=== PATIENT | female | born 1975 | race Caucasian/White ===

== ENCOUNTER → 2019-05-20 11:30 | Outpatient (CLI) | payer BC, MEDICAID, SELFPAY ==
--- NOTE | ~2019-05-20 | XR_ITS ---
XR lumbar spine 2-3V DATE: 05/20/2019 11:58 INDICATION: Left leg pain TECHNIQUE: AP, lateral, coned lateral lumbosacral views COMPARISON: 10/15/2017 lumbar spine FINDINGS: Surgical clips, right upper quadrant. Normal alignment of the lumbar spine. No fracture or bone destruction or spondylolisthesis. Lumbar an d lumbosacral interspaces appear preserved. The sacral iliac joints appear normal. IMPRESSION: No significant abnormality of the lumbar spine Reviewed, dictated and finalized at location A. 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
--- NOTE | ~2019-05-20 | XR_ITS ---
XR tibia fibula LT 2V DATE: 05/20/2019 11:58 INDICATION: Left leg pain TECHNIQUE: 2 views COMPARISON: None FINDINGS: No fracture, dislocation, periosteal reaction or bone destruction. IMPRESSION: Negative Reviewed, dictated and finalized at location A. 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
== END ==
PROVIDERS: PCP Family Medicine; Visit Provider Family Medicine
DX: M79.605 Pain in left leg (principal); E55.9 Vitamin D deficiency, unspecified; D50.9 Iron deficiency anemia, unspecified; D51.9 Vitamin B12 deficiency anemia, unspecified; R20.9 Unspecified disturbances of skin sensation; Z13.1 Encounter for screening for diabetes mellitus
CPT/HCPCS: 72100; 73590

== ENCOUNTER 2019-05-20 13:18 | Outpatient (CLI) | payer BC, MEDICAID, SELFPAY ==
[2019-05-20 14:45] LABS: Basophils Absolute Auto 0.1 K/mm3 (0.0-0.1); Basophils Percent Auto 0.7 % (0.2-1.2); Eosinophils Absolute Auto 0.1 K/mm3 (0-0.3); Eosinophils Percent Auto 1.4 % (0-4.4); Hematocrit 34.7 % (37.0-47.0); Hemoglobin 11.7 g/dL (12.0-15.0); Immature Granulocyte Absolute 0.03 K/mm3 (0.00-0.031); Immature Granulocyte Percent A 0.4 % (0-0.5); Lymphocytes Absolute Auto 1.49 K/mm3 (0.9-3.2); Lymphocytes Percent Auto 20.4 % (18.3-44.2); Mean Corpuscular HGB Conc 33.7 g/dl (32-36); Mean Corpuscular Hemoglobin 29.7 pg (26-34); Mean Corpuscular Volume 88.1 fl (80-100); Mean Platelet Volume 9.7 fl (7.4-10.4); Monocytes Absolute Auto 0.5 K/mm3 (0.1-0.6); Monocytes Percent Auto 6.3 % (2.6-8.5); Neutrophils Absolute Auto 5.2 K/mm3 (1.3-6.7); Neutrophils Percent Auto 70.8 % (45.5-73.1); Platelet Count Result 329 k/mm3 (150-375); Red Blood Count 3.94 M/mm3 (4.2-5.4); Red Cell Distribution Width 12.7 % (11.5-14.5); White Blood Count 7.3 K/mm3 (4.5-10.0)
[2019-05-20 14:54] LABS: Alanine Aminotransferase 26 U/L (4-35); Albumin Level 4.6 g/dL (3.5-5.1); Alkaline Phosphatase 80 U/L (38-126); Aspartate Amino Transferase 34 U/L (14-36); Bilirubin,Total 0.4 mg/dL (0.2-1.3); Blood Urea Nitrogen 9 mg/dL (7-17); Calcium 9.4 mg/dL (8.4-10.2); Carbon Dioxide 25 mmol/L (22-30); Chloride 99 mmol/L (98-107); Estimated Glomerular Filt Rate > 60; Glucose 88 mg/dL (65-105); Potassium 3.7 mmol/L (3.4-5.0); Sodium 139 mmol/L (137-145)
[2019-05-20 15:24] LABS: Iron 59 ug/dL (37-170)
[2019-05-20 15:29] LABS: Percent Iron Saturation 16 % (20-50)
[2019-05-20 15:34] LABS: Vitamin D 25 Hydroxy 20.8 ng/mL
[2019-05-20 16:00] LABS: Folic Acid 11.7 ng/mL (2.76->20)
== END 2019-05-20 13:19 | disposition home or self-care (01) ==
PROVIDERS: PCP Family Medicine; Visit Provider Family Medicine
DX: M79.605 Pain in left leg (principal); D50.9 Iron deficiency anemia, unspecified; E55.9 Vitamin D deficiency, unspecified; D51.9 Vitamin B12 deficiency anemia, unspecified; R20.9 Unspecified disturbances of skin sensation; Z13.1 Encounter for screening for diabetes mellitus
CPT/HCPCS: 36415; 80053; 82306; 82607; 82746; 83540; 83550; 84443; 85025

== ENCOUNTER → 2019-08-14 15:04 | Outpatient (CLI) | payer BC, SELFPAY ==
--- NOTE | ~2019-08-14 | XR_ITS ---
EXAMINATION: XR foot RT min 3V EXAM DATE: 08/14/2019 15:36 INDICATION: Foreign body removal 2 weeks ago. Make sure no foreign body exists. TECHNIQUE: Right foot dorsoplantar, lateral and oblique projections obtained and reviewed. Compariso n is made to prior examination from 12/05/2014. FINDINGS: Right metatarsal bones unremarkable. There are no acute fractures or dislocations identifi ed. There is no subcutaneous gas. The soft tissue is unremarkable. Moderate size calcaneal spurs. 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 There are no radiopaque foreign bodies. Please note that wood and most nonmetallic foreign bodies ma y be difficult to identify on imaging. What type of foreign body was removed? IMPRESSION: No radiopaque foreign bodies identified. Reviewed, dictated and finalized at location A.
== END ==
PROVIDERS: PCP Family Medicine; Visit Provider Podiatrist Foot & Ankle Surgery
DX: S99.921A Unspecified injury of right foot, initial encounter (principal)
CPT/HCPCS: 73630

== ENCOUNTER 2019-09-02 11:14 | Outpatient (CLI) | payer BC, MEDICAID, SELFPAY ==
--- NOTE | ~2019-09-02 | CT_ITS ---
EXAMINATION: CT sinus wo con DATE: 09/02/2019 12:06 INDICATION: Chronic congestion. Chronic sinusitis. TECHNIQUE: Computed tomography (CT) of the paranasal sinuses was performed without contrast. Iterativ e reconstruction technique was employed. Exam dose: 275.33 mGy-cm total exam DLP. COMPARISON: None FINDINGS: There is leftward deviation of nasal septum. The nasal turbinates are prominent, relatively symmetric. There is intralamellar cell of both middle nasal turbinates, more prominent on the left. An up to 13 mm polyp or mucous retention cyst is noted in the lower lateral base of the right maxilla ry sinus. There is mild focal soft tissue swelling of some ethmoid air cells bilaterally. Otherwise the paranas al sinuses are normally developed and aerated. The ostiomeatal units are patent bilaterally. Normal development and aeration of the mastoid air cells. Middle and inner ear apparatus appear sandi l bilaterally. IMPRESSION: Leftward deviation of nasal septum Interlamellar cell of both middle nasal turbinates 13 mm polyp or mucous retention cyst of right maxillary sinus Reviewed, dictated and finalized at Location A. Reviewed, dictated and finalized at location A.
== END 2019-09-02 11:15 | disposition home or self-care (01) ==
LOC: ANHIMG 11:37
PROVIDERS: PCP Family Medicine; Visit Provider Nurse Practitioner Family
DX: J32.9 Chronic sinusitis, unspecified (principal); J34.2 Deviated nasal septum; J34.89 Other specified disorders of nose and nasal sinuses
CPT/HCPCS: 70486

== ENCOUNTER 2019-10-16 17:58 | Emergency (ER) | payer MEDICAID, SELFPAY ==
[2019-10-16 18:00] VITALS: BP 157/95; PULSE 89; RESP 20; TEMP 37.7; O2SAT 100
--- NOTE | 2019-10-16 18:02 | ED.GENADULT ---
HPI - General Adult General Stated complaint: bruised right side Time Seen by Provider: 10/16/19 18:02 Source: patient Mode of arrival: ambulatory Limitations: no limitations History of Present Illness HPI narrative: 44-year-old female patient presents to the [facility] with complaints of a bruise to the right lower flank area that she first noticed today. Denies any recent injury that she is aware of. Patient states that actually does not even hurt she is not having any difficulty walking however she noticed a bruise and so her family told her to come and get checked out. Patient states that she was moving some stuff the other day at her mother's house but does not remember any injury or bumping anything that she can remember. Denies being on any blood thinners. Related Data Home Medications Medication Instructions Recorded Confirmed ferrous sulfate 04/02/19 furosemide 04/02/19 potassium chloride meq PO 04/02/19 fexofenadine 180 mg tablet 180 mg PO DAILY 09/18/19 Allergies Allergy/AdvReac Type Severity Reaction Status Date / Time nitrofurantoin Allergy Mild Rash Verified 10/16/19 18:19 [From Macrobid] Sulfa (Sulfonamide Allergy Unknown RASH Verified 10/16/19 18:19 Antibiotics) PROCHLORPERAZINE EDISYLATE Allergy Mild ANXIOUS Uncoded 10/16/19 18:19 Review of Systems Review of Systems: Narrative: CONSTITUTIONAL: Denies fever, chills, or sweats. EYES: Denies visual changes, redness, or discharge. ENT: Denies rhinorrhea, congestion, sore throat, or otalgia. CARDIOVASCULAR: Denies chest pain, palpitations, or edema. RESPIRATORY: Denies cough or dyspnea. GASTROINTESTINAL: Denies abdominal pain, nausea, vomiting, or diarrhea. GENITOURINARY: Denies dysuria or hematuria. SKIN: Denies rash or itching. Positive bruise to right flank/lower abdomen area MUSCULOSKELETAL: Denies back pain, joint pain, or myalgia. NEUROLOGIC: Denies headache, numbness, or weakness. PSYCHIATRIC: Denies anxiety or depression. [facility] Past Medical History Medical History (Updated 10/16/19 @ 18:23 by TOSIN Wright) Gallbladder attack Hypertension Surgical History Surgical History (Updated 10/16/19 @ 18:20 by TOSIN Wright) History of hernia repair Comments At the time of my signature I agree with nursing past medical history, surgical, social, and family history. There is no relevant family history pertinent to the presenting complaint. Exam Narrative: Exam Narrative: GENERAL: Well-appearing, well-nourished, and in no acute distress. HEAD: Normocephalic, atraumatic. EYES: PERRLA and EOMI. ENT: Nares clear, no rhinorrhea or epistaxis. Mucous membranes moist. NECK: Supple. No lymphadenopathy CHEST: Clear to auscultation. No respiratory distress. HEART: Regular rate and rhythm. No murmur heard. Normal peripheral pulses. ABDOMEN: Soft, nontender, nondistended, normal active bowel sounds. EXTREMITIES: Normal range of motion. No edema. SKIN: Warm, dry, no rash. Patient has leg bruise noted to the right flank/abdomen area. The bruise measures approximately 8 to 10 cm. It does appear healing for the edges have yellowing/greenish color to it. Patient has good range of motion with can walk with a steady gait. Not complaining of any pain. Which NEURO: No focal deficits. Alert and oriented x3. Course Vital Signs Vital signs: Vital signs reviewed. Medical Decision Making Differential Diagnosis Differential Diagnosis: Differential diagnosis: Abscess, cellulitis, hidradenitis, laceration, puncture wound. Discussed with patient that it does appear that she has a bruise to the area however does appear to be healing due to the fact that the edges are turning to a yellowish-greenish color. Discussed with her that most likely she hit something to cause the bruising but the bruising does look old does not look new today. Discussed with patient that since is not even really bothering her there is not much I can do I would
== END 2019-10-16 18:25 | disposition home or self-care (01) ==
PROVIDERS: Emergency Provider Nurse Practitioner Family; PCP Family Medicine
DX: S30.1XXA Contusion of abdominal wall, initial encounter (principal); X58.XXXA Exposure to other specified factors, initial encounter; I10 Essential (primary) hypertension
CPT/HCPCS: 99211; G0463

== ENCOUNTER 2019-11-19 18:31 | Emergency (ER) | payer OTHER, SELFPAY ==
[2019-11-19 18:41] VITALS: BP 145/83; PULSE 69; RESP 16; TEMP 37.1; O2SAT 100
--- NOTE | 2019-11-19 18:47 | ED.WOUNDLAC ---
HPI - Wound/Laceration General Chief Complaint: Wound/Laceration Stated Complaint: laceration Time Seen by Provider: 11/19/19 18:43 Source: patient and RN notes reviewed Mode of arrival: ambulatory Limitations: no limitations History of Present Illness HPI narrative: Patient presents today complaining of a laceration to her left fourth finger that was sustained 1 hour prior to arrival when she was moving an entertainment center and a piece of glass shattered. Denies foreign body sensation. She is up-to-date on her tetanus vaccine. Denies any current pain. She has tried no [id number] interventions prior to arrival. She sought treatment today because the area would not stop bleeding. Related Data Home Medications Medication Instructions Recorded Confirmed ferrous sulfate 325 mg PO DAILY 04/02/19 10/16/19 furosemide 40 mg PO DAILY 04/02/19 10/16/19 potassium chloride 20 meq PO DAILY 04/02/19 10/16/19 fexofenadine 180 mg tablet 180 mg PO DAILY 09/18/19 10/16/19 Allergies Allergy/AdvReac Type Severity Reaction Status Date / Time nitrofurantoin Allergy Mild Rash Verified 10/17/19 09:09 [From Macrobid] Sulfa (Sulfonamide Allergy Unknown RASH Verified 10/17/19 09:09 Antibiotics) PROCHLORPERAZINE EDISYLATE Allergy Mild ANXIOUS Uncoded 10/17/19 09:09 Review of Systems Review of Systems: Narrative: CONSTITUTIONAL: Denies body aches, fever, chills, or sweats. EYES: Denies visual changes, redness, or discharge. ENT: Denies rhinorrhea, congestion, sore throat, or otalgia. CARDIOVASCULAR: Denies chest pain, palpitations, or edema. RESPIRATORY: Denies cough or dyspnea. GASTROINTESTINAL: Denies abdominal pain, nausea, vomiting, or diarrhea. GENITOURINARY: Denies dysuria or hematuria. SKIN: Denies rash, itching. + Laceration to left fourth finger MUSCULOSKELETAL: Denies back pain, joint pain, or myalgia. NEUROLOGIC: Denies headache, numbness, tingling, or weakness. PSYCH: Denies depression or anxiety. [facility] Past Medical History Medical History Gallbladder attack Hypertension Surgical History Surgical History (System 10/17/19 @ 09:09 by Mariia Caldwell) History of hernia repair Social History Social History (System 10/17/19 @ 09:09 by Mariia Caldwell) Alcohol intake: never Comments At time of signature, I have reviewed and agree with nursing past medical, surgical, social and family history unless otherwise noted. Please see nursing chart for further information. There is no relevant family history pertinent to the presenting complaint Exam Narrative: Exam Narrative: GENERAL: Well-appearing, well-nourished, and in no acute distress. HEAD: Normocephalic, atraumatic. EYES: EOMI. No redness or drainage. Conjunctivae normal. ENT: Mucous membranes pink and moist. NECK: Normal AROM. CHEST: No respiratory distress. EXTREMITIES: Normal range of motion. No edema. SKIN: Warm, dry, no rash. Normal skin turgor. 4 mm very superficial flap laceration to the pad of the left fourth finger. No active bleeding. No foreign body noted. Flap was replaced. Neosporin and Band-Aid applied after exam. Distal sensation intact. Capillary refill normal. Full range of motion of the finger. NEURO: No focal deficits. Alert and oriented x3. Gait steady. PSYCH: Normal affect. No signs of depression or anxiety. Course Vital Signs Vital signs: Vital Signs Temperature 98.7 F 11/19/19 18:41 Pulse Rate 69 11/19/19 18:41 Respiratory Rate 16 11/19/19 18:41 Blood Pressure 145/83 H 11/19/19 18:41 Pulse Oximetry 100 11/19/19 18:41 Temperature 98.7 F 11/19/19 18:41 Pulse Rate 69 11/19/19 18:41 Respiratory Rate 16 11/19/19 18:41 Blood Pressure 145/83 H 11/19/19 18:41 Pulse Oximetry 100 11/19/19 18:41 Reviewed. Pt has been instructed to follow up with her PCP regarding her elevated blood pressure today. MDM
== END 2019-11-19 18:55 | disposition home or self-care (01) ==
PROVIDERS: Emergency Provider Nurse Practitioner; PCP Family Medicine
DX: S61.215A Laceration without foreign body of left ring finger without damage to nail, initial encounter (principal); W25.XXXA Contact with sharp glass, initial encounter; I10 Essential (primary) hypertension
CPT/HCPCS: 99212; G0463

== ENCOUNTER → 2019-11-26 11:58 | Outpatient (CLI) | payer OTHER, SELFPAY ==
--- NOTE | ~2019-11-26 | XR_ITS ---
EXAMINATION: XR cervical spine 4-5V DATE: 11/26/2019 13:00 INDICATION: Intermittent posterior neck pain. TECHNIQUE: 4 views of cervical spine were obtained. COMPARISON: None. FINDINGS: There is mild kyphosis of cervical spine. There is 6 degrees levocurvature of cervicothorac ic spine. Vertebral body heights are normal. There is mildly decreased disc height at C5-C6. There is multilevel mild facet joint osteoarthritis. There is mild central canal stenosis at C5-C6. No prever tebral soft tissue swelling. IMPRESSION: 1. Mild cervical spondylosis. Reviewed, dictated and finalized at location A.
== END ==
PROVIDERS: PCP Family Medicine; Visit Provider Family Medicine
DX: M47.892 Other spondylosis, cervical region (principal)
CPT/HCPCS: 72050

== ENCOUNTER 2019-11-27 14:39 | Outpatient (CLI) | payer OTHER, SELFPAY ==
--- NOTE | ~2019-11-27 | CT_ITS ---
EXAMINATION: CT abdomen pelvis w con DATE: 11/27/2019 15:20 INDICATION: Nausea and unspecified abdominal pain TECHNIQUE: Computed tomography (CT) of the abdomen and pelvis was performed with 100 mL Omnipaque-350 intravenous contrast. Automated exposure control and iterative reconstruction technique were employe d. The dose-length product was 1082.52 mGy-cm. COMPARISON: 11/12/2018 FINDINGS: Minimal atelectasis at the lingula. Mild elevation of the left hemidiaphragm. Heart size is normal. N o pericardial or pleural effusion. Cholecystectomy clips at the gallbladder fossa. Liver, spleen, العلي creas, bilateral adrenal glands and kidneys are normal. There is mild colonic diverticulosis with a s igmoid predominance. There is no adjacent inflammatory change to suggest diverticulitis. No bowel ob struction. Appendix is normal. Bladder, anteverted uterus and right adnexa are normal. 3 cm left adne xal cyst. No free intraperitoneal gas or fluid. No pathologically enlarged abdominal or pelvic lympha denopathy. Tiny fat-containing umbilical hernia. Small bone island at the left femoral head. Mild sca ttered degenerative skeletal changes in the pelvis. IMPRESSION: 1. Normal appendix. 2. 3 cm left adnexal cyst/follicle. No other acute intra-abdominal/pelvic process. 3. Mild diverticulosis. Reviewed, dictated and finalized at location A. IMPRESSION: 1. Normal appendix. 2. 3 cm left adnexal cyst/follicle. No other acute intra-abdominal/pelvic proce ss. 3. Mild diverticulosis.
[2019-11-27 15:08] LABS: Estimated Glomerular Filt Rate > 60
== END 2019-11-27 14:40 ==
PROVIDERS: PCP Family Medicine; Visit Provider Family Medicine
DX: R10.9 Unspecified abdominal pain (principal); K57.30 Diverticulosis of large intestine without perforation or abscess without bleeding
CPT/HCPCS: 36415; 74177; Q9967

== ENCOUNTER 2019-12-09 13:23 | Emergency (ER) | payer OTHER, SELFPAY ==
--- NOTE | 2019-12-09 13:33 | ED.LOWEXIN ---
HPI - Extremity Injury (Lower) General Chief Complaint: Extremity Problem,Nontraumatic Stated Complaint: right foot pain Time Seen by Provider: 12/09/19 13:50 Source: patient and RN notes reviewed Mode of arrival: ambulatory Limitations: no limitations History of Present Illness HPI Narrative: 44-year-old female presents with concern for right lateral foot and ankle pain. She denies injury, trauma. Reports pain started spontaneously. Reports some pain at rest, pain with weightbearing or range of motion. She denies swelling, bruising. Denies any intervention MD complaint: foot injury Related Data Home Medications Medication Instructions Recorded Confirmed ferrous sulfate 325 mg PO DAILY 04/02/19 12/09/19 potassium chloride 20 meq PO DAILY 04/02/19 12/09/19 fexofenadine 180 mg tablet 180 mg PO DAILY 09/18/19 12/09/19 cetirizine 10 mg PO DAILY 12/09/19 12/09/19 docusate sodium [DOK] 100 mg PO DAILY 12/09/19 12/09/19 furosemide 20 mg PO DAILY 12/09/19 12/09/19 lisinopril 2.5 mg PO DAILY 12/09/19 12/09/19 losartan 25 mg PO DAILY 12/09/19 12/09/19 ondansetron HCl 4 mg PO DAILY 12/09/19 12/09/19 pantoprazole 40 mg PO DAILY 12/09/19 12/09/19 Allergies Allergy/AdvReac Type Severity Reaction Status Date / Time nitrofurantoin Allergy Mild Rash Verified 10/17/19 09:09 [From Macrobid] Sulfa (Sulfonamide Allergy Unknown RASH Verified 10/17/19 09:09 Antibiotics) PROCHLORPERAZINE EDISYLATE Allergy Mild ANXIOUS Uncoded 10/17/19 09:09 Review of Systems Review of Systems: Narrative: CONSTITUTIONAL: Denies malaise, chills, sweats, or fever. CARDIOVASCULAR: Denies chest pain, palpitations RESPIRATORY: Denies cough or dyspnea. SKIN: Denies bruising MUSCULOSKELETAL: Reports right ankle and lateral foot pain NEUROLOGIC: Denies numbness, weakness All systems reviewed & are unremarkable except as noted in HPI and below PMFSH Surgical History Surgical History (System 10/17/19 @ 09:09 by Mariia Caldwell) History of hernia repair Social History Social History (System 10/17/19 @ 09:09 by Mariia Caldwell) Alcohol intake: never Comments At time of signature, agree with nursing past medical, surgical, social and family history. There is no relevant family history pertinent to the presenting complaint Exam Narrative: Exam Narrative: GENERAL: Well-appearing, well-nourished, and in no acute distress. HEAD: Normocephalic, atraumatic. EYES: PERRLA, conjunctivae clear NECK: Supple. CHEST: Speaks in full sentences. No respiratory distress. HEART: Regular rate and rhythm. Normal and equal peripheral pulses. EXTREMITIES: Right foot, digits have normal strength and sensation, no edema, normal range of motion. 5/5 strength with digit and ankle flexion and extension. Normal sensation with sensitivity to light touch and pain. No open wounds, no skin tenting, no devitalized tissue or atrophy, no trophic changes, no ecchymosis, no obvious deformity, alignment normal, no point tenderness, nearby joints and structures intact. Distal pulses palpable and equal bilaterally, skin warm, dry, pink. Capillary refill less than 3 seconds. SKIN: Warm, dry, no rash. NEURO: Alert and oriented x3. PSYCH: Normal mood and affect Course Course Emergency Course: Patient is aware of diagnosis, understands and agrees to treatment plan. Anticipatory guidance given. Patient agrees to follow-up as directed and is aware of reasons to seek care at the emergency department. Portions of this record may have been created with voice recognition software Vital Signs Vital signs: Vital Signs Temperature 99.3 F 12/09/19 13:41 Pulse Rate 63 12/09/19 13:41 Respiratory Rate 16 12/09/19 13:41 Blood Pressure 133/81 12/09/19 13:41 Pulse Oximetry 98 12/09/19 13:41 Temperature 99.3 F 12/09/19 13:41 Pulse Rate 63 12/09/19 13:41 Respiratory Rate 16 12/09/19 13:41 Blood Pressure 133/81 12/09/19 13:41 Pulse Oximetry 98
[2019-12-09 13:41] VITALS: BP 133/81; PULSE 63; RESP 16; TEMP 37.4; O2SAT 98
== END 2019-12-09 14:00 | disposition home or self-care (01) ==
PROVIDERS: Emergency Provider Nurse Practitioner; PCP Family Medicine
DX: M25.571 Pain in right ankle and joints of right foot (principal); E78.00 Pure hypercholesterolemia, unspecified; I10 Essential (primary) hypertension
CPT/HCPCS: 99212; G0463

== ENCOUNTER 2019-12-19 10:39 | Outpatient (CLI) | payer MEDICAID, SELFPAY ==
--- NOTE | ~2019-12-19 | XR_ITS ---
XR tibia fibula LT 2V DATE: 12/19/2019 11:09 INDICATION: Lower leg injury. Knee pain. TECHNIQUE: AP and lateral views COMPARISON: None FINDINGS: Plantar and posterior calcaneal enthesopathy. No fracture, dislocation, periosteal reaction or bone destruction of the tibia or fibula. Normal alig nment at the knee and ankle joints. IMPRESSION: Plantar and posterior calcaneal enthesopathy Reviewed, dictated and finalized at location A.
--- NOTE | ~2019-12-19 | XR_ITS ---
EXAMINATION: XR knee LT 3V DATE: 12/19/2019 11:09 INDICATION: Left knee pain TECHNIQUE: Three views of the left knee were obtained. COMPARISON: None. FINDINGS: Alignment is normal. No fracture or osteochondral lesion. There is mild tricompartmental os teoarthritis characterized by tiny marginal osteophytes. No joint effusion/synovitis. Soft tissues a re unremarkable. IMPRESSION: 1. No acute osseous abnormality. Reviewed, dictated and finalized at location B.
== END 2019-12-19 10:40 | disposition home or self-care (01) ==
PROVIDERS: PCP Family Medicine; Visit Provider Nurse Practitioner Family
DX: S89.92XA Unspecified injury of left lower leg, initial encounter (principal); X58.XXXA Exposure to other specified factors, initial encounter; M77.32 Calcaneal spur, left foot
CPT/HCPCS: 73562; 73590

== ENCOUNTER 2019-12-27 13:43 | Outpatient (CLI) | payer MEDICAID, SELFPAY ==
--- NOTE | ~2019-12-27 | CT_ITS ---
EXAMINATION: CT abdomen pelvis wo con DATE: 12/27/2019 14:42 INDICATION: Abdominal pain. Diverticulitis. TECHNIQUE: Computed tomography (CT) of the abdomen and pelvis was performed without intravenous contr ast. Automated exposure control and iterative reconstruction technique were employed. The dose-length product was 1522.75 mGy-cm. COMPARISON: CT abdomen and pelvis 11/27/2019 FINDINGS: The visualized portions of the lung bases demonstrate minimal atelectasis. No pleural effus ion. The heart size is normal. No pericardial effusion. There is diffuse hepatic steatosis. There are changes of cholecystectomy. The liver, pancreas, adrenal glands, and kidneys are normal. There is no urolithiasis. There is diverticulosis of the colon without evidence of diverticulitis. The appendix is normal. Stool distends the rectum. There are no pathologically enlarged lymph nodes. There is no f ree intraperitoneal fluid. There is mild thoracolumbar spondylosis. IMPRESSION: 1. Stool distends the rectum. 2. Diffuse hepatic steatosis. Reviewed, dictated and finalized at location A.
== END 2019-12-27 13:44 | disposition home or self-care (01) ==
PROVIDERS: PCP Family Medicine; Visit Provider Family Medicine
DX: R10.9 Unspecified abdominal pain (principal); K76.0 Fatty (change of) liver, not elsewhere classified
CPT/HCPCS: 74176

== ENCOUNTER → 2020-02-28 08:26 | Outpatient (CLI) | payer OTHER, SELFPAY ==
--- NOTE | ~2020-02-28 | XR_ITS ---
EXAMINATION: XR chest 2V DATE: 02/28/2020 08:47 INDICATION: Chest congestion. COVID-19 positive. TECHNIQUE: Frontal and lateral views of the chest were obtained. COMPARISON: Chest 2 views 03/21/2018 FINDINGS: The chest demonstrates clear lungs without pneumonia, pleural effusion, or pneumothorax. Th e heart size is normal. Surgical clips in the right upper quadrant are likely from cholecystectomy. IMPRESSION: 1. No acute cardiopulmonary disease. Reviewed, dictated and finalized at location A. [employer]
== END ==
PROVIDERS: PCP Nurse Practitioner Family; Visit Provider Nurse Practitioner Family
DX: U07.1 COVID-19 (principal)
CPT/HCPCS: 71046

== ENCOUNTER 2020-03-11 18:22 | Emergency (ER) | payer OTHER, SELFPAY ==
[2020-03-11 18:30] VITALS: BP 151/77; PULSE 75; RESP 12; TEMP 37.7; O2SAT 100
--- NOTE | 2020-03-11 19:17 | ED.EXTPRO ---
HPI - Extremity Problem General Chief complaint: Extremity Problem,Nontraumatic Stated complaint: right 1st digit toe sweling / pain Time Seen by Provider: 03/11/20 19:08 Source: patient and RN notes reviewed Mode of arrival: ambulatory Limitations: no limitations History of Present Illness HPI Narrative: Patient presents today complaining of swelling and pain to her right great toe that she noted today. Denies any injury or trauma to the area. Pain increases when she walks or has shoes on. Denies numbness or tingling to the toe or foot. Currently rates her pain 4/10 and has tried no medication for symptoms prior to arrival. She currently is on day 7 of 10 of Augmentin for sinusitis. 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 MD Complaint: extremity pain and extremity swelling Related Data Home Medications Medication Instructions Recorded Confirmed amoxicillin-pot clavulanate 1 tablet PO Q12H 03/11/20 03/11/20 [Augmentin] docusate sodium 100 mg PO BID 03/11/20 03/11/20 ferrous sulfate 325 mg PO TID 03/11/20 03/11/20 furosemide [Lasix] 40 mg PO BID 03/11/20 03/11/20 hydroxyzine HCl [Atarax] 25 mg PO TID 03/11/20 03/11/20 lisinopril [Zestril] 40 mg PO DAILY 03/11/20 03/11/20 potassium chloride [Klor-Con M20] 20 meq PO DAILY 03/11/20 03/11/20 Allergies Allergy/AdvReac Type Severity Reaction Status Date / Time nitrofurantoin Allergy Mild Rash Verified 03/11/20 18:36 [From Macrobid] Sulfa (Sulfonamide Allergy Unknown RASH Verified 03/11/20 18:36 Antibiotics) PROCHLORPERAZINE EDISYLATE Allergy Mild ANXIOUS Uncoded 03/11/20 18:36 Review of Systems Review of Systems: Narrative: CONSTITUTIONAL: Denies body aches, fever, chills, or sweats. EYES: Denies visual changes, redness, or discharge. ENT: Denies rhinorrhea, congestion, sore throat, or otalgia. CARDIOVASCULAR: Denies chest pain, palpitations, or edema. RESPIRATORY: Denies cough or dyspnea. GASTROINTESTINAL: Denies abdominal pain, nausea, vomiting, or diarrhea. GENITOURINARY: Denies dysuria or hematuria. SKIN: Denies rash, itching, or wounds. MUSCULOSKELETAL: Denies back pain, or myalgia. + Right great toe pain and swelling NEUROLOGIC: Denies headache, numbness, tingling, or weakness. PSYCH: Denies depression or anxiety. [facility] Past Medical History Medical History (Updated 03/11/20 @ 19:28 by Shalini Shaffer, [facility], ) Gallbladder attack Hypertension Neuropathy Surgical History Surgical History (System 10/17/19 @ 09:09 by Mariia Caldwell) History of hernia repair Family History Family History (System 10/17/19 @ 09:09 by Mariia Caldwell) Mother Family history of malignant neoplasm of breast in first degree relative Sibling Patient's brother is in good health No family history of malignant neoplasm Father Family history of heart disease in male family member before age 55 Other Diabetes mellitus Family history of cardiovascular disease Family history of malignant neoplasm of breast Social History Social History (System 10/17/19 @ 09:09 by Mariia Caldwell) Alcohol intake: never Gender identity (if verbalized by the patient): Female Comments At time of signature, I have reviewed and agree with nursing past medical, surgical, social and family history unless otherwise noted. Please see nursing chart for further information. There is no relevant family history pertinent to the presenting complaint Exam Narrative: Exam Narrative: GENERAL: Well-appearing, over-nourished, and in no acute distress. HEAD: Normocephalic, atraumatic. EYES: EOMI. No redness or drainage. Conjunctivae normal. ENT: Mucous membranes pink and moist. NECK: Normal AROM. CHEST: No respiratory distress. EXTREMITIES: Right great toe: Dorsal aspect- mild to moderate edema to the interphalangeal joint with mild erythema extending from joint to the base of the toe. Distal sensa
== END 2020-03-11 19:28 | disposition home or self-care (01) ==
PROVIDERS: Emergency Provider Nurse Practitioner; PCP Family Medicine
DX: S91.101A Unspecified open wound of right great toe without damage to nail, initial encounter (principal); X58.XXXA Exposure to other specified factors, initial encounter; E78.00 Pure hypercholesterolemia, unspecified; I10 Essential (primary) hypertension; G62.9 Polyneuropathy, unspecified
CPT/HCPCS: 99213; G0463

== ENCOUNTER 2020-03-15 08:05 | Outpatient (CLI) | payer OTHER, SELFPAY ==
--- NOTE | 2020-03-17 08:14 | WPDSIXMINUTE ---
Six Minute Walk Six Minute Walk: The patients O2 sats started at 98% and dropped as low as 97% Total walk distance 335.28 meters conclusion: This patient does not qualify for home oxygen therapy
== END 2020-03-15 08:06 | disposition home or self-care (01) ==
PROVIDERS: PCP Family Medicine; Visit Provider Internal Medicine Pulmonary Disease
DX: U07.1 COVID-19 (principal)
CPT/HCPCS: 94618

== ENCOUNTER 2020-03-24 13:24 | Emergency (ER) | payer OTHER, SELFPAY ==
[2020-03-24 13:33] VITALS: BP 150/93; PULSE 71; RESP 16; TEMP 36.6; O2SAT 100
--- NOTE | 2020-03-24 13:58 | ED.URI ---
HPI - URI/Sore Throat General Chief Complaint: Upper Respiratory Infection Stated Complaint: Sore Throat,Ear Pain Time Seen by Provider: 03/24/20 13:51 Source: patient and RN notes reviewed Mode of arrival: ambulatory Limitations: no limitations History of Present Illness HPI Narrative: Patient presents today complaining of a sore throat x2 days with postnasal drainage. She currently rates her pain 7/10 and has tried no medication for symptoms prior to arrival. She denies any additional symptoms to include ear pain, cough, fever, nasal congestion or rhinorrhea. Patient is currently taking amoxicillin for 2 infected wisdom teeth prescribed by her dentist. On 03/11/2020, she was prescribed a course of clindamycin for an infected toe by [facility] and states she did finish this prescription and her toe has improved. No recent sick contacts. COVID positive in January. MD elicited complaint: sore throat Related Data Home Medications Medication Instructions Recorded Confirmed docusate sodium 100 mg PO BID 03/11/20 03/24/20 ferrous sulfate 325 mg PO TID 03/11/20 03/24/20 furosemide [Lasix] 40 mg PO BID 03/11/20 03/24/20 hydroxyzine HCl [Atarax] 25 mg PO TID 03/11/20 03/24/20 potassium chloride [Klor-Con M20] 20 meq PO DAILY 03/11/20 03/24/20 amoxicillin 500 mg PO TID 03/24/20 03/24/20 fluconazole 03/24/20 ibuprofen 03/24/20 Allergies Allergy/AdvReac Type Severity Reaction Status Date / Time nitrofurantoin Allergy Mild Rash Verified 03/24/20 13:34 [From Macrobid] Sulfa (Sulfonamide Allergy Unknown RASH Verified 03/24/20 13:34 Antibiotics) PROCHLORPERAZINE EDISYLATE Allergy Mild ANXIOUS Uncoded 03/24/20 13:34 Review of Systems Review of Systems: Narrative: CONSTITUTIONAL: Denies body aches, fever, chills, or sweats. EYES: Denies visual changes, redness, or discharge. ENT: Denies rhinorrhea, congestion, or otalgia.+ Sore throat, postnasal drip CARDIOVASCULAR: Denies chest pain, palpitations, or edema. RESPIRATORY: Denies cough or dyspnea. GASTROINTESTINAL: Denies abdominal pain, nausea, vomiting, or diarrhea. GENITOURINARY: Denies dysuria or hematuria. SKIN: Denies rash, itching, or wounds. MUSCULOSKELETAL: Denies back pain, joint pain, or myalgia. NEUROLOGIC: Denies headache, numbness, tingling, or weakness. PSYCH: Denies depression or anxiety. [facility] Past Medical History Medical History (Updated 03/24/20 @ 14:01 by Shalini Shaffer, [facility], ) Gallbladder attack Hypertension Neuropathy Surgical History Surgical History (System 10/17/19 @ 09:09 by Mariia Caldwell) History of hernia repair Family History Family History (System 10/17/19 @ 09:09 by Mariia Caldwell) Mother Family history of malignant neoplasm of breast in first degree relative Sibling Patient's brother is in good health No family history of malignant neoplasm Father Family history of heart disease in male family member before age 55 Other Diabetes mellitus Family history of cardiovascular disease Family history of malignant neoplasm of breast Social History Social History (System 10/17/19 @ 09:09 by Mariia Caldwell) Alcohol intake: never Gender identity (if verbalized by the patient): Female Comments At time of signature, I have reviewed and agree with nursing past medical, surgical, social and family history unless otherwise noted. Please see nursing chart for further information. There is no relevant family history pertinent to the presenting complaint Exam Narrative: Exam Narrative: GENERAL: Well-appearing, over-nourished, and in no acute distress. HEAD: Normocephalic, atraumatic. EYES: EOMI. No redness or drainage. Conjunctivae normal. ENT: Mucous membranes pink and moist. Nares clear. No rhinorrhea. TMs normal bilaterally. Throat normal with mild white postnasal drainage. Uvula midline. NECK: Normal AROM. Supple. No lymphadenopathy. CHEST: No respiratory distress. Clear to au
== END 2020-03-24 14:06 | disposition home or self-care (01) ==
PROVIDERS: Emergency Provider Nurse Practitioner; PCP Family Medicine
DX: J06.9 Acute upper respiratory infection, unspecified (principal); I10 Essential (primary) hypertension; G62.9 Polyneuropathy, unspecified; Z86.19 Personal history of other infectious and parasitic diseases; E78.00 Pure hypercholesterolemia, unspecified
CPT/HCPCS: 87081; 87880; 99213; G0463

== ENCOUNTER 2020-04-26 13:39 | Outpatient (CLI) | payer OTHER, SELFPAY ==
--- NOTE | ~2020-04-26 | CT_ITS ---
EXAMINATION: CT abdomen pelvis w con INDICATION: Right lower quadrant pain TECHNIQUE: Computed tomographic images of the abdomen and pelvis were obtained after the administrati on of 100 cc of Omnipaque 350 intravenous contrast. The dose-length product (DLP) was 1518.81 mGy-cm. Automated exposure control and iterative reconstruction technique were employed. COMPARISON: 12/27/2019 FINDINGS: Minimal dependent atelectasis is present in the lung bases. The heart size is normal. The g allbladder is surgically absent. The liver, spleen, pancreas, and adrenal glands are normal. There th e kidneys are unremarkable. There is no free intraperitoneal gas or evidence of bowel obstruction. No pathologically enlarged abdominal or pelvic lymph nodes are identified. The appendix is normal. [place] mike diverticulosis is present without evidence of diverticulitis. There are fat-containing umbilical and supraumbilical hernias. IMPRESSION: 1. No CT correlate for the patient's symptoms. Reviewed, dictated and finalized at location A. TRONIC TESTER
[2020-04-26 14:21] LABS: Estimated Glomerular Filt Rate > 60
== END 2020-04-26 13:40 | disposition home or self-care (01) ==
PROVIDERS: PCP Family Medicine; Visit Provider Nurse Practitioner Family
DX: Z87.442 Personal history of urinary calculi (principal); R10.31 Right lower quadrant pain
CPT/HCPCS: 74177; Q9967

== ENCOUNTER 2020-05-14 13:36 | Emergency (ER) | payer OTHER, SELFPAY ==
--- NOTE | ~2020-05-14 | XR_ITS ---
EXAMINATION: XR tibia fibula RT 2V DATE: 05/14/2020 14:10 INDICATION: Lateral right lower leg pain. TECHNIQUE: 2 views of right tibia and fibula on 4 radiographs were obtained. COMPARISON: Right foot radiographs 08/14/19, right tibia and fibula radiographs 01/02/2008 FINDINGS: There is a fragment of heterotopic ossification distal to medial malleolus, consistent with age-indeterminate fracture. There is mild tricompartment osteoarthritis of right knee. There are ent hesophytes at the posterior and plantar aspects of calcaneal tuberosity. No knee joint effusion. IMPRESSION: 1. Age-indeterminant avulsion fracture of distal tip of medial malleolus. 2. Mild right knee osteoarthritis. Reviewed, dictated and finalized at location A. SPLICER
[2020-05-14 13:42] VITALS: BP 144/80; PULSE 63; RESP 20; TEMP 37.7; O2SAT 100
--- NOTE | 2020-05-14 13:43 | ED.LOWEXIN ---
HPI - Extremity Injury (Lower) General Chief Complaint: Extremity Injury, Lower Stated Complaint: right leg injury Time Seen by Provider: 05/14/20 13:43 Source: patient and RN notes reviewed History of Present Illness HPI Narrative: Patient is a 45-year-old female who presents the urgent care with complaints of right leg injury. Patient states that she slipped on the step and hit the left leg on the concrete. Patient states that she also has a couple abrasions to the right fingers. States it happened just prior to arrival. Denies of any other injuries from the fall. Denies of hitting her head or loss of consciousness. Patient has not taken anything [id number] for pain prior to arrival. No other acute complaints. No acute distress noted. Patient ambulating without difficulty. Patient aware of the plan of care. Some parts of this dictation were generated by voice recognition software and may contain typographical and/or grammatical inaccuracies. Related Data Home Medications Medication Instructions Recorded Confirmed ferrous sulfate 325 mg PO TID 03/11/20 03/24/20 furosemide [Lasix] 40 mg PO BID 03/11/20 03/24/20 hydroxyzine HCl [Atarax] 25 mg PO TID 03/11/20 03/24/20 potassium chloride [Klor-Con M20] 20 meq PO DAILY 03/11/20 03/24/20 cephalexin [Keflex] 500 mg PO Q12H 05/14/20 05/14/20 lisinopril 2.5 mg PO DAILY 05/14/20 05/14/20 Allergies Allergy/AdvReac Type Severity Reaction Status Date / Time nitrofurantoin Allergy Mild Rash Verified 05/14/20 13:50 [From Macrobid] Sulfa (Sulfonamide Allergy Unknown RASH Verified 05/14/20 13:50 Antibiotics) PROCHLORPERAZINE EDISYLATE Allergy Mild ANXIOUS Uncoded 03/24/20 13:34 Review of Systems Review of Systems: Narrative: CONSTITUTIONAL: Denies fever, chills, or sweats. EYES: Denies visual changes, redness, or discharge. ENT: Denies rhinorrhea, congestion, sore throat, or otalgia. CARDIOVASCULAR: Denies chest pain, palpitations, or edema. RESPIRATORY: Denies cough or dyspnea. GASTROINTESTINAL: Denies abdominal pain, nausea, vomiting, or diarrhea. GENITOURINARY: Denies dysuria or hematuria. SKIN: Reports of abrasions to the right fingers MUSCULOSKELETAL: Reports of lower right leg pain NEUROLOGIC: Denies headache, numbness, or weakness. All other systems reviewed are negative, except as documented in HPI. [facility] Past Medical History Medical History (Updated 05/14/20 @ 14:24 by TOSIN [place]) Gallbladder attack Hypertension Neuropathy Surgical History Surgical History (System 10/17/19 @ 09:09 by Mariia Caldwell) History of hernia repair Family History Family History (System 10/17/19 @ 09:09 by Mariia Caldwell) Mother Family history of malignant neoplasm of breast in first degree relative Sibling Patient's brother is in good health No family history of malignant neoplasm Father Family history of heart disease in male family member before age 55 Other Diabetes mellitus Family history of cardiovascular disease Family history of malignant neoplasm of breast Social History Social History (System 10/17/19 @ 09:09 by Mariia Caldwell) Alcohol intake: never Gender identity (if verbalized by the patient): Female Comments At the time of my signature, I reviewed and agree with the nursing past medical, surgical, social, and family history. There is no relevant family history pertinent to the patient complaint. Exam Narrative: Exam Narrative: GENERAL: This is a well-nourished, well-developed patient, in no apparent distress. HEAD: normocephalic, atraumatic. EYES: PERRL. Sclera clear/white. Vision is grossly intact. EARS: External ears normal NOSE: External nose normal with no obvious nasal discharge, nares without redness, no rhinorrhea. THROAT: Mucous membranes moist NECK: Neck supple SKIN: 0.5 cm linear superficial abrasions noted over the PIP joint of the third and fourth digits of the right hand. 4 cm ecc
== END 2020-05-14 14:31 | disposition home or self-care (01) ==
PROVIDERS: Emergency Provider Nurse Practitioner Family
DX: S80.11XA Contusion of right lower leg, initial encounter (principal); W10.9XXA Fall (on) (from) unspecified stairs and steps, initial encounter; I10 Essential (primary) hypertension; G62.9 Polyneuropathy, unspecified
CPT/HCPCS: 73590; 99213; G0463

== ENCOUNTER → 2020-05-15 18:10 | Outpatient (CLI) | payer OTHER, SELFPAY ==
--- NOTE | ~2020-05-15 | XR_ITS ---
XR humerus LT 05/15/2020 18:26 INDICATION: Left arm pain PROCEDURE: 2 views left humerus COMPARISON: No prior studies for comparison. FINDINGS: Fracture, dislocation or subluxation is not identified. The soft tissues appear within norm al limits. No foreign bodies are identified. IMPRESSION: 1: NO ACUTE BONE OR JOINT ABNORMALITY IDENTIFIED. Reviewed, dictated and finalized at location A. 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
== END ==
PROVIDERS: PCP Nurse Practitioner Family; Visit Provider Nurse Practitioner Family
DX: M79.602 Pain in left arm (principal)
CPT/HCPCS: 73060

== ENCOUNTER 2020-05-17 11:22 | Outpatient (CLI) | payer OTHER, SELFPAY ==
--- NOTE | ~2020-05-17 | US_ITS ---
US venous doppler LE RT DATE: 05/17/2020 11:55 INDICATION: Right calf pain following fall TECHNIQUE: Real-time and color flow imaging and Doppler analysis of the veins of the right lower extr emity COMPARISON: None FINDINGS: The right greater saphenous vein is patent. There is spontaneous and phasic flow and normal augmentation and color flow signal and normal compression of the deep veins of the right lower extre mity. IMPRESSION: No evidence of deep venous thrombosis of right lower extremity Reviewed, dictated and finalized at Location A. Reviewed, dictated and finalized at location A. 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
== END 2020-05-17 11:23 | disposition home or self-care (01) ==
PROVIDERS: PCP Nurse Practitioner Family; Visit Provider Nurse Practitioner Family
DX: M79.661 Pain in right lower leg (principal)
CPT/HCPCS: 93971

== ENCOUNTER 2020-07-04 14:25 | Outpatient (CLI) | payer OTHER, SELFPAY ==
--- NOTE | ~2020-07-04 | CT_ITS ---
EXAMINATION: CT brain wo con DATE: 07/04/2020 14:38 INDICATION: Right-sided headache for 2 weeks. Green's palsy. TECHNIQUE: Computed tomography (CT) of the head was performed without intravenous contrast. The mA wa s adjusted according to patient size. Iterative reconstruction technique was employed. Exam dose: 60 5.33 mGy-cm total exam DLP. COMPARISON: None FINDINGS: No intracranial mass lesion or hemorrhage or cerebrovascular accident. No midline shift or mass effect effect. Normal barajas-white matter differentiation. Normal ventricular size. No subdural or epidural hematoma. The orbital contents appear normal. The mastoid air cells and included paranasal sinuses are unremark able. No fracture or bone destruction of the cranial vault. IMPRESSION: Normal examination Reviewed, dictated and finalized at Location A. Reviewed, dictated and finalized at location B. IMPRESSION: Normal examination
== END 2020-07-04 14:26 | disposition home or self-care (01) ==
PROVIDERS: PCP Family Medicine; Visit Provider Family Medicine
DX: R51.9 Headache, unspecified (principal)
CPT/HCPCS: 70450

== ENCOUNTER 2020-08-01 15:04 | Outpatient (CLI) | payer OTHER, SELFPAY ==
--- NOTE | 2020-08-01 15:30 | ECG_ITS ---
Measurements Intervals [place] Rate: 64 P: 45 ND: 166 QRS: -37 QRSD: 105 T: 27 QT: 404 QTc: 418 Interpretive Statements SINUS RHYTHM POSSIBLE LEFT ATRIAL ENLARGEMENT LEFT AXIS DEVIATION POSSIBLE LEFT VENTRICULAR HYPERTROPHY MINIMAL Q WAVES- HIGH LATERAL LEADS BORDERLINE ECG Electronically Signed On 08-01-2020 15:24:02 CDT by Jerome Vasquez D.O.
[2020-08-01 15:40] LABS: Basophils Absolute Auto 0.1 K/mm3 (0.0-0.1); Basophils Percent Auto 0.7 % (0.2-1.2); Eosinophils Absolute Auto 0.1 K/mm3 (0-0.3); Eosinophils Percent Auto 1.9 % (0-4.4); Hematocrit 35.5 % (37.0-47.0); Hemoglobin 11.7 g/dL (12.0-15.0); Immature Granulocyte Absolute 0.03 K/mm3 (0.00-0.031); Immature Granulocyte Percent A 0.4 % (0-0.5); Lymphocytes Absolute Auto 1.66 K/mm3 (0.9-3.2); Lymphocytes Percent Auto 22.9 % (18.3-44.2); Mean Corpuscular Hemoglobin 30.4 pg (26-34); Mean Corpuscular Volume 92.2 fl (80-100); Mean Platelet Volume 9.5 fl (7.4-10.4); Monocytes Absolute Auto 0.5 K/mm3 (0.1-0.6); Monocytes Percent Auto 6.7 % (2.6-8.5); Neutrophils Absolute Auto 4.9 K/mm3 (1.3-6.7); Neutrophils Percent Auto 67.4 % (45.5-73.1); Platelet Count Result 294 k/mm3 (150-375); Red Blood Count 3.85 M/mm3 (4.2-5.4); Red Cell Distribution Width 13.3 % (11.5-14.5); White Blood Count 7.3 K/mm3 (4.5-10.0)
[2020-08-01 15:49] LABS: Anion Gap 7 mmol/L (8-16); Blood Urea Nitrogen 11 mg/dL (7-17); Calcium 9.5 mg/dL (8.4-10.2); Carbon Dioxide 28 mmol/L (22-30); Chloride 104 mmol/L (98-107); Estimated Glomerular Filt Rate > 60; Glucose 113 mg/dL (65-105); Potassium 3.7 mmol/L (3.4-5.0); Sodium 139 mmol/L (137-145)
== END 2020-08-01 15:05 | disposition home or self-care (01) ==
LOC: ANHSURGERY 15:09
PROVIDERS: Anesthesiology; PCP Family Medicine; Visit Provider Obstetrics & Gynecology
DX: N85.2 Hypertrophy of uterus (principal); Z79.899 Other long term (current) drug therapy; I10 Essential (primary) hypertension; Z01.818 Encounter for other preprocedural examination; R94.31 Abnormal electrocardiogram [ECG] [EKG]
CPT/HCPCS: 36415; 80048; 85025; 86850; 86900; 86901; 93005

== ENCOUNTER → 2020-08-06 15:32 | Outpatient (CLI) | payer OTHER, SELFPAY ==
--- NOTE | ~2020-08-06 | XR_ITS ---
EXAMINATION: XR chest 2V 08/06/2020 15:44 INDICATION: Dyspnea PROCEDURE: 2 view chest COMPARISON: Comparison to multiple prior studies sequentially, with oldest reviewed study dated 11/16/2009. FINDINGS: The lungs are clear. The cardiomediastinal silhouette is within normal limits. There are no pleural effusions. There is no pneumothorax suspected. IMPRESSION: 1: NO ACUTE CARDIOPULMONARY DISEASE. Reviewed, dictated and finalized at location B.
== END ==
PROVIDERS: PCP Nurse Practitioner Family; Visit Provider Nurse Practitioner Family
DX: R06.00 Dyspnea, unspecified (principal)
CPT/HCPCS: 71046

== ENCOUNTER 2020-08-13 12:29 | Outpatient (CLI) | payer OTHER, SELFPAY ==
--- NOTE | 2020-08-13 | ECHO_ITS ---
Patient Info Name: Joann Watters Age: 45 years : 1975 Gender: Female Ht: 65 in Wt: 290 lbs BSA: 2.53 m2 HR: 70 bpm BP: 150 / 79 mmHg Heart Rhythm: Sinus Rhythm Exam Date: 08/13/2020 12:53 PM Exam Location: [facility] Pulmonary Patient Status: Outpatient Admit Date: 08/13/2020 Staff Ordering Physician: Syed, Veto MAST Windows Desktop Engineer: Elda Avitia RDCS Attending Provider: Syed, Veto MAST Exam Type: CA echo doppler color flow Study Info Indications R94.31 - Abnormal electrocardiogram ECG EKG Complete two-dimensional, color flow and Doppler transthoracic echocardiogram is performed. Summary 1. Complete two-dimensional, color flow and Doppler transthoracic echocardiogram is performed. 2. Mild left ventricular enlargement and hypertrophy with good systolic function of all segments. Calculated ejection fraction 76%, visually greater than 70%. No focal wall motion abnormalities. Normal diastolic function. 3. Left atrial chamber dimension is mildly enlarged. 4. There is mild tricuspid valve regurgitation. 5. No pulmonary hypertension, estimated pulmonary arterial systolic pressure is 33 mmHg. 6. Normal sinus rhythm. Left Ventricle Left ventricular chamber dimension is mildly enlarged. Left ventricular systolic function is normal, estimated at >70%. There is mildly increased left ventricular wall thickness. Left ventricular septal wall motion is normal. The left ventricular diastolic function is normal. Right Ventricle Right ventricular chamber dimension is normal. Right ventricular systolic function is normal. Left Atria Left atrial chamber dimension is mildly enlarged. Right Atria Right atrial chamber dimension is normal. Aortic Valve The aortic valve is trileaflet. There is no aortic valve sclerosis. There is no aortic valve stenosis. There is no aortic valve regurgitation. Pulmonic Valve The pulmonic valve is normal. There is no pulmonic valve stenosis. There is no pulmonic regurgitation. Mitral Valve The mitral valve has normal leaflets. There is no mitral valve stenosis. There is no mitral valve regurgitation. Tricuspid Valve The tricuspid valve leaflets are normal. There is no significant tricuspid valve stenosis. There is mild tricuspid valve regurgitation. No pulmonary hypertension, estimated pulmonary arterial systolic pressure is 33 mmHg. Pericardium/Pleural The pericardium appears normal. There is no pericardial effusion. Inferior Vena Cava Normal inferior vena cava with >50% collapse upon inspiration consistent with Empty right atrial pressure, 10 mmHg. Aorta The aortic root size at the sinus of Valsalva is normal. The prox ascending aorta size is normal. Left Ventricular Outflow Tract Name Value Normal LVOT 2D LVOT Diameter 1.8 cm LVOT Doppler LVOT Peak Gradient 8 mmHg LVOT Mean Gradient 5 mmHg LVOT VTI 33 cm LVOT VTI/AV VTI Ratio 0.9 LVOT Stroke Volume 86 ml LVOT CO
== END 2020-08-13 12:30 | disposition home or self-care (01) ==
PROVIDERS: PCP Nurse Practitioner Family; Visit Provider Nurse Practitioner Family
DX: R94.31 Abnormal electrocardiogram [ECG] [EKG] (principal)
CPT/HCPCS: 93306

== ENCOUNTER → 2020-10-25 12:57 | Outpatient (CLI) | payer OTHER, SELFPAY ==
--- NOTE | ~2020-10-25 | XR_ITS ---
EXAMINATION: XR chest 2V DATE: 10/25/2020 13:12 INDICATION: Dyspnea. COVID-19 pneumonia. TECHNIQUE: Frontal and lateral views of the chest were obtained. COMPARISON: Chest 2 views 08/06/2020, CT abdomen and pelvis 04/26/2020 FINDINGS: The chest demonstrates clear lungs without pneumonia, pleural effusion, or pneumothorax. Th e heart size is normal. IMPRESSION: 1. No acute cardiopulmonary disease. Reviewed, dictated and finalized at location A.
== END ==
PROVIDERS: PCP Nurse Practitioner; Visit Provider Nurse Practitioner
DX: U07.1 COVID-19 (principal)
CPT/HCPCS: 71046

== ENCOUNTER 2020-11-20 17:16 | Outpatient (CLI) | payer OTHER, SELFPAY ==
[2020-11-20 17:47] LABS: Alanine Aminotransferase 26 U/L (4-35); Albumin Level 4.7 g/dL (3.5-5.1); Alkaline Phosphatase 79 U/L (38-126); Anion Gap 9 mmol/L (8-16); Aspartate Amino Transferase 26 U/L (14-36); Bilirubin,Total 0.7 mg/dL (0.2-1.3); Blood Urea Nitrogen 15 mg/dL (7-17); Calcium 9.8 mg/dL (8.4-10.2); Carbon Dioxide 24 mmol/L (22-30); Chloride 103 mmol/L (98-107); Estimated Glomerular Filt Rate > 60; Glucose 91 mg/dL (65-110); Magnesium 1.7 mg/dL (1.6-2.3); Potassium 3.9 mmol/L (3.4-5.0); Sodium 136 mmol/L (137-145)
== END 2020-11-20 17:17 | disposition home or self-care (01) ==
PROVIDERS: PCP Family Medicine; Visit Provider Nurse Practitioner Adult Health
DX: R25.2 Cramp and spasm (principal)
CPT/HCPCS: 36415; 80053; 83735

== ENCOUNTER 2020-11-26 07:58 | Outpatient (CLI) | payer OTHER, SELFPAY ==
[2020-11-26 08:26] LABS: Hematocrit 41.2 % (37.0-47.0); Hemoglobin 13.5 g/dL (12.0-15.0); Mean Corpuscular HGB Conc 32.8 g/dl (32-36); Mean Corpuscular Hemoglobin 29.9 pg (26-34); Mean Corpuscular Volume 91.2 fl (80-100); Mean Platelet Volume 9.4 fl (7.4-10.4); Platelet Count Result 316 k/mm3 (150-375); Red Blood Count 4.52 M/mm3 (4.2-5.4); Red Cell Distribution Width 14.5 % (11.5-14.5); White Blood Count 11.9 K/mm3 (4.5-10.0)
[2020-11-26 09:11] LABS: Hemoglobin A1C 5.3 % (<5.7)
[2020-11-26 09:21] LABS: Iron 103 ug/dL (37-170)
[2020-11-26 09:30] LABS: Percent Iron Saturation 26 % (20-50)
[2020-11-26 09:32] LABS: Magnesium 1.6 mg/dL (1.6-2.3)
[2020-11-26 12:34] LABS: Basophils Absolute Auto 0.1 K/mm3 (0.0-0.1); Basophils Percent Auto 0.6 % (0.2-1.2); Eosinophils Absolute Auto 0.1 K/mm3 (0-0.3); Eosinophils Percent Auto 0.7 % (0-4.4); Immature Granulocyte Absolute 0.08 K/mm3 (0.00-0.031); Immature Granulocyte Percent A 0.7 % (0-0.5); Lymphocytes Absolute Auto 1.94 K/mm3 (0.9-3.2); Lymphocytes Percent Auto 16.7 % (18.3-44.2); Monocytes Absolute Auto 0.7 K/mm3 (0.1-0.6); Monocytes Percent Auto 5.9 % (2.6-8.5); Neutrophils Absolute Auto 8.7 K/mm3 (1.3-6.7); Neutrophils Percent Auto 75.4 % (45.5-73.1)
[2020-11-26 15:23] LABS: Folic Acid > 20.0 ng/mL (2.76->20)
[2020-11-26 15:26] LABS: Anion Gap 5 mmol/L (8-16); Blood Urea Nitrogen 32 mg/dL (7-17); Calcium 8.7 mg/dL (8.4-10.2); Carbon Dioxide 27 mmol/L (22-30); Chloride 100 mmol/L (98-107); Estimated Glomerular Filt Rate 54; Glucose 118 mg/dL (65-110); Potassium 3.6 mmol/L (3.4-5.0); Sodium 132 mmol/L (137-145)
[2020-11-27 13:26] LABS: Ferritin 49 ng/mL (8-252)
[2020-11-29 13:15] LABS: Red Blood Cell Folate 965 ng/mL RBC (>280)
== END 2020-11-26 07:59 | disposition home or self-care (01) ==
PROVIDERS: PCP Family Medicine; Visit Provider Family Medicine
DX: G62.9 Polyneuropathy, unspecified (principal); D50.9 Iron deficiency anemia, unspecified
CPT/HCPCS: 36415; 80048; 82607; 82728; 82746; 82747; 83036; 83540; 83550; 83735; 84443; 85025; 85027

== ENCOUNTER 2020-12-04 12:45 | Emergency (ER) | payer OTHER, SELFPAY ==
[2020-12-04 12:53] VITALS: BP 122/66; PULSE 59; RESP 18; TEMP 36.5; O2SAT 100
--- NOTE | 2020-12-04 13:04 | ED.EAR ---
HPI - Ear Problem General Chief complaint: Ear Stated complaint: ear pain Time Seen by Provider: 12/04/20 13:10 Source: patient and RN notes reviewed Mode of arrival: ambulatory Limitations: no limitations History of Present Illness HPI Narrative: 45-year-old female presents with concern for bilateral ear pain, worse on the right. She reports she was vaccinated for Covid several weeks ago with the first vaccine, has not gotten the second vaccine. She denies rhinorrhea, nasal congestion, sore throat, cough, shortness of breath, bodies, chills, fever, headache. Reports she was in her doctor's office 2 weeks ago and referred to ENT for impacted cerumen in the right ear. Reports since then she has been using peroxide twice weekly in that ear. Reports right ear pain with movement of the ear. She also reports she has 2 impacted wisdom teeth for which she has an appointment for extraction in February. MD Complaint: ear pain Related Data Home Medications Medication Instructions Recorded Confirmed ferrous sulfate 325 mg PO TID 03/11/20 12/04/20 furosemide [Lasix] 40 mg PO BID 03/11/20 12/04/20 hydroxyzine HCl [Atarax] 25 mg PO TID 03/11/20 12/04/20 potassium chloride [Klor-Con M20] 20 meq PO DAILY 03/11/20 12/04/20 lisinopril 2.5 mg PO DAILY 05/14/20 12/04/20 L. acidophilus-L. rhamnosus 1 cap PO DAILY 07/31/20 12/04/20 [Probiotic] multivitamin 1 tablet PO DAILY 07/31/20 12/04/20 Allergies Allergy/AdvReac Type Severity Reaction Status Date / Time nitrofurantoin Allergy Mild Rash Verified 12/04/20 13:01 [From Macrobid] Sulfa (Sulfonamide Allergy Unknown RASH Verified 12/04/20 13:01 Antibiotics) PROCHLORPERAZINE EDISYLATE Allergy Mild ANXIOUS Uncoded 12/04/20 13:01 Review of Systems Review of Systems: CONSTITUTIONAL: Denies malaise, chills, sweats, or fever. EYES: Denies visual changes, redness, or discharge. ENT: Denies rhinorrhea, congestion, sinus pain, or sore throat. Reports bilateral ear pain, worse on the right. Reports bilateral dental pain CARDIOVASCULAR: Denies chest pain, palpitations, or edema. RESPIRATORY: Denies cough or dyspnea. SKIN: Denies rash or itching. MUSCULOSKELETAL: Denies myalgia. NEUROLOGIC: Denies headache. All systems reviewed & are unremarkable except as noted in HPI and below PMFSH Past Medical History Medical History Gallbladder attack Hypertension Neuropathy Surgical History Surgical History History of hernia repair Family History Family History Mother Family history of malignant neoplasm of breast in first degree relative Sibling Patient's brother is in good health No family history of malignant neoplasm Father Family history of heart disease in male family member before age 55 Other Diabetes mellitus Family history of cardiovascular disease Family history of malignant neoplasm of breast Social History Social History Smoking status: Never smoker Alcohol intake: never Substance use: never Substance use type: does not use Gender identity (if verbalized by the patient): Female Spiritual care concerns: No Comments At time of signature, agree with nursing past medical, surgical, social and family history. There is no relevant family history pertinent to the presenting complaint Exam Narrative: GENERAL: Well-appearing, well-nourished, and in no acute distress. HEAD: Normocephalic, atraumatic. EYES: PERRLA, conjunctivae clear, and EOMI. No nystagmus. ENT: Mucous membranes moist. Left TM pearly barajas with sharp light reflex right TM not visible due to cerumen impaction; right tragal tenderness. Oropharynx without erythema or lesions. Tonsils not enlarged and without exudate. NECK: Supple. CHEST: No respiratory distress.Speaks in f
--- NOTE | 2020-12-04 13:27 | PC.NURSE ---
PT LEFT SIDE LYING ON EXAM TABLE, 1 CAPFUL 3% HYDROGEN PEROXIDE INSTILLED IN RIGHT EAR CANAL.
== END 2020-12-04 13:40 | disposition home or self-care (01) ==
PROVIDERS: Emergency Provider Nurse Practitioner; PCP Family Medicine
DX: H61.21 Impacted cerumen, right ear (principal); H60.501 Unspecified acute noninfective otitis externa, right ear; I10 Essential (primary) hypertension; G62.9 Polyneuropathy, unspecified
CPT/HCPCS: 69210; 99213; G0463

== ENCOUNTER 2020-12-05 08:32 | Outpatient (CLI) | payer OTHER, SELFPAY ==
--- NOTE | ~2020-12-05 | US_ITS ---
EXAMINATION: US arterial ankle brachial ind DATE: 12/05/2020 09:16 INDICATION: Bilateral lower limb pain TECHNIQUE: Segmental pressures and plethysmographic and Doppler waveforms of the brachial and lower e xtremity arteries were obtained. COMPARISON: None. FINDINGS: Right and left brachial artery pressures of 121 mm Hg and 120 mm Hg, respectively, are concordant (no rmal difference <= 30 mmHg). The right ankle-brachial index (DELTA) is 1.32 (normal >= 0.9-1.0). The right great toe-brachial index (TBI) is 0.98 (normal >= 0.65). Arterial Doppler waveforms are triphasic with brisk systolic upstroke s at both the right posterior tibial and dorsalis pedis arteries. The left DELTA is 0.97. The left TBI is 0.94. Arterial Doppler waveforms are triphasic at the left post erior tibial and biphasic at the left dorsalis pedis arteries, both with brisk systolic upstrokes. IMPRESSION: 1. No significant arterial occlusive disease to either lower limb with normal bilateral ABIs and TBIs . Reviewed, dictated and finalized at location B. IMPRESSION: 1. No significant arterial occlusive disease to either lower limb with normal b ilateral ABIs and TBIs.
--- NOTE | 2020-12-05 16:09 | WPDSIXMINUTE ---
Six Minute Walk Procedure Procedure Performed Pulmonary Stress Test (6 min walk) Six Minute Walk This is a 6 minute walk test. The test was performed and interpreted in accordance with the 2014 ERS/ATS task force guidelines. Findings: The patient's resting room air oxygen saturation measured by pulse oximetry was 98% and her heart rate was 62 bpm. Patient ambulated for 396 meters and oxygen saturation remained 97 to 98%. Heart rate at the end of the study was 96 bpm. The patient did not qualify for supplemental oxygen at rest or with ambulation. There are no prior studies for comparison.
--- NOTE | 2020-12-05 16:10 | WPDPFTINT ---
PFT Procedure Performed PFT Procedure Performed Spirometry with Pre/Post Bronchodilator Plethysmography (Lung Vol) Diffusing Cap (DLCO) Flow Vol Loop PFT Interpretation This is a pulmonary function test with pre and post-bronchodilator spirometry, plethysmography and diffusing capacity. The test was performed and results interpreted in accordance with the 2019 and 2005 ATS/ERS Task Force guidelines respectively using the Global Lung Function Initiative-2012 reference equations. Patient demonstrated good effort and cooperation. Reproducibility criteria were met. The quality of the pre bronchodilator spirometry maneuver was Grade A and post bronchodilator spirometry maneuver was Grade B. Findings: Spirometry: The contour the inspiratory and expiratory flow tracing are normal. The pre bronchodilator FVC is 3.67 L, 98% predicted. The pre bronchodilator FEV1 is 2.83 L, 93% predicted. The FEV1: FVC ratio 77%. The post bronchodilator FVC is 3.59 L, representing a 2% decrease. The post bronchodilator FEV1 is 2.71 L, representing a 5% decrease. Plethysmography: The total lung capacity is 5.36 L, 103% predicted. The functional residual capacity is 2.56 L, 89% predicted. The residual volume is 1.69 L, 99% predicted. Diffusing capacity: The absolute diffusion capacity is 25.9, 108% predicted. The diffusing capacity corrected for alveolar volume is 5.45, 117% predicted. Impression: The spirometry is normal without evidence of an obstructive abnormality. There is no significant improvement after inhaling a single dose of albuterol. The lung volumes are normal. The diffusing capacity is normal. There are no prior studies for comparison
== END 2020-12-05 08:33 | disposition home or self-care (01) ==
PROVIDERS: PCP Family Medicine; Referring Provider Nurse Practitioner; Visit Provider Family Medicine
DX: M79.661 Pain in right lower leg (principal); R60.9 Edema, unspecified
CPT/HCPCS: 93922; 94060; 94618; 94726; 94729

== ENCOUNTER 2020-12-07 10:20 | Emergency (ER) | payer OTHER, SELFPAY ==
--- NOTE | ~2020-12-07 | XR_ITS ---
EXAMINATION: XR knee LT min 4V DATE: 12/07/2020 11:11 INDICATION: Left knee pain and bruising post trauma TECHNIQUE: Anteroposterior, 2 oblique and crosstable lateral views of the left knee were obtained COMPARISON: None. FINDINGS: Alignment is normal. No fracture. Osteoarthritis with small marginal osteophytes and at least mild j oint space narrowing the medial compartment which could be underestimated on nonweightbearing imaging . No joint effusion/layering lipohemarthrosis. Soft tissues are unremarkable. IMPRESSION: 1. No left knee joint effusion or acute osseous abnormality. Reviewed, dictated and finalized at location A.
[2020-12-07 10:44] VITALS: BP 115/75; PULSE 62; RESP 16; TEMP 37.2; O2SAT 100
--- NOTE | 2020-12-07 10:53 | ED.LOWEXIN ---
HPI - Extremity Injury (Lower) General Chief Complaint: Extremity Injury, Lower Stated Complaint: L LEG INJURY Time Seen by Provider: 12/07/20 10:53 Source: patient and RN notes reviewed Mode of arrival: ambulatory Limitations: no limitations History of Present Illness HPI Narrative: 45-year-old female presents to the [facility] with pain and swelling to the left knee. Patient reports that she wanted to get into the bath last night slipped and left knee hit the side of the bathtub. Denies hip pain or ankle pain. Denies back pain. Did not hit head. No loss of consciousness. Walking with a mild limp favoring the left side. Related Data Home Medications Medication Instructions Recorded Confirmed ferrous sulfate 325 mg PO TID 03/11/20 12/07/20 furosemide [Lasix] 40 mg PO BID 03/11/20 12/07/20 hydroxyzine HCl [Atarax] 25 mg PO TID 03/11/20 12/07/20 potassium chloride [Klor-Con M20] 20 meq PO DAILY 03/11/20 12/07/20 lisinopril 2.5 mg PO DAILY 05/14/20 12/07/20 L. acidophilus-L. rhamnosus 1 cap PO DAILY 07/31/20 12/07/20 [Probiotic] multivitamin 1 tablet PO DAILY 07/31/20 12/07/20 Allergies Allergy/AdvReac Type Severity Reaction Status Date / Time nitrofurantoin Allergy Mild Rash Verified 12/07/20 10:44 [From Macrobid] Sulfa (Sulfonamide Allergy Unknown RASH Verified 12/07/20 10:44 Antibiotics) PROCHLORPERAZINE EDISYLATE Allergy Mild ANXIOUS Uncoded 12/07/20 10:44 Review of Systems Review of Systems: All systems reviewed & are unremarkable except as noted in HPI and below Constitutional: Constitutional: Reports no additional constitutional complaints Eyes: Eyes: Reports no additional eye complaints ENT: Reports system reviewed and no additional complaints, except as documented Cardiovascular: Cardiovascular: Reports no additional cardiovascular complaints Respiratory: Respiratory: Reports no additional respiratory complaints Musculoskeletal: Musculoskeletal: Reports as per HPI, Reports arthralgias (Left knee) and Reports joint swelling (Left knee) Integumentary/Breasts: Skin/Breast: Reports system reviewed and no additional complaints, except as docu Neurologic: Reports system reviewed and no additional complaints, except as documented Psychiatric: Psychiatric: Reports no additional psychiatric complaints Allergic/Immunologic: Allergic/Immunologic: Reports no additional allergic/immunologic complaints [facility] Past Medical History Medical History Gallbladder attack Hypertension Neuropathy Surgical History Surgical History History of hernia repair Family History Family History Mother Family history of malignant neoplasm of breast in first degree relative Sibling Patient's brother is in good health No family history of malignant neoplasm Father Family history of heart disease in male family member before age 55 Other Diabetes mellitus Family history of cardiovascular disease Family history of malignant neoplasm of breast Social History Social History Smoking status: Never smoker Alcohol intake: never Substance use: never Substance use type: does not use Gender identity (if verbalized by the patient): Female Spiritual care concerns: No Comments At the time of my signature, I reviewed and agree with the nursing past medical, surgical, social, and family history. There is no relevant family history pertinent to the patient complaint. Exam Const: General: healthy appearing, no acute distress and alert Nutritional Appearance: well nourished and obese Orientation/consciousness: patient oriented x3 Limitations: no limitations HENMT: Head: normal to inspection Neck: Neck: normal visual inspection, no lymphadenopathy and no meningeal signs Chest: Chest palpation & inspection
== END 2020-12-07 11:50 | disposition home or self-care (01) ==
PROVIDERS: Emergency Provider Nurse Practitioner; PCP Family Medicine
DX: S80.02XA Contusion of left knee, initial encounter (principal); S83.8X2A Sprain of other specified parts of left knee, initial encounter; W01.198A Fall on same level from slipping, tripping and stumbling with subsequent striking against other object, initial encounter; I10 Essential (primary) hypertension; G62.9 Polyneuropathy, unspecified
CPT/HCPCS: 73564; 99213; G0463

== ENCOUNTER 2020-12-21 13:37 | Emergency (ER) | payer BC, SELFPAY ==
[2020-12-21 13:46] VITALS: BP 138/83; PULSE 63; RESP 16; TEMP 36.9; O2SAT 100
--- NOTE | 2020-12-21 14:40 | ED.EAR ---
HPI - Ear Problem General Chief complaint: Ear Stated complaint: earache/sinus congestion/pain/sore throat Source: patient and RN notes reviewed Limitations: no limitations History of Present Illness HPI Narrative: The overweight, vaccinated patient, a nondrinker/non-smoker on several meds, presents with half week history of fever to 101, ear fullness, postnasal drip and scratchy throat. Symptoms are mild, unrelieved with OTC preparations like a Trina. No cough, loss of taste/smell, CP, vomiting/diarrhea, ear discharge, S OB, sneezing/wheezing Related Data Home Medications Medication Instructions Recorded Confirmed ferrous sulfate 325 mg PO TID 03/11/20 12/21/20 furosemide [Lasix] 40 mg PO BID 03/11/20 12/21/20 hydroxyzine HCl [Atarax] 25 mg PO TID PRN 03/11/20 12/21/20 potassium chloride [Klor-Con M20] 20 meq PO DAILY 03/11/20 12/21/20 L. acidophilus-L. rhamnosus 1 cap PO DAILY 07/31/20 12/21/20 [Probiotic] multivitamin 1 tablet PO DAILY 07/31/20 12/21/20 albuterol sulfate 2 puff INHALATION PRN PRN 12/21/20 12/21/20 docusate sodium [DOK] 1 mg PO BID 12/21/20 12/21/20 gabapentin 600 mg PO HS 12/21/20 12/21/20 hydrocodone-acetaminophen 1 tablet PO Q6H PRN 12/21/20 12/21/20 lisinopril 10 mg PO DAILY 12/21/20 12/21/20 phentermine 37.5 mg PO DAILY 12/21/20 12/21/20 polyethylene glycol 3350 17 g PO PRN PRN 12/21/20 12/21/20 Allergies Allergy/AdvReac Type Severity Reaction Status Date / Time nitrofurantoin Allergy Mild Rash Verified 12/21/20 13:46 [From Macrobid] Sulfa (Sulfonamide Allergy Unknown RASH Verified 12/21/20 13:46 Antibiotics) PROCHLORPERAZINE EDISYLATE Allergy Mild ANXIOUS Uncoded 12/21/20 13:46 Review of Systems Review of Systems: General/Constitutional: No weight loss,fever Eyes: N0: Redness,discharge Ears/Nose/Throat: No: Epistaxis,ear discharge Respiratory: Denies: Hemoptysis Gastrointestinal: No Vomiting, Bleeding-rectal Skin: No Lumps, eruption Neurologic: No Focal Weakness,Sz Hematologic: Denies: Petechiae/Purpura Psychiatric: No: Suicida ideationl All Other Systems: Reviewed and Negative PMF Past Medical History Medical History Gallbladder attack Hypertension Neuropathy Surgical History Surgical History History of hernia repair Family History Family History Mother Family history of malignant neoplasm of breast in first degree relative Sibling Patient's brother is in good health No family history of malignant neoplasm Father Family history of heart disease in male family member before age 55 Other Diabetes mellitus Family history of cardiovascular disease Family history of malignant neoplasm of breast Social History Social History Smoking status: Never smoker Alcohol intake: never Substance use: never Substance use type: does not use Gender identity (if verbalized by the patient): Female Spiritual care concerns: No Comments At time of signature, agree with nursing past medical, surgical, social and family history. There is no relevant family history pertinent to the presenting complaint Exam Narrative: General Appearance: Well appearing, Well nourished/overweight EYE: PERRLA, Conjunctiva clear Ears: Auditory canal normal, TM normal Nose: Rhinorrhea, Mucousal erythema Mouth/Throat: MM moist, Uvula midline, Pharyngeal erythema Neck: Supple, No adenopathy Respiratory: No respiratory distress, Breath sounds equal, Clear to auscultation Cardiovascular: RRR, No JVD Musculoskeletal: Non tender, Normal strength Skin: Warm, Dry Neurological: A&O x3, CN II-XII intact Psychiatric: Normal mood, Normal affect Course Vital Signs Vital signs: Vital Signs Temperature 98.5 F 12/21/20 13:46 Pulse Rate 63 12/21/20 13:46 Respiratory Rate
== END 2020-12-21 15:05 | disposition home or self-care (01) ==
PROVIDERS: Emergency Provider Emergency Medicine; PCP Family Medicine
DX: H92.03 Otalgia, bilateral (principal); I10 Essential (primary) hypertension; G62.9 Polyneuropathy, unspecified
CPT/HCPCS: 99213; G0463

== ENCOUNTER 2020-12-30 11:21 | Outpatient (CLI) | payer BC, SELFPAY ==
--- NOTE | ~2020-12-30 | US_ITS ---
EXAMINATION:US venous doppler LE BI INDICATION:Bilateral leg pain TECHNIQUE: Multiple grayscale, color flow and Doppler images of the right and left lower extremity de ep venous systems were obtained and reviewed. COMPARISON:No prior studies for comparison. FINDINGS: The common femoral, superficial femoral and popliteal veins demonstrate normal respiratory variation, augmentation and compressibility. Color flow is also seen within the posterior tibial, pe roneal, greater saphenous and profunda veins. IMPRESSION: 1: No lower extremity deep venous thrombosis. Reviewed, dictated and finalized at location A.
== END 2020-12-30 11:22 | disposition home or self-care (01) ==
LOC: ANHIMG 11:27
PROVIDERS: PCP Family Medicine; Visit Provider Family Medicine
DX: M79.661 Pain in right lower leg (principal); R60.9 Edema, unspecified
CPT/HCPCS: 93970

== ENCOUNTER 2021-01-09 12:54 | Emergency (ER) | payer BC, SELFPAY ==
--- NOTE | ~2021-01-09 | XR_ITS ---
EXAMINATION: XR tibia fibula LT 2V EXAM DATE: 01/09/2021 13:20 INDICATION: pain left proximal tib/fib s/p injury today . Initial encounter. TECHNIQUE: Left tibia/fibula frontal and lateral projections obtained and reviewed. Correlation is jimmy burton to left knee exam 12/07/2020. FINDINGS: Left tibial and fibular shafts unremarkable. Sequela from old lateral malleolar avulsion injury. There are no acute fractures or dislocations identified. There is no subcutaneous gas. The soft tissue is unremarkable. There are no radiopaque foreign bodies. IMPRESSION: 1. XR tibia fibula LT 2V exam without acute osseous findings. Reviewed, dictated and finalized at location A.
[2021-01-09 13:03] VITALS: BP 129/63; PULSE 68; RESP 16; TEMP 37.2; O2SAT 100
--- NOTE | 2021-01-09 13:03 | ED.LOWEXIN ---
HPI - Extremity Injury (Lower) General Chief Complaint: Extremity Injury, Lower Stated Complaint: left leg pain Time Seen by Provider: 01/09/21 13:03 Source: patient and RN notes reviewed Mode of arrival: ambulatory Limitations: no limitations History of Present Illness HPI Narrative: 45-year-old female presents to the [facility] with left lateral leg pain. Patient reports pain to the lateral aspect generalized lower leg. Bruise no. States just prior to arrival that she slipped and fell landing on her leg. Has full range of motion. Normal gait. No numbness and tingling. Related Data Home Medications Medication Instructions Recorded Confirmed ferrous sulfate 325 mg PO TID 03/11/20 12/21/20 furosemide [Lasix] 40 mg PO BID 03/11/20 12/21/20 hydroxyzine HCl [Atarax] 25 mg PO TID PRN 03/11/20 12/21/20 potassium chloride [Klor-Con M20] 20 meq PO DAILY 03/11/20 12/21/20 L. acidophilus-L. rhamnosus 1 cap PO DAILY 07/31/20 12/21/20 [Probiotic] multivitamin 1 tablet PO DAILY 07/31/20 12/21/20 albuterol sulfate 2 puff INHALATION PRN PRN 12/21/20 12/21/20 docusate sodium [DOK] 1 mg PO BID 12/21/20 12/21/20 gabapentin 600 mg PO HS 12/21/20 12/21/20 hydrocodone-acetaminophen 1 tablet PO Q6H PRN 12/21/20 12/21/20 lisinopril 10 mg PO DAILY 12/21/20 12/21/20 phentermine 37.5 mg PO DAILY 12/21/20 12/21/20 polyethylene glycol 3350 17 g PO PRN PRN 12/21/20 12/21/20 acetaminophen-codeine tablet 01/09/21 ibuprofen 01/09/21 Allergies Allergy/AdvReac Type Severity Reaction Status Date / Time nitrofurantoin Allergy Mild Rash Verified 12/21/20 13:46 [From Macrobid] Sulfa (Sulfonamide Allergy Unknown RASH Verified 12/21/20 13:46 Antibiotics) PROCHLORPERAZINE EDISYLATE Allergy Mild ANXIOUS Uncoded 12/21/20 13:46 Review of Systems Review of Systems: All systems reviewed & are unremarkable except as noted in HPI and below Constitutional: Constitutional: Reports no additional constitutional complaints, Denies chills and Denies fever(s) Eyes: Eyes: Reports no additional eye complaints ENT: Reports system reviewed and no additional complaints, except as documented Cardiovascular: Cardiovascular: Reports no additional cardiovascular complaints Respiratory: Respiratory: Reports no additional respiratory complaints Musculoskeletal: Musculoskeletal: Reports as per HPI Comments: Lateral left lower leg bruising and tenderness Integumentary/Breasts: Skin/Breast: Reports as per HPI Neurologic: Reports system reviewed and no additional complaints, except as documented Psychiatric: Psychiatric: Reports no additional psychiatric complaints Allergic/Immunologic: Allergic/Immunologic: Reports no additional allergic/immunologic complaints [facility] Past Medical History Medical History Gallbladder attack Hypertension Neuropathy Surgical History Surgical History History of hernia repair Family History Family History Mother Family history of malignant neoplasm of breast in first degree relative Sibling Patient's brother is in good health No family history of malignant neoplasm Father Family history of heart disease in male family member before age 55 Other Diabetes mellitus Family history of cardiovascular disease Family history of malignant neoplasm of breast Social History Social History Smoking status: Never smoker Alcohol intake: never Substance use: never Substance use type: does not use Gender identity (if verbalized by the patient): Female Spiritual care concerns: No Comments At the time of my signature, I reviewed and agree with the nursing past medical, surgical, social, and family history. There is no relevant family history pertinent to the patient complaint. Exam Const: General: healthy appearin
== END 2021-01-09 13:40 | disposition home or self-care (01) ==
PROVIDERS: Emergency Provider Nurse Practitioner; PCP Family Medicine
DX: S80.12XA Contusion of left lower leg, initial encounter (principal); W01.0XXA Fall on same level from slipping, tripping and stumbling without subsequent striking against object, initial encounter; I10 Essential (primary) hypertension; Z86.16 Personal history of COVID-19; M19.90 Unspecified osteoarthritis, unspecified site; G62.9 Polyneuropathy, unspecified
CPT/HCPCS: 73590; 99213; G0463

== ENCOUNTER 2021-05-23 10:13 | Outpatient (CLI) | payer OTHER, SELFPAY ==
--- NOTE | ~2021-05-23 | CT_ITS ---
EXAMINATION: CT abdomen pelvis wo con EXAM DATE: 05/23/2021 10:34 INDICATION: Abdominal pain. TECHNIQUE: Spiral CT of the abdomen and pelvis was performed without contrast. Axial, coronal and s agittal images of the abdomen and pelvis were reviewed. The dose-length product (DLP) for this exami nation was 1414.98 mGy-cm. The exposure was tailored according to patient size (auto mA exposure con trol), and iterative reconstruction (ASIR) was used as additional dose reduction technique. Compariso n is made to prior examination from 04/26/2020. FINDINGS: The liver, spleen, adrenal glands and pancreas are unremarkable. There are cholecystectomy clips. There is no nephrolithiasis or hydronephrosis. The uterus is unremarkable. The bladder i s unremarkable. There is no retroperitoneal or pelvic lymphadenopathy. The appendix is normal. There is moderate scattered colonic diverticulosis. There is no adjacent inf lammatory change to suggest diverticulitis. The stomach and small bowel are unremarkable. There is e xpected amount of colonic stool. No free intraperitoneal gas. The heart is normal in size. There are no pericardial or pleural effusions. The lung bases are unremarkable. There are no osteoblasti c or osteolytic lesions identified. IMPRESSION: 1. Moderate scattered colonic diverticulosis without adjacent inflammation. Reviewed, dictated and finalized at location B. 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
== END 2021-05-23 10:14 | disposition home or self-care (01) ==
LOC: ANHIMG 10:18
PROVIDERS: PCP Family Medicine; Visit Provider Family Medicine
DX: R10.9 Unspecified abdominal pain (principal); K57.30 Diverticulosis of large intestine without perforation or abscess without bleeding
CPT/HCPCS: 74176

== ENCOUNTER 2021-06-17 10:39 | Outpatient (CLI) | payer OTHER, SELFPAY ==
--- NOTE | ~2021-06-17 | US_ITS ---
EXAMINATION: US venous doppler [facility] DATE: 06/17/2021 11:01 INDICATION: Left lower limb edema. TECHNIQUE: Grayscale ultrasound images without and with compression and Doppler ultrasound images of the left lower extremity veins were obtained. COMPARISON: Ultrasound 12/30/2020 FINDINGS: The visualized portions of left common femoral vein, profunda (deep) femoral vein, femoral vein, popl iteal vein, peroneal veins, posterior tibial veins, and greater saphenous vein outflow are patent. IMPRESSION: 1. No deep venous thrombosis. Reviewed, dictated and finalized at location A. 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
== END 2021-06-17 10:40 | disposition home or self-care (01) ==
LOC: ANHIMG 10:40
PROVIDERS: PCP Family Medicine; Visit Provider Family Medicine
DX: R60.0 Localized edema (principal)
CPT/HCPCS: 93971

== ENCOUNTER 2021-06-19 03:45 | Emergency (ER) | payer OTHER, SELFPAY ==
--- NOTE | ~2021-06-19 | CT_ITS ---
EXAMINATION: CT abdomen pelvis w con DATE: 06/19/2021 05:26 INDICATION: Low abdominal pain. Nausea. TECHNIQUE: Computed tomography (CT) of the abdomen and pelvis was performed with 100 mL Omnipaque 350 intravenous contrast. Automated exposure control and iterative reconstruction technique were employe d. The dose-length product was 1638.34 mGy-cm. COMPARISON: CT abdomen and pelvis 05/23/2021 FINDINGS: The visualized portions of the lung bases are clear without pneumonia or pleural effusion. The heart size is normal. No pericardial effusion. There is diffuse hepatic steatosis. The spleen, pa ncreas, adrenal glands, and kidneys are normal. There are changes of cholecystectomy. There is a 4.9 cm cyst in left ovary. There is diverticulosis of the colon without evidence of diverticulitis. There are no dilated loops of bowel. The appendix is normal. There are no pathologically enlarged lymph no shyam. There is no free intraperitoneal fluid. There is mild thoracolumbar spondylosis. IMPRESSION: 1. New 4.9 cm cyst in left ovary, likely a follicular cyst. Reviewed, dictated and finalized at location A. [employer]OP[employer]ICER
[2021-06-19 03:52] VITALS: PULSE 79; RESP 18; O2SAT 97
--- NOTE | 2021-06-19 03:57 | ECG_ITS ---
Measurements Intervals Prince Rate: 78 P: 52 NH: 153 QRS: -42 QRSD: 98 T: 46 QT: 377 QTc: 431 Interpretive Statements SINUS RHYTHM LEFT AXIS DEVIATION [QRS AXIS < -30] PATTERN CONSISTENT WITH PULMONARY DISEASE MODERATE VOLTAGE CRITERIA FOR LVH, CONSIDER NORMAL VARIANT [MEETS CRITERIA IN ONE OF: R(aVL), S(V1), R(V5), R(V5/V6)+S(V1)] COMPARED TO ECG 08/01/2020 15:22:52 NO SIGNIFICANT CHANGES Electronically Signed On 06-19-2021 14:06:32 HAIR DRYER by Nithin Duarte M.D.
[2021-06-19 04:02] VITALS: BP 159/81; PULSE 80; RESP 14; TEMP 36.7; O2SAT 98
--- NOTE | 2021-06-19 04:11 | ED.ABDPAIN ---
HPI - Abdominal Pain General Chief Complaint: Abdominal Pain Stated Complaint: abd pain, nausea Time Seen by Provider: 06/19/21 03:56 Source: patient and RN notes reviewed Mode of arrival: ambulatory Limitations: no limitations History of Present Illness HPI narrative: This is a 46 year old female with history of diverticulitis and uterine fibroids who presents for evaluation of lower abdominal pain. Patient states she developed lower abdominal pain. She describes pain as severe cramp. It has been constant and gradually worsening. She has nausea and vomiting. She also reports having episode of diarrhea because she started antibiotics on 06/17/21. Patient states she was placed on antibiotics 1 month ago for diverticulitis and she was started on antibiotics 2 days for toe infection. Her pain feels slightly different from her diverticulits. She reports having CT scan 1 month ago her. On review of CT, she had diverticulosis but no diverticulitis per CT. She is currently on her menstrual cycle, and she is getting hysterectomy in 1 week . Related Data Home Medications Medication Instructions Recorded Confirmed ferrous sulfate 325 mg PO TID 03/11/20 06/17/21 furosemide [Lasix] 40 mg PO BID 03/11/20 06/17/21 potassium chloride [Klor-Con M20] 20 meq PO DAILY 03/11/20 06/17/21 L. acidophilus-L. rhamnosus 1 cap PO DAILY 07/31/20 06/17/21 [Probiotic] multivitamin 1 tablet PO DAILY 07/31/20 06/17/21 albuterol sulfate 2 puff INHALATION PRN PRN 12/21/20 06/17/21 gabapentin 600 mg PO HS PRN 12/21/20 06/17/21 lisinopril 10 mg PO DAILY 12/21/20 06/17/21 polyethylene glycol 3350 17 g PO PRN PRN 12/21/20 06/17/21 metformin 100 mg PO QPM 06/17/21 06/17/21 Allergies Allergy/AdvReac Type Severity Reaction Status Date / Time nitrofurantoin Allergy Mild Rash Verified 06/17/21 15:07 [From Macrobid] prochlorperazine Allergy Mild Rash Verified 06/19/21 03:58 [From Compazine] Sulfa (Sulfonamide Allergy Unknown RASH Verified 06/17/21 15:07 Antibiotics) PROCHLORPERAZINE EDISYLATE Allergy Mild ANXIOUS Uncoded 06/17/21 15:07 Review of Systems Review of Systems: All systems reviewed & are unremarkable except as noted in HPI and below Constitutional: Constitutional: Denies chills and Denies fever(s) ENT: Denies sore throat Cardiovascular: Cardiovascular: Denies chest pain Respiratory: Respiratory: Denies cough and Denies dyspnea Gastrointestinal: Gastrointestinal: Reports abdominal pain, Reports diarrhea, Reports nausea and Reports vomiting Genitourinary: Genitourinary: Denies hematuria, Denies dysuria and Denies flank pain PMFSH Past Medical History Medical History Gallbladder attack Hypertension Neuropathy Surgical History Surgical History History of hernia repair Family History Family History Mother Family history of malignant neoplasm of breast in first degree relative Sibling Patient's brother is in good health No family history of malignant neoplasm Father Family history of heart disease in male family member before age 55 Other Diabetes mellitus Family history of cardiovascular disease Family history of malignant neoplasm of breast Social History Social History Smoking status: Never smoker Alcohol intake: never Substance use: never Substance use type: does not use Gender identity (if verbalized by the patient): Female Spiritual care concerns: No Exam Const: General: no acute distress and alert Orientation/consciousness: patient oriented x3 Eyes: EOM: EOMs intact bilaterally Resp: Effort & Inspection: normal respiratory effort and no retractions Auscultation: clear to auscultation bilaterally Cardio: Rate: regular rate Rhythm: regular rhythm Heart sounds: no murmur
[2021-06-19] MEDS: ONDANSETRON INJ 4 MG/2 ML VIAL IV PUSH (04:18)
[2021-06-19] MEDS: MORPHINE SULFATE (*CRX) 4 MG/ML INJ IV PUSH (04:18)
[2021-06-19 04:29] LABS: Basophils Percent Auto 0.3 % (0.2-1.2); Eosinophils Absolute Auto 0.1 K/mm3 (0-0.3); Eosinophils Percent Auto 0.8 % (0-4.4); Hematocrit 37.5 % (37.0-47.0); Hemoglobin 12.8 g/dL (12.0-15.0); Immature Granulocyte Absolute 0.04 K/mm3 (0.00-0.031); Immature Granulocyte Percent A 0.3 % (0-0.5); Lymphocytes Absolute Auto 0.99 K/mm3 (0.9-3.2); Lymphocytes Percent Auto 8.5 % (18.3-44.2); Mean Corpuscular HGB Conc 34.1 g/dl (32-36); Mean Corpuscular Hemoglobin 30.5 pg (26-34); Mean Corpuscular Volume 89.3 fl (80-100); Mean Platelet Volume 9.3 fl (7.4-10.4); Monocytes Absolute Auto 0.6 K/mm3 (0.1-0.6); Neutrophils Percent Auto 85.1 % (45.5-73.1); Platelet Count Result 234 k/mm3 (150-375); Red Cell Distribution Width 13.2 % (11.5-14.5); White Blood Count 11.7 K/mm3 (4.5-10.0)
[2021-06-19 04:36] LABS: Alanine Aminotransferase 27 U/L (4-35); Albumin Level 4.5 g/dL (3.5-5.1); Alkaline Phosphatase 84 U/L (38-126); Anion Gap 9 mmol/L (8-16); Aspartate Amino Transferase 36 U/L (14-36); Bilirubin,Total 0.9 mg/dL (0.2-1.3); Blood Urea Nitrogen 14 mg/dL (7-17); Calcium 9.4 mg/dL (8.4-10.2); Carbon Dioxide 26 mmol/L (22-30); Chloride 101 mmol/L (98-107); Estimated CRCL calculation 136 ml/min; Estimated Glomerular Filt Rate > 60; Glucose 115 mg/dL (65-110); Lipase 63 U/L (23-300); Potassium 4.2 mmol/L (3.4-5.0); Sodium 136 mmol/L (137-145)
[2021-06-19 04:38] LABS: Lactic Acid Reflex 1.6 mmol/L (0.7-2.1)
[2021-06-19 04:52] LABS: Add Urine Microscopic? YES; Appearance Urine Cloudy (Clear); Bilirubin Urine Negative (Negative); Blood Urine 2+ (Negative); Color Urine Amber (Yellow); Glucose Urine UA Negative (Negative); Ketones Urine Negative (Negative); Leukocyte Esterase Ur Trace LEU/UL (Negative); Nitrate Urine Negative (Negative); Protein Urine 2+ mg/dL (Negative); RBC Urine >75 /hpf (0-2); Specific Grav Ur 1.023 (1.001-1.035); Squamous Epithelial Cell Urine Many /hpf (Few); Urobilinogen Urine Negative mg/dL (<2.0)
[2021-06-19 06:31] VITALS: BP 113/63; PULSE 63; RESP 16; O2SAT 99
== END 2021-06-19 06:37 | disposition home or self-care (01) ==
PROVIDERS: Emergency Provider General Practice; PCP Family Medicine
DX: N94.6 Dysmenorrhea, unspecified (principal); R10.32 Left lower quadrant pain; R10.31 Right lower quadrant pain; I10 Essential (primary) hypertension; G62.9 Polyneuropathy, unspecified; N83.202 Unspecified ovarian cyst, left side; Z79.84 Long term (current) use of oral hypoglycemic drugs; R94.31 Abnormal electrocardiogram [ECG] [EKG]
CPT/HCPCS: 36415; 74177; 80053; 81001; 81025; 83605; 83690; 85025; 93005; 96374; 96375; 99284; J2270; J2405; Q9967

== ENCOUNTER 2021-06-23 09:31 | Outpatient (CLI) | payer OTHER, SELFPAY ==
[2021-06-23 10:09] LABS: Anion Gap 6 mmol/L (8-16); Blood Urea Nitrogen 11 mg/dL (7-17); Calcium 8.6 mg/dL (8.4-10.2); Carbon Dioxide 26 mmol/L (22-30); Chloride 106 mmol/L (98-107); Estimated Glomerular Filt Rate > 60; Glucose 98 mg/dL (65-110); Sodium 138 mmol/L (137-145)
[2021-06-23 11:21] LABS: Basophils Absolute Auto 0.1 K/mm3 (0.0-0.1); Basophils Percent Auto 0.8 % (0.2-1.2); Eosinophils Absolute Auto 0.2 K/mm3 (0-0.3); Eosinophils Percent Auto 2.2 % (0-4.4); Hemoglobin 11.5 g/dL (12.0-15.0); Immature Granulocyte Absolute 0.01 K/mm3 (0.00-0.031); Immature Granulocyte Percent A 0.1 % (0-0.5); Lymphocytes Absolute Auto 1.88 K/mm3 (0.9-3.2); Lymphocytes Percent Auto 26.4 % (18.3-44.2); Mean Corpuscular HGB Conc 32.9 g/dl (32-36); Mean Corpuscular Hemoglobin 30.5 pg (26-34); Mean Corpuscular Volume 92.8 fl (80-100); Mean Platelet Volume 10.1 fl (7.4-10.4); Monocytes Absolute Auto 0.5 K/mm3 (0.1-0.6); Neutrophils Absolute Auto 4.5 K/mm3 (1.3-6.7); Neutrophils Percent Auto 63.5 % (45.5-73.1); Platelet Count Result 261 k/mm3 (150-375); Red Blood Count 3.77 M/mm3 (4.2-5.4); Red Cell Distribution Width 13.2 % (11.5-14.5); White Blood Count 7.1 K/mm3 (4.5-10.0)
== END 2021-06-23 09:32 | disposition home or self-care (01) ==
PROVIDERS: Anesthesiology; PCP Family Medicine; Visit Provider Obstetrics & Gynecology
DX: N92.0 Excessive and frequent menstruation with regular cycle (principal); Z79.899 Other long term (current) drug therapy; Z01.818 Encounter for other preprocedural examination
CPT/HCPCS: 36415; 80048; 85025; 86850; 86900; 86901

== ENCOUNTER → 2021-06-24 01:52 | Outpatient (CLI) | payer OTHER, SELFPAY ==
[2021-06-24 11:58] LABS: SARS-CoV-2 RNA PCR Negative
== END ==
PROVIDERS: PCP Family Medicine; Visit Provider Obstetrics & Gynecology
DX: Z01.812 Encounter for preprocedural laboratory examination (principal); Z20.822 Contact with and (suspected) exposure to COVID-19
CPT/HCPCS: C9803; U0003; U0005

== ENCOUNTER 2021-06-26 17:16 | Emergency (ER) | payer OTHER, SELFPAY ==
--- NOTE | ~2021-06-26 | XR_ITS ---
XR foot LT 2V DATE: 06/26/2021 17:42 INDICATION: Puncture wound TECHNIQUE: AP and lateral views COMPARISON: 09/23/2018 left foot FINDINGS: No radiopaque foreign body or subcutaneous emphysema is evident. There is mild osteoarthritis at the first metatarsophalangeal joint. There is prominent degenerative change at the tarsometatarsal area, particularly at the second through fifth tarsometatarsal joints. There is prominent posterior and plantar calcaneal enthesopathy. No fracture or dislocation, periosteal reaction or bone destruction. IMPRESSION: Polyarticular osteoarthritis Prominent plantar and posterior calcaneal enthesopathy No radiopaque foreign body or subcutaneous emphysema is evident Reviewed, dictated and finalized at location A.
[2021-06-26 17:23] VITALS: BP 140/88; PULSE 75; RESP 16; TEMP 37.3; O2SAT 100
--- NOTE | 2021-06-26 17:28 | ED.WOUNDLAC ---
HPI - Wound/Laceration General Chief Complaint: Wound/Laceration Stated Complaint: PUNCTURE WOUND L FOOT Time Seen by Provider: 06/26/21 17:29 Source: patient, RN notes reviewed and old records reviewed Mode of arrival: ambulatory Limitations: no limitations History of Present Illness HPI narrative: 46-year-old female who presents to [facility] with complaints of stepping on a nail 2 days ago that went through her shoe and into the left medial ball of foot. Patient has noted puncture wound with white tissue around wound, reports that she has been cleaning area with peroxide denies any drainage from puncture wound states some discomfort to site with increase pain with ambulation. Patient reports that she had a tetanus shot about 2 years ago in [place]. Onset (ago): day(s) (2) Extremity Location: Left: foot (left ball of foot plantar aspect) Place: home Context: accidental Associated symptoms: other (patient has neuropathy to feet) Treatments prior to arrival: other (cleansing area) Related Data Home Medications Medication Instructions Recorded Confirmed ferrous sulfate 325 mg PO TID 03/11/20 06/26/21 furosemide [Lasix] 40 mg PO BID 03/11/20 06/26/21 potassium chloride [Klor-Con M20] 20 meq PO DAILY 03/11/20 06/26/21 L. acidophilus-L. rhamnosus 1 cap PO DAILY 07/31/20 06/26/21 [Probiotic] multivitamin 1 tablet PO DAILY 07/31/20 06/26/21 albuterol sulfate 2 puff INHALATION PRN PRN 12/21/20 06/26/21 gabapentin 600 mg PO HS PRN 12/21/20 06/26/21 lisinopril 10 mg PO DAILY 12/21/20 06/26/21 polyethylene glycol 3350 17 g PO PRN PRN 12/21/20 06/26/21 metformin 100 mg PO QPM 06/17/21 06/26/21 Allergies Allergy/AdvReac Type Severity Reaction Status Date / Time nitrofurantoin Allergy Mild Rash Verified 06/26/21 17:22 [From Macrobid] prochlorperazine Allergy Mild Rash Verified 06/26/21 17:22 [From Compazine] Sulfa (Sulfonamide Allergy Unknown RASH Verified 06/26/21 17:22 Antibiotics) PROCHLORPERAZINE EDISYLATE Allergy Mild ANXIOUS Uncoded 06/26/21 17:22 Review of Systems Review of Systems: CONSTITUTIONAL: Denies fever, chills, or sweats. EYES: Denies visual changes, redness, or discharge. ENT: Denies rhinorrhea, congestion, sore throat, or otalgia. CARDIOVASCULAR: Denies chest pain, palpitations, or edema. RESPIRATORY: Denies cough or dyspnea. GASTROINTESTINAL: Denies abdominal pain, nausea, vomiting, or diarrhea. GENITOURINARY: Denies dysuria or hematuria. SKIN: Denies rash or itching.puncture wound to the plantar aspect of left foot by 1st metatarsal MUSCULOSKELETAL: Denies back pain, joint pain, or myalgia. NEUROLOGIC: Denies headache, numbness, or weakness, patient does have history of some peripheral neuropathy PSYCHIATRIC: Denies anxiety or depression. All systems reviewed & are unremarkable except as noted in HPI and below PMFSH Past Medical History Medical History Gallbladder attack Hypertension Leiomyoma Morbid obesity with BMI of 50.0-59.9, adult Neuropathy Osteoarthritis Surgical History Surgical History History of hernia repair Family History Family History Mother Family history of malignant neoplasm of breast in first degree relative Sibling Patient's brother is in good health No family history of malignant neoplasm Father Family history of heart disease in male family member before age 55 Other Diabetes mellitus Family history of cardiovascular disease Family history of malignant neoplasm of breast Social History Social History Smoking status: Never smoker Alcohol intake: never Substance use: never Substance use type: does not use Gender identity (if verbalized by the patient): Female Spiritual care concerns: No Comments At time of signature,
== END 2021-06-26 18:34 | disposition home or self-care (01) ==
PROVIDERS: Emergency Provider Registered Nurse; PCP Family Medicine
DX: S91.332A Puncture wound without foreign body, left foot, initial encounter (principal); W45.0XXA Nail entering through skin, initial encounter; I10 Essential (primary) hypertension; G62.9 Polyneuropathy, unspecified; E66.01 Morbid (severe) obesity due to excess calories; Z68.42 Body mass index [BMI] 45.0-49.9, adult; M19.90 Unspecified osteoarthritis, unspecified site
CPT/HCPCS: 73620; 99213; G0463

== ENCOUNTER 2021-06-27 00:45 | Day surgery (SDC) | payer OTHER, SELFPAY ==
[2021-06-17 15:12] VITALS: BMI 50.0
--- NOTE | 2021-06-17 15:16 | PC.NURSE ---
Report to the Outpatient Waiting Room, entrance under the green pavilion located off [facility], at time _0600_ on date _[id number]_. OR Time: _0730_. - You and your visitor will be asked a series of questions to screen for COVID 19 for your protection. - A mask is required within the hospital. Preoperative COVID Testing Requirements: Covid test 06-24-2021 at 9am. No COVID Test needed if: (proof is required; if not received patient will have Rapid Test prior to entry) - Patient has received COVID Vaccine at least 14 days prior to procedure date or - Patient has positive COVID test result within last 90 days of surgery date. COVID Test needed if above criteria is not met If not COVID vaccinated a COVID test must be conducted within 72 hours of surgery and patient is asked to isolate self from time of testing until procedure. You will go to the [facility] for your COVID testing. The [facility] site is located at the corner of [address] [facility]. You will only be called if COVID results are positive and your surgeon may reschedule your elective surgery date. Patients may have clear liquids (water, carbonated beverages, clear teas, apple juice) until 3 hours prior to surgery with a maximum of 20 ounces. - No food from midnight until time of surgery - Infants may have breast milk until 4 hours before surgery, formula 6 hours prior to surgery. - Children will be allowed to drink immediately following surgery. If applicable, please bring a bottle or sippy cup to assist with drinking. Juice, water, soda, and popsicles are readily available. For infants on formula, please bring formula the day of surgery. Pacifiers are allowed. Take the following medications with a SIP of water the morning of surgery: Medications to discontinue per physician Vitamins and supplements Date to take last [id number] Please no make-up, nail turkmen, hairspray, perfume, deodorant, or body powder the day of surgery. No jewelry (including any body piercings) or valuables the day of surgery, leave them at home. Please take a shower or bath the night before, or the morning of, surgery with an antibacterial soap. Wear comfortable, loose fitting clothing. Children are encouraged to wear pajamas. - Jewelry must be removed prior to entering the operating room. Rings and piercings that are not removed may be cut off. - The hospital will not accept responsibility for valuables. - Please leave all valuables, including medications, at home the day of surgery. If you are going home after surgery, a licensed transit bus driver must drive you home. - NO public transportation without another adult. - We recommend that an adult stay with you for 24 hours following discharge. - We also recommend that you do not drive, make important decision, drink alcoholic beverages, or take any drugs that were not prescribed by your health care provider for at least 24 hours after your discharge time. For Pediatric surgeries, we recommend two adults accompany the child home (only one inside the building at this time). One visitor will be allowed to accompany the patient into the hospital. Patients visitor will be instructed to remain with patient at all times or leave the building. We will allow the visitor to come back to the postoperative area when patient is ready. Follow any additional instructions given to you from your surgeon. Telephone instructions given to __Patient____and asked if any additional questions and then verbalized understanding. Patient advised to call surgeon office or pre surgery nurse liaison [phone] if any additional questions.
--- NOTE | 2021-06-25 08:06 | PM.IMHP ---
H&P: HPI History of Present Illness Date/Time: 06/25/21 08:06 a 46-year-old admitted for robotic total vaginectomy and bilateral salpingectomy secondary to markedly enlarged uterus irregular bleeding pelvic pain and dyspareunia. She has also been anemic. Risks and benefits reviewed including but not exclusive of , aspiration pneumonia, bleeding, transfusion, perforation injury to bowel, bladder, ureters, or other internal organs with need for open laparotomy. She received the [employer] handout entitled hysterectomy as well as de Diane handout. She had all questions answered. She asked to proceed Chief Complaint: symptomatic uterine fibroids Review of Systems Review of Systems: All systems reviewed & are unremarkable except as noted in HPI and below PMFSH Past Medical History Medical History Gallbladder attack Hypertension Neuropathy Surgical History Surgical History History of hernia repair Family History Family History Mother Family history of malignant neoplasm of breast in first degree relative Sibling Patient's brother is in good health No family history of malignant neoplasm Father Family history of heart disease in male family member before age 55 Other Diabetes mellitus Family history of cardiovascular disease Family history of malignant neoplasm of breast Social History Social History Smoking status: Never smoker Alcohol intake: never Substance use: never Substance use type: does not use Gender identity (if verbalized by the patient): Female Spiritual care concerns: No Meds Home Medications and Allergies Home Medications Medication Instructions Recorded Confirmed Type ferrous sulfate 325 mg PO TID 03/11/20 06/17/21 History furosemide [Lasix] 40 mg PO BID 03/11/20 06/17/21 History potassium chloride [Klor-Con M20] 20 meq PO DAILY 03/11/20 06/17/21 History L. acidophilus-L. rhamnosus 1 cap PO DAILY 07/31/20 06/17/21 History [Probiotic] multivitamin 1 tablet PO DAILY 07/31/20 06/17/21 History albuterol sulfate 2 puff INHALATION PRN PRN 12/21/20 06/17/21 History gabapentin 600 mg PO HS PRN 12/21/20 06/17/21 History lisinopril 10 mg PO DAILY 12/21/20 06/17/21 History polyethylene glycol 3350 17 g PO PRN PRN 12/21/20 06/17/21 History metformin 100 mg PO QPM 06/17/21 06/17/21 History Allergies Allergy/AdvReac Type Severity Reaction Status Date / Time nitrofurantoin Allergy Mild Rash Verified 06/17/21 15:07 [From Macrobid] prochlorperazine Allergy Mild Rash Verified 06/19/21 03:58 [From Compazine] Sulfa (Sulfonamide Allergy Unknown RASH Verified 06/17/21 15:07 Antibiotics) PROCHLORPERAZINE EDISYLATE Allergy Mild ANXIOUS Uncoded 06/17/21 15:07 Exam Const: General: no acute distress Eyes: General: appearance normal, both eyes and all related structures Neck: Neck: supple and no JVD Thyroid: thyroid normal Resp: Effort & Inspection: normal respiratory effort Auscultation: clear to auscultation bilaterally Cardio: Rate: regular rate Rhythm: regular rhythm GI: Inspection: non-distended GI Palp: Yes Soft to palpation, No Tenderness to palpation present (GI) and No Guarding due to palpation present (GI) Auscultation: normal bowel sounds : External Female Exam: normal external appearance Speculum Exam - Vagina: normal appearance of the vagina Speculum Exam - Cervix: normal appearance of the cervix Bimanual exam- vagina & uterus: enlarged Skin: General skin exam: no rashes or lesions noted Extrem: General: normal to inspection and no edema Psych: Mental Status: mental status grossly normal Affect: normal affect Assessment and Plan Additional Plan impression: Symptomatic uterine fibroid with a regular bleeding anemia dys
--- NOTE | 2021-06-26 17:22 | WPDANESEPPF ---
Anes - Initial Pre Proc Eval Procedure: Operation Date: 06/27/21 07:30 Proposed Procedures p Robotic Assisted Total Vaginal Hysterectomy with Bilateral Salpingectomy - Jorge Gonzalez MD Date/Time: 06/26/21 17:22 Surgeon: Jorge Gonzalez MD Pre Op Diagnosis: enlarge uterus, irreg bleeding, anemia, dysmennorr Patient Data Age: 46 Gender: F Height: 1.65 m Weight: 136.4 kg Allergies Allergy/AdvReac Type Severity Reaction Status Date / Time nitrofurantoin Allergy Mild Rash Verified 06/27/21 06:13 [From Macrobid] prochlorperazine Allergy Mild Rash Verified 06/27/21 06:13 [From Compazine] Sulfa (Sulfonamide Allergy Unknown RASH Verified 06/27/21 06:13 Antibiotics) PROCHLORPERAZINE EDISYLATE Allergy Mild ANXIOUS Uncoded 06/27/21 06:13 Home Medications Medication Instructions Recorded Confirmed Type ferrous sulfate 325 mg PO TID 03/11/20 06/27/21 History furosemide [Lasix] 40 mg PO BID 03/11/20 06/27/21 History potassium chloride [Klor-Con M20] 20 meq PO DAILY 03/11/20 06/27/21 History L. acidophilus-L. rhamnosus 1 cap PO DAILY 07/31/20 06/27/21 History [Probiotic] multivitamin 1 tablet PO DAILY 07/31/20 06/27/21 History albuterol sulfate 2 puff INHALATION PRN PRN 12/21/20 06/27/21 History gabapentin 600 mg PO HS PRN 12/21/20 06/27/21 History lisinopril 10 mg PO DAILY 12/21/20 06/27/21 History polyethylene glycol 3350 17 g PO PRN PRN 12/21/20 06/27/21 History metformin 100 mg PO QPM 06/17/21 06/27/21 History cephalexin 500 mg PO Q8H #30 cap 06/26/21 06/27/21 Rx mupirocin 1 applic TOPICAL BID #22 g 06/26/21 06/27/21 Rx hydrocodone-acetaminophen 1 tablet PO Q4H PRN #30 tablet 06/27/21 Rx Patient hx anesthesia problems: none Family hx anesthesia problems: none Results Review: All pre-operative results and documents have been reviewed as part of the pre-operative evaluation. [facility] Past Medical History Medical History Gallbladder attack Hypertension Leiomyoma Morbid obesity with BMI of 50.0-59.9, adult Neuropathy Osteoarthritis Surgical History Surgical History History of hernia repair Family History Family History Mother Family history of malignant neoplasm of breast in first degree relative Sibling Patient's brother is in good health No family history of malignant neoplasm Father Family history of heart disease in male family member before age 55 Other Diabetes mellitus Family history of cardiovascular disease Family history of malignant neoplasm of breast Social History Social History Smoking status: Never smoker Alcohol intake: never Substance use: never Substance use type: does not use Living arrangements: with family Gender identity (if verbalized by the patient): Female Spiritual care concerns: No Anes - Eval Final PreProcedure Day of Procedure 06/26/21 17:22 Patient weight: super morbidly obese Heart: regular rate and rhythm Lungs: clear to auscultation and normal air movement Airway: Mallampati scale class II Neurological: alert and oriented Last oral intake: >/= 8 hours ASA classification: III Emergent: no Anesthetic plan: proceed Anesthesia type and monitoring: general ETT Results Review: All pre-operative results and documents have been reviewed as part of the pre-operative evaluation. Informed Consent: The patient's anesthetic plan and its attendant risks and benefits were discussed with the patient/family/POA. Questions were solicited and answers provided to the satisfaction of the patient/family/POA.
[2021-06-27] VITALS (10 sets, daily range): BP systolic 95–151; BP diastolic 45–88; PULSE 47–78; RESP 10–16; TEMP 36–37.1; O2SAT 92–100
--- NOTE | 2021-06-27 06:33 | WPDHPUPDATE1 ---
History and Physical Update Update Date/Time: 06/27/21 06:33 History and Physical has been reviewed, including an updated exam of the patient. There are NO changes in the patient's condition. Risks, benefits, and alternatives have been discussed and questions answered. Patient agrees to proceed with procedure.
[2021-06-27] MEDS: ACETAMINOPHEN 500 MG TABLET 1000 MG PO (06:38)
[2021-06-27] MEDS: LACTATED RINGERS 1,000 ML 30 ML IV CONT ×2 (07:04→09:45)
[2021-06-27] MEDS: KETOROLAC 15 MG/ML VIAL (*BKC) IV PUSH (07:19)
[2021-06-27] MEDS: SCOPOLAMINE 1.5 MG PATCH TRANSDERM (07:20)
[2021-06-27] MEDS: ceFAZolin 3 GM/D5W 100 ML 100 ML IVPB (07:30)
--- NOTE | 2021-06-27 09:05 | W.PM.PROC2 ---
Procedure Note - Detailed Date of Procedure 06/27/21 Pre-op Diagnosis enlarge uterus, irreg bleeding, anemia, dysmennorr Post-op Diagnosis Same Procedure Performed Robotic total vaginal hysterectomy and bilateral salpingectomy Surgeon Jorge Gonzalez MD Anesthesia General Indications this is a 46-year-old multiparous with an enlarged uterus vaginal bleeding pelvic pain Findings markedly enlarged uterus. Normal-appearing tubes and ovaries bilaterally. Description of Procedure The patient was prepped draped in the normal sterile fashion placed in the dorsal lithotomy position. Under excellent general trach anesthesia weighted speculum placed in posterior fornix vagina. Anterior lip of the cervix grasped with single-tooth tenaculum and the uterus sounded to 12cm. Serial dilatation with fragmented dilators performed followed by the passage of the 10. TIMBO and the 3. 0.5 cold cup. A 16 [place] catheter was placed in bladder to drain urine. The instruments including the weighted speculum and single-tooth were removed. The gloves were changed Supraumbilical incision made the Veress needle passed in the abdomen. The abdomen filled with CO2 gas to 15mm Hg. The 8mm trocar advanced directly in abdomen no V injury seen. Patient placed in Trendelenburg and right left lateral quadrant incisions made. 8Mm trocars advanced under direct visualization assuring no injury. An 8mm trocar advanced in the right upper quadrant assuring no injury. The robot was docked Attention was turned to the console. There was a large adenoma at appearing fibroid uterus present. The left round ligament grasped, burned, cut. Anteriorly a bladder flap was formed by sharply dissecting the peritoneum and reflecting the bladder laterally and caudally to the opposite round ligament which was clamped, burned, cut. Next the left fallopian tube was sharply dissected using monopolar cautery and left attached to the uterine body. In like fashion the right fallopian tube was removed and left attached to the fallopian uterine body. The left utero-ovarian ligament was clamped, burned, cut and brought to the level of previously cut round ligament to conserve the right the left ovary. In like fashion right utero-ovarian ligament was clamped, burned, cut brought to the level of previously cut round ligament conserving the left ovary. The left cardinal and broad ligaments were then serially skeletonized sliding on the cervix and uterus clamping burning cutting until the large uterine tortuous vessels could be seen. These were individually clamped, burned, cut. In like fashion the cardinal broad ligaments on the right were serially skeletonized sliding along the cervix uterus clamping burning cutting until the uterine vessels could be seen on the right these were also large and tortuous. These were individually clamped, burned, cut. Excellent blanching the uterus was noted in a colpotomy incision made. The cervix uterus and tubes removed through the vagina and blood loss estimated 25cc. The vagina was closed with continuous running 0V lock from lateral edge to lateral edge back to the midline. Irrigation undertaken and pedicles all appeared dry. The robot was undocked. Gas removed from the abdomen. Incisions closed with 4-0 Monocryl and glue. The instruments removed from the vagina the patient was awakened. All sponge, needle, instrument counts were correct. There were no immediate complications noted Estimated Blood Loss 25 Drains No Packing No Pathology Yes Complications No immediate complications Condition Stable Disposition PACU
[2021-06-27] MEDS: HALOPERIDOL LACTATE 5 MG/ML VIAL 1 MG IV PUSH (09:34)
[2021-06-27] MEDS: diphenhydrAMINE HCl INJ 50 MG/ML VIAL 25 MG IV PUSH (09:58)
--- NOTE | 2021-06-27 10:35 | PC.NURSE ---
This patient, Joann Watters, was received from PACU on 06/27/21 at 1035. Patient/family oriented to unit policies and routines
[2021-06-27] MEDS: DEXTROSE 5%/LACTATED RINGERS 1,000 ML 125 ML IV CONT (10:50)
[2021-06-27] MEDS: KETOROLAC 30 MG/ML VIAL (*BKC) IV PUSH ×2 (10:51→18:04)
[2021-06-27] MEDS: HYDROcodone/acetaminophen (*CRX) 10-325 MG TABLET 1 TAB PO ×2 (12:49→16:11)
[2021-06-27] MEDS: ONDANSETRON INJ 4 MG/2 ML VIAL IV PUSH (12:52)
[2021-06-27] MEDS: DOCUSATE SODIUM 100 MG CAPSULE PO (16:11)
[2021-06-28] MEDS: KETOROLAC 30 MG/ML VIAL (*BKC) IV PUSH (00:09)
[2021-06-28] MEDS: HYDROcodone/acetaminophen (*CRX) 10-325 MG TABLET 1 TAB PO ×2 (00:10→10:03)
[2021-06-28 00:14] VITALS: BP 114/58; PULSE 66; RESP 14; TEMP 36.8; O2SAT 98
[2021-06-28 04:55] VITALS: BP 97/56; PULSE 63; RESP 14; TEMP 36.7; O2SAT 95
[2021-06-28 05:02] VITALS: PULSE 63; RESP 14; O2SAT 95
[2021-06-28 05:10] LABS: Basophils Percent Auto 0.2 % (0.2-1.2); Hematocrit 30.7 % (37.0-47.0); Hemoglobin 10.3 g/dL (12.0-15.0); Immature Granulocyte Absolute 0.09 K/mm3 (0.00-0.031); Immature Granulocyte Percent A 0.6 % (0-0.5); Lymphocytes Absolute Auto 1.28 K/mm3 (0.9-3.2); Lymphocytes Percent Auto 8.7 % (18.3-44.2); Mean Corpuscular HGB Conc 33.6 g/dl (32-36); Mean Corpuscular Hemoglobin 30.7 pg (26-34); Mean Corpuscular Volume 91.4 fl (80-100); Mean Platelet Volume 9.6 fl (7.4-10.4); Monocytes Absolute Auto 0.6 K/mm3 (0.1-0.6); Monocytes Percent Auto 4.3 % (2.6-8.5); Neutrophils Absolute Auto 12.6 K/mm3 (1.3-6.7); Neutrophils Percent Auto 86.2 % (45.5-73.1); Platelet Count Result 261 k/mm3 (150-375); Red Blood Count 3.36 M/mm3 (4.2-5.4); Red Cell Distribution Width 13.1 % (11.5-14.5); White Blood Count 14.6 K/mm3 (4.5-10.0)
--- NOTE | 2021-06-28 08:09 | PM.DS ---
DS: Admitting Diagnosis Discharge Date 06/28/2021 Admitting Diagnosis enlarged uterus/pelvic pain / dyspareunia DS: Summary Hospital Course Hospital Course: the patient was admitted for robotic total hysterectomy and bilateral salpingectomy. The procedure was unremarkable. She remained afebrile. She was up, voiding without difficulty, ambulating, generally without complaints. Routine discharge instructions were given Time Spent with Patient Time attestation: Total time spent providing and/or coordinating discharge services: Exam Const: General: no acute distress Eyes: General: appearance normal, both eyes and all related structures Neck: Neck: supple and no JVD Thyroid: thyroid normal Resp: Effort & Inspection: normal respiratory effort Auscultation: clear to auscultation bilaterally Cardio: Rate: regular rate Rhythm: regular rhythm GI: Inspection: non-distended GI Palp: Yes Soft to palpation, No Tenderness to palpation present (GI) and No Guarding due to palpation present (GI) Auscultation: normal bowel sounds : General: Yes bladder normal to palpation External Female Exam: normal external appearance Speculum Exam - Vagina: normal vaginal discharge and No vaginal bleeding Speculum Exam - Cervix: nontender Bimanual exam- vagina & uterus: bladder normal to palpation and No Cervical tenderness present OB/external & speculum: No vaginal bleeding Skin: General skin exam: no rashes or lesions noted Extrem: General: normal to inspection and no edema Psych: Mental Status: mental status grossly normal Affect: normal affect DS: Data Data Completed and Pending Pending studies at discharge: Pending at discharge 06/27/21 08:39 Surgical [PTH] Routine Labs on day of discharge: Labs from last 24 hours 06/28/21 04:56 WBC 14.6 H RBC 3.36 L Hgb 10.3 L Hct 30.7 L MCV 91.4 MCH 30.7 MCHC 33.6 RDW 13.1 Plt Count 261 MPV 9.6 Immature Gran % (Auto) 0.6 H Neut % (Auto) 86.2 H Lymph % (Auto) 8.7 L Porter % (Auto) 4.3 Eos % (Auto) 0.0 Baso % (Auto) 0.2 Lymph # (Auto) 1.28 Porter # (Auto) 0.6 Eos # (Auto) 0.0 Baso # (Auto) 0.0 Abs Immat Gran (auto) 0.09 H Absolute Neuts (auto) 12.6 H Absolute Nucleated RBC 0.0 Nucleated RBC % 0.0 Discharge Plan Discharge Patient Disposition: Home, Self-Care Stand Alone Forms: General Discharge Instructions Follow-up/Referrals: Jorge Gonzalez MD [Physician] - Discharge Medications: New hydrocodone-acetaminophen 5-325 mg tablet 1 tablet PO Q4H PRN (Reason: pain) Qty: 30 RF: 0 No Action lisinopril 10 mg tablet 10 mg PO DAILY RF: 0 gabapentin 300 mg capsule 600 mg PO HS PRN (Reason: Pain) RF: 0 polyethylene glycol 3350 17 gram/dose powder 17 g PO PRN PRN (Reason: Constipation) RF: 0 albuterol sulfate 90 mcg/actuation HFA aerosol inhaler 2 puff INHALATION PRN PRN (Reason: Shortness Of Breath) RF: 0 cephalexin 500 mg capsule 500 mg PO Q8H Qty: 30 RF: 0 mupirocin 2 % ointment 1 applic topical BID Qty: 22 RF: 0 potassium chloride [Klor-Con M20] 20 mEq Tablet,Er Particles/Crystals 20 meq PO DAILY RF: 0 ferrous sulfate 325 mg (65 mg iron) Tablet 325 mg PO TID RF: 0 furosemide [Lasix] 20 mg Tablet 40 mg PO BID RF: 0 multivitamin Tablet 1 tablet PO DAILY RF: 0 Probiotic 15 billion cell Capsule 1 cap PO DAILY RF: 0 metformin 500 mg tablet extended release 24 hr 100 mg PO QPM RF: 0
--- NOTE | 2021-06-28 08:10 | PM.GYNPNOP ---
CANOE INSPECTOR - A/P Postoperative Procedures: Procedures Operation Date: 06/27/21 07:30 Actual Procedure Side Surgeon p Robotic Assisted Total Vaginal Hysterectomy with Bilateral Salpingectomy Bilateral Jorge Gonzalez MD Postoperative day: 1 Postoperative status: doing well Postoperative plan: routine post-op care, ambulate, advance diet and discharge Time Spent With Patient Time: Total time spent is greater than 50% in coordination of care (as documented) at patient's floor/unit and/or counseling patient: Time with patient: less than 15 minutes CANOE INSPECTOR- PN:Subj Post-Op Subjective Date/time seen: 06/28/21 08:10 Subjective: patient reports feeling better, patient has no complaints, patient desires discharge and pain is well controlled Review of Systems Review of Systems: All systems reviewed & are unremarkable except as noted in HPI and below Exam Const: General: no acute distress Eyes: General: appearance normal, both eyes and all related structures Neck: Neck: supple and no JVD Thyroid: thyroid normal Resp: Effort & Inspection: normal respiratory effort Auscultation: clear to auscultation bilaterally Cardio: Rate: regular rate Rhythm: regular rhythm GI: Inspection: non-distended GI Palp: Yes Soft to palpation, No Tenderness to palpation present (GI) and No Guarding due to palpation present (GI) Auscultation: normal bowel sounds : General: Yes bladder normal to palpation External Female Exam: normal external appearance Speculum Exam - Vagina: normal vaginal discharge and No vaginal bleeding Speculum Exam - Cervix: nontender Bimanual exam- vagina & uterus: bladder normal to palpation and No Cervical tenderness present OB/external & speculum: No vaginal bleeding Skin: General skin exam: no rashes or lesions noted Extrem: General: normal to inspection and no edema Psych: Mental Status: mental status grossly normal Affect: normal affect CANOE INSPECTOR - PN: Obj Data Vital Signs Vital Signs: Vital Signs - 24 hr 06/27/21 09:24 06/27/21 09:40 06/27/21 09:55 Temperature 96.8 F L Pulse Rate 58 L 54 L 47 L Respiratory Rate 12 14 12 Blood Pressure 114/82 101/53 L 110/53 L Pulse Oximetry 98 92 95 06/27/21 10:10 06/27/21 10:24 06/27/21 10:40 Temperature 97.8 F Pulse Rate 47 L 48 L 56 L Respiratory Rate 10 L 12 16 Blood Pressure 105/55 L 95/45 L 111/56 L Pulse Oximetry 100 100 95 06/27/21 12:03 06/27/21 15:45 06/27/21 20:14 Temperature 98.3 F 98.8 F 98.2 F Pulse Rate 55 L 72 78 Respiratory Rate 16 16 16 Blood Pressure 105/60 109/65 113/64 Pulse Oximetry 95 98 100 06/28/21 00:14 06/28/21 04:55 06/28/21 05:02 Temperature 98.2 F 98.1 F Pulse Rate 66 63 63 Respiratory Rate 14 14 14 Blood Pressure 114/58 L 97/56 L Pulse Oximetry 98 95 95 Intake/Output Intake/Output: Intake & Output 06/25/21 06/26/21 06/27/21 06/28/21 23:59 23:59 23:59 23:59 Intake Total 1470 400 Output Total 440 450 Balance 1030 -50 Meds/Results Medications: Active Medications Generic Name Dose Route Start Last Admin Trade Name Freq PRN Reason Stop Dose Admin Hydrocodone Bitart/Acetaminophen 1 tab 06/27/21 10:29 Hydrocodone/Acetaminophen (*Crx) 5-325 Mg Tablet PO Q3H PRN Pain Rated 5 or Less Hydrocodone Bitart/Acetaminophen 1 tab 06/27/21 10:29 06/28/21 00:10 Hydrocodone/Acetaminophen (*Crx) 10-325 Mg Tablet PO 1 tab Q3H PRN Administration Pain Rated 6 or Greater Docusate Sodium 100 mg 06/27/21 17:00 06/27/21 16:11 Docusate Sodium 100 Mg Capsule PO 100 mg BID ZHANE Administration Enoxaparin Sodium 40 mg 06/28/21 09:00 Enoxaparin 40 Mg/0.4 Ml Syringe SUB-Q DAILY ZHANE Dextrose/Lactated Ringer's 1,000 mls @ 125 mls/hr 06/27/21 10:29 06/27/21 10:50 Dextrose 5%/Lactated Ringers IV CONT 125 mls/hr .Q8H ZHANE Administration Ibuprofen 600 mg 06/27/21 10:29 Ibuprofen 600 Mg Tablet PO Q6H PRN Cramping Ketorolac Tromethamine 30 mg
[2021-06-28] MEDS: IBUPROFEN 600 MG TABLET PO (10:02)
[2021-06-28] MEDS: DOCUSATE SODIUM 100 MG CAPSULE PO (10:03)
[2021-06-28] MEDS: ENOXAPARIN 40 MG/0.4 ML SYRINGE SUB-Q (10:04)
[2021-06-28 10:21] VITALS: BP 131/66; PULSE 59; RESP 16; TEMP 36.6; O2SAT 97
--- NOTE | 2021-06-28 12:39 | WPDANESPN ---
Anes - Prog Note Post-Op Date/Time: 06/28/21 12:39 Cardiovascular status: normal Respiratory status: normal Airway patency: baseline Mental status: baseline Post-Op hydration status: normal Vital Signs: Last Vital Signs Temp 36.6 C 06/28/21 10:21 Pulse 59 L 06/28/21 10:21 Resp 16 06/28/21 10:21 BP 131/66 06/28/21 10:21 Pulse Ox 97 06/28/21 10:21 Pain Score (VAS): 04/21 I/O: Intake & Output 06/27/21 06/28/21 06/28/21 23:59 07:59 15:59 Intake Total 240 400 Output Total 100 450 350 Balance 140 -50 -350 Laboratory Tests 06/28/21 04:56 06/28/21 04:56 WBC 14.6 H RBC 3.36 L Hgb 10.3 L Hct 30.7 L MCV 91.4 MCH 30.7 MCHC 33.6 RDW 13.1 Plt Count 261 MPV 9.6 Immature Gran % (Auto) 0.6 H Neut % (Auto) 86.2 H Lymph % (Auto) 8.7 L [place] % (Auto) 4.3 Eos % (Auto) 0.0 Baso % (Auto) 0.2 Lymph # (Auto) 1.28 [place] # (Auto) 0.6 Eos # (Auto) 0.0 Baso # (Auto) 0.0 Abs Immat Gran (auto) 0.09 H Absolute Neuts (auto) 12.6 H Absolute Nucleated RBC 0.0 Nucleated RBC % 0.0 Post-procedural complaints: none Patient Feedback: Patient satisfied with anesthetic care.
== END 2021-06-28 12:00 | disposition home or self-care (01) ==
LOC: ANHSURGERY 06:34 → ANHOB2 10:30
PROVIDERS: PCP Family Medicine; Visit Provider Obstetrics & Gynecology
PROC: (CPT 58554; principal; 2021-06-27 07:30)
DX: N93.9 Abnormal uterine and vaginal bleeding, unspecified (principal); D25.1 Intramural leiomyoma of uterus; N88.8 Other specified noninflammatory disorders of cervix uteri; N73.6 Female pelvic peritoneal adhesions (postinfective); N80.0 Endometriosis of uterus; R10.2 Pelvic and perineal pain; N94.10 Unspecified dyspareunia; I10 Essential (primary) hypertension; G62.9 Polyneuropathy, unspecified; E66.01 Morbid (severe) obesity due to excess calories; Z68.42 Body mass index [BMI] 45.0-49.9, adult; Z79.51 Long term (current) use of inhaled steroids; Z79.84 Long term (current) use of oral hypoglycemic drugs
CPT/HCPCS: 58554; S2900; 36415; 85025; 88307; 99199; A9270; J0330; J0690; J1100; J1170; J1200; J1630; J1650; J1885; J2250; J2405; J2704; J2710; J3010; J7030; J7120; J7121

== ENCOUNTER 2021-07-02 15:05 | Outpatient (CLI) | payer OTHER, SELFPAY ==
--- NOTE | ~2021-07-02 | US_ITS ---
EXAMINATION: US venous doppler [facility] EXAM DATE: 07/02/2021 16:12 INDICATION: Pain In Calf Post Op TECHNIQUE: Multiple grayscale, color flow and Doppler images of the lower extremity deep venous syste ms bilaterally were obtained and reviewed. Comparison is made to prior examination from 06/17/2021. FINDINGS: Peroneal veins poorly visualized. Right side: The right common femoral, femoral and profunda veins demonstrate normal color flow, respi ratory variation, augmentation and compressibility. Compressibility, color flow confirmed within the right popliteal, posterior tibial, and greater saphenous veins. Left side: The left common femoral, femoral and profunda veins demonstrate normal color flow, respira tory variation, augmentation and compressibility. Compressibility, color flow confirmed within the l eft popliteal, posterior tibial, and greater saphenous veins. IMPRESSION: No evidence of lower extremity deep venous thrombosis bilaterally. Reviewed, dictated and finalized at location .
== END 2021-07-02 15:06 | disposition home or self-care (01) ==
LOC: ANHIMG 15:06
PROVIDERS: PCP Family Medicine; Visit Provider Obstetrics & Gynecology
DX: G89.18 Other acute postprocedural pain (principal)
CPT/HCPCS: 93970

== ENCOUNTER 2021-07-06 19:07 | Emergency (ER) | payer OTHER, SELFPAY ==
[2021-07-06 19:11] VITALS: BP 149/105; PULSE 97; RESP 18; TEMP 37.2; O2SAT 100
--- NOTE | 2021-07-06 20:11 | PC.NURSE ---
patient states that clifford leg pain since hysterectomy. states surgery was for fibroids and heavy bleeding. denies recent control or smoking
[2021-07-06 20:30] VITALS: BP 136/78; PULSE 92; RESP 16; TEMP 36.8; O2SAT 98
--- NOTE | 2021-07-06 20:31 | ED.LOWEXIN ---
HPI - Extremity Injury (Lower) General Chief Complaint: Extremity Injury, Lower Stated Complaint: Bilateral leg pain, worse on left, recent surgery Time Seen by Provider: 07/06/21 20:03 History of Present Illness HPI Narrative: 46-year-old female presents to the emergency room complaining of bilateral lower extremity pain for almost 2 weeks. Patient is status post hysterectomy. Patient has been seen by her primary care physician for the same complaint, and has had a bilateral lower extremity Doppler completed. Patient states the Doppler was negative for DVTs. Patient states that she is continuing to have pain despite taking [place]. Patient denies injury or trauma. Related Data Home Medications Medication Instructions Recorded Confirmed ferrous sulfate 325 mg PO TID 03/11/20 06/27/21 furosemide [Lasix] 40 mg PO BID 03/11/20 06/27/21 potassium chloride [Klor-Con M20] 20 meq PO DAILY 03/11/20 06/27/21 Probiotic 1 cap PO DAILY 07/31/20 06/27/21 multivitamin 1 tablet PO DAILY 07/31/20 06/27/21 albuterol sulfate 2 puff INHALATION PRN PRN 12/21/20 06/27/21 gabapentin 600 mg PO HS PRN 12/21/20 06/27/21 lisinopril 10 mg PO DAILY 12/21/20 06/27/21 polyethylene glycol 3350 17 g PO PRN PRN 12/21/20 06/27/21 metformin 100 mg PO QPM 06/17/21 06/27/21 Allergies Allergy/AdvReac Type Severity Reaction Status Date / Time nitrofurantoin Allergy Mild Rash Verified 06/27/21 06:13 [From Macrobid] prochlorperazine Allergy Mild Rash Verified 06/27/21 06:13 [From Compazine] Sulfa (Sulfonamide Allergy Unknown RASH Verified 06/27/21 06:13 Antibiotics) PROCHLORPERAZINE EDISYLATE Allergy Mild ANXIOUS Uncoded 06/27/21 06:13 Review of Systems Review of Systems: CONSTITUTIONAL: Denies fever, chills, or sweats. EYES: Denies visual changes, redness, or discharge. ENT: Denies rhinorrhea, congestion, sore throat, or otalgia. CARDIOVASCULAR: Denies chest pain, palpitations, or edema. RESPIRATORY: Denies cough or dyspnea. GASTROINTESTINAL: Denies abdominal pain, nausea, vomiting, or diarrhea. GENITOURINARY: Denies dysuria or hematuria. SKIN: Denies rash or itching. MUSCULOSKELETAL: Reports bilateral lower extremity pain NEUROLOGIC: Denies headache, numbness, dizziness, or weakness. PSYCHIATRIC: Denies anxiety or depression. [facility] Past Medical History Medical History Gallbladder attack Hypertension Leiomyoma Morbid obesity with BMI of 50.0-59.9, adult Neuropathy Osteoarthritis Surgical History Surgical History History of hernia repair Family History Family History Mother Family history of malignant neoplasm of breast in first degree relative Sibling Patient's brother is in good health No family history of malignant neoplasm Father Family history of heart disease in male family member before age 55 Other Diabetes mellitus Family history of cardiovascular disease Family history of malignant neoplasm of breast Social History Social History Smoking status: Never smoker Alcohol intake: never Substance use: never Substance use type: does not use Gender identity (if verbalized by the patient): Female Spiritual care concerns: No Exam Narrative: GENERAL: Well-appearing, well-nourished, morbidly obese and in no acute distress. HEAD: Normocephalic, atraumatic. EYES: PERRLA and EOMI. ENT: Nares clear, no rhinorrhea or epistaxis. Mucous membranes moist. CHEST: Clear to auscultation. No respiratory distress. No wheezes rales or rhonchi HEART: Regular rate and rhythm. No murmur heard. Normal peripheral pulses. EXTREMITIES: Normal range of motion. No edema. No erythema or cyanosis negative Homans' sign bilaterally SKIN: Warm, dry, no rash. NEURO: No focal deficits. Alert and oriented x3. PSYCH:
[2021-07-06 20:56] LABS: Basophils Absolute Auto 0.1 K/mm3 (0.0-0.1); Basophils Percent Auto 0.6 % (0.2-1.2); Eosinophils Absolute Auto 0.5 K/mm3 (0-0.3); Eosinophils Percent Auto 4.3 % (0-4.4); Hematocrit 40.3 % (37.0-47.0); Hemoglobin 13.1 g/dL (12.0-15.0); Immature Granulocyte Absolute 0.06 K/mm3 (0.00-0.031); Immature Granulocyte Percent A 0.5 % (0-0.5); Lymphocytes Absolute Auto 2.12 K/mm3 (0.9-3.2); Lymphocytes Percent Auto 18.2 % (18.3-44.2); Mean Corpuscular HGB Conc 32.5 g/dl (32-36); Mean Corpuscular Volume 92.2 fl (80-100); Mean Platelet Volume 9.3 fl (7.4-10.4); Monocytes Percent Auto 8.5 % (2.6-8.5); Neutrophils Absolute Auto 7.9 K/mm3 (1.3-6.7); Neutrophils Percent Auto 67.9 % (45.5-73.1); Platelet Count Result 313 k/mm3 (150-375); Red Blood Count 4.37 M/mm3 (4.2-5.4); Red Cell Distribution Width 13.3 % (11.5-14.5); White Blood Count 11.7 K/mm3 (4.5-10.0)
[2021-07-06 21:06] LABS: Alanine Aminotransferase 21 U/L (4-35); Albumin Level 4.6 g/dL (3.5-5.1); Alkaline Phosphatase 82 U/L (38-126); Anion Gap 9 mmol/L (8-16); Aspartate Amino Transferase 26 U/L (14-36); Bilirubin,Total 0.5 mg/dL (0.2-1.3); Blood Urea Nitrogen 16 mg/dL (7-17); Calcium 9.8 mg/dL (8.4-10.2); Carbon Dioxide 27 mmol/L (22-30); Chloride 103 mmol/L (98-107); Estimated CRCL calculation 121 ml/min; Estimated Glomerular Filt Rate > 60; Glucose 112 mg/dL (65-110); Magnesium 1.9 mg/dL (1.6-2.3); Potassium 4.2 mmol/L (3.4-5.0); Sodium 139 mmol/L (137-145)
[2021-07-06 21:13] LABS: NT Pro B Type Natriuretic Pept 30 pg/mL (5-100)
[2021-07-06 21:38] VITALS: BP 134/88; PULSE 82; RESP 16; TEMP 36.8; O2SAT 96
== END 2021-07-06 21:42 | disposition home or self-care (01) ==
PROVIDERS: Emergency Provider Nurse Practitioner Family; PCP Family Medicine
DX: M79.605 Pain in left leg (principal); M79.604 Pain in right leg; Z79.84 Long term (current) use of oral hypoglycemic drugs; I10 Essential (primary) hypertension; G62.9 Polyneuropathy, unspecified; M19.90 Unspecified osteoarthritis, unspecified site; E66.01 Morbid (severe) obesity due to excess calories; Z68.42 Body mass index [BMI] 45.0-49.9, adult; Z98.890 Other specified postprocedural states
CPT/HCPCS: 36415; 80053; 83735; 83880; 85025; 99283

== ENCOUNTER 2021-07-27 12:31 | Emergency (ER) | payer OTHER, SELFPAY ==
--- NOTE | ~2021-07-27 | US_ITS ---
EXAMINATION: US venous doppler LE RT DATE: 07/27/2021 14:56 INDICATION: Right calf muscle pain, swelling, and redness nontraumatic . Hysterectomy 2 weeks ago. TECHNIQUE: Grayscale images without and with compression and Doppler images of the right lower extrem ity veins were obtained. COMPARISON: None. FINDINGS: The right common femoral vein, profunda (deep) femoral vein, femoral vein, popliteal vein, peroneal v ein, posterior tibial veins, and greater saphenous vein are patent. Directed evaluation of the areas of clinical concern indicated by the patient revealed no mass, fluid collection, or thrombosed vessel s. IMPRESSION: 1. Patent right lower extremity veins. No evidence of deep venous thrombosis. Reviewed, dictated and finalized at location K.
[2021-07-27 12:33] VITALS: BP 146/63; PULSE 82; RESP 15; TEMP 36.9; O2SAT 100
[2021-07-27 14:26] VITALS: BP 131/78; PULSE 67; RESP 18; TEMP 36.4; O2SAT 100
--- NOTE | 2021-07-27 14:43 | ED.EXTPRO ---
HPI - Extremity Problem General Chief complaint: Extremity Problem,Nontraumatic Stated complaint: right lower extremity pain Time Seen by Provider: 07/27/21 14:04 Source: patient Mode of arrival: ambulatory Limitations: no limitations History of Present Illness HPI Narrative: Patient is 46 years old white female, morbidly obese noticed some discomfort and lump-like feeling under the skin of the upper medial lower leg just distal to the knee. Patient denies any Fever, chills, nausea, vomiting, shortness of breath or any recent trauma Related Data Home Medications Medication Instructions Recorded Confirmed ferrous sulfate 325 mg PO TID 03/11/20 06/27/21 furosemide [Lasix] 40 mg PO BID 03/11/20 06/27/21 potassium chloride [Klor-Con M20] 20 meq PO DAILY 03/11/20 06/27/21 Probiotic 1 cap PO DAILY 07/31/20 06/27/21 multivitamin 1 tablet PO DAILY 07/31/20 06/27/21 albuterol sulfate 2 puff INHALATION PRN PRN 12/21/20 06/27/21 gabapentin 600 mg PO HS PRN 12/21/20 06/27/21 lisinopril 10 mg PO DAILY 12/21/20 06/27/21 polyethylene glycol 3350 17 g PO PRN PRN 12/21/20 06/27/21 metformin 100 mg PO QPM 06/17/21 06/27/21 Allergies Allergy/AdvReac Type Severity Reaction Status Date / Time nitrofurantoin Allergy Mild Rash Verified 07/27/21 14:24 [From Macrobid] prochlorperazine Allergy Mild Rash Verified 07/27/21 14:24 [From Compazine] Sulfa (Sulfonamide Allergy Unknown RASH Verified 07/27/21 14:24 Antibiotics) PROCHLORPERAZINE EDISYLATE Allergy Mild ANXIOUS Uncoded 07/27/21 14:24 Review of Systems Review of Systems: CONSTITUTIONAL: Denies fever, chills, or sweats. EYES: Denies visual changes, redness, or discharge. ENT: Denies rhinorrhea, congestion, sore throat, or otalgia. CARDIOVASCULAR: Denies chest pain, palpitations, or edema. RESPIRATORY: Denies cough or dyspnea. GASTROINTESTINAL: Denies abdominal pain, nausea, vomiting, or diarrhea. GENITOURINARY: Denies dysuria or hematuria. SKIN: Denies rash or itching. MUSCULOSKELETAL: Denies back pain, joint pain, or myalgia. NEUROLOGIC: Denies headache, numbness, or weakness. PSYCHIATRIC: Denies anxiety or depression. [facility] Past Medical History Medical History Gallbladder attack Hypertension Leiomyoma Morbid obesity with BMI of 50.0-59.9, adult Neuropathy Osteoarthritis Surgical History Surgical History History of hernia repair Family History Family History Mother Family history of malignant neoplasm of breast in first degree relative Sibling Patient's brother is in good health No family history of malignant neoplasm Father Family history of heart disease in male family member before age 55 Other Diabetes mellitus Family history of cardiovascular disease Family history of malignant neoplasm of breast Social History Social History Smoking status: Never smoker Alcohol intake: never Substance use: never Substance use type: does not use Gender identity (if verbalized by the patient): Female Spiritual care concerns: No Exam Narrative: General appearance: Well-developed, well-nourished Skin: Normal color Head: Normocephalic, nontraumatic Eyes: Clear conjunctiva ENT: Oropharynx normal, ears normal, nose normal Neck: Supple, nontender Chest and respiratory: Airway patent, no respiratory distress, no accessory muscle use Heart: Regular rate/rhythm Abdomen: Soft, nontender, no organomegaly, quiet bowel sounds Vascular: Normal peripheral pulses, normal capillary refill. Musculoskeletal: Normal range of motion, nontender back right lower leg showed some tenderness and teri-like feeling under the skin consistent with superficial thrombophlebitis at the upper medial side just distal to the right knee Neurologic: Alert and oriented ?3, [employer] is norm
[2021-07-27 15:20] VITALS: BP 143/98; PULSE 88; RESP 18; O2SAT 100
== END 2021-07-27 15:23 | disposition home or self-care (01) ==
PROVIDERS: Emergency Provider Emergency Medicine; PCP Family Medicine
DX: I80.01 Phlebitis and thrombophlebitis of superficial vessels of right lower extremity (principal); E66.01 Morbid (severe) obesity due to excess calories; Z68.42 Body mass index [BMI] 45.0-49.9, adult; Z79.84 Long term (current) use of oral hypoglycemic drugs; I10 Essential (primary) hypertension; G62.9 Polyneuropathy, unspecified; M19.90 Unspecified osteoarthritis, unspecified site
CPT/HCPCS: 93971; 99284

== ENCOUNTER 2021-08-25 16:57 | Emergency (ER) | payer OTHER, SELFPAY ==
[2021-08-25 17:08] VITALS: BP 149/86; PULSE 73; RESP 18; TEMP 36.9; O2SAT 100
--- NOTE | 2021-08-25 18:24 | ED.HA ---
HPI - Headache General Chief Complaint: Headache <TICO Cramer Last Filed: 08/26/21 02:37> Stated Complaint: HEADACHE <TICO Cramer Last Filed: 08/26/21 02:37> Time Seen by Provider: 08/25/21 18:11 <TICO Cramer Last Filed: 08/26/21 02:37> Source: patient <TICO Cramer Last Filed: 08/26/21 02:37> Mode of arrival: ambulatory <TICO Cramer Last Filed: 08/26/21 02:37> Limitations: no limitations <TICO Cramer Filed: 08/26/21 02:37> History of Present Illness HPI Narrative: Patient is a 46 y/o female who presents to the ED with c/o headache. Patient reports she woke up this morning with a left frontal/left parietal headache. The pain has persisted throughout most of today. She takes an aspirin 81 mg daily and took this this morning. She also tried taking Tylenol around noon without much relief. Patient has a history of migraines as a child, but denies any history as an adult. No recent fall or injury. Reports phonophobia, but denies photophobia or visual changes. Also reports nausea, but denies vomiting, lightheadedness, dizziness, fever, cough, cold symptoms. She does have chronic sinus issues with recent recurrent symptoms. <TICO Cramer Last Filed: 08/26/21 02:37> Related Data Home Medications: Home Medications Medication Instructions Recorded Confirmed furosemide [Lasix] 40 mg PO BID 03/11/20 07/31/21 potassium chloride [Klor-Con M20] 20 meq PO DAILY 03/11/20 07/31/21 Probiotic 1 cap PO DAILY 07/31/20 07/31/21 multivitamin 1 tablet PO DAILY 07/31/20 07/31/21 albuterol sulfate 2 puff INHALATION PRN PRN 12/21/20 07/31/21 lisinopril 10 mg PO DAILY 12/21/20 07/31/21 polyethylene glycol 3350 17 g PO PRN PRN 12/21/20 07/31/21 metformin 100 mg PO QPM 06/17/21 07/31/21 <Vera Rogers PA-C - Last Filed: 08/26/21 02:37> Allergies/Adverse Reactions: Allergies Allergy/AdvReac Type Severity Reaction Status Date / Time nitrofurantoin Allergy Mild Rash Verified 08/25/21 18:10 [From Macrobid] prochlorperazine Allergy Mild Rash Verified 08/25/21 18:10 [From Compazine] Sulfa (Sulfonamide Allergy Unknown RASH Verified 08/25/21 18:10 Antibiotics) morphine AdvReac Nausea Verified 08/25/21 18:10 PROCHLORPERAZINE EDISYLATE Allergy Mild ANXIOUS Uncoded 08/25/21 18:10 <Vera Rogers PA-C - Last Filed: 08/26/21 02:37> Review of Systems Review of Systems: CONSTITUTIONAL: Denies fever, chills, or sweats. EYES: Denies visual changes, photophobia. ENT: Reports phonophobia, sinus pressure. Denies rhinorrhea, congestion, sore throat. CARDIOVASCULAR: Denies chest pain, palpitations, or edema. RESPIRATORY: Denies cough or dyspnea. GASTROINTESTINAL: Reports nausea. Denies abdominal pain, nausea, vomiting, or diarrhea. GENITOURINARY: Denies dysuria or hematuria. SKIN: Denies rash or itching. NEUROLOGIC: Reports [place]. Denies lightheadedness, dizziness, numbness, or weakness. <Vera Rogers PA-C - Last Filed: 08/26/21 02:37> All systems reviewed & are unremarkable except as noted in HPI and below <Vera Rogers PA-C - Last Filed: 08/26/21 02:37> [facility] Past Medical History Medical History: Medical History Anemia Diverticulosis Gallbladder attack Hypertension Leiomyoma Morbid obesity with BMI of 50.0-59.9, adult Neuropathy Osteoarthritis <Vera Rogers PA-C - Last Filed: 08/26/21 02:37> Surgical History Surgical History: Surgical History H/O: hysterectomy History of hernia repair <Vera Rogers PA-C - Last Filed: 08/26/21 02:37> Family History Family History: Family History Mother Family history of malignant neoplasm of breast in first degree relative Sibling Patient's brother is in good health No fami
[2021-08-25] MEDS: SODIUM CHLORIDE 0.9% IV 1,000 ML 999 ML IV CONT (18:47)
[2021-08-25] MEDS: diphenhydrAMINE HCl INJ 50 MG/ML VIAL 25 MG IV PUSH (18:48)
[2021-08-25] MEDS: METOCLOPRAMIDE HCL INJ 10 MG/2 ML VIAL IV PUSH (18:48)
== END 2021-08-25 19:56 | disposition home or self-care (01) ==
PROVIDERS: Emergency Provider Emergency Medicine; PCP Family Medicine
DX: R51.9 Headache, unspecified (principal); I10 Essential (primary) hypertension; G62.9 Polyneuropathy, unspecified; M19.90 Unspecified osteoarthritis, unspecified site; E66.01 Morbid (severe) obesity due to excess calories; Z68.42 Body mass index [BMI] 45.0-49.9, adult; Z86.2 Personal history of diseases of the blood and blood-forming organs and certain disorders involving the immune mechanism
CPT/HCPCS: 96361; 96374; 96375; 99284; J0131; J1100; J1200; J2765; J7030

== ENCOUNTER 2021-08-26 11:26 | Outpatient (CLI) | payer OTHER, SELFPAY ==
--- NOTE | ~2021-08-26 | XR_ITS ---
EXAMINATION: XR chest 2V DATE: 08/26/2021 12:06 INDICATION: Dyspnea on exertion TECHNIQUE: PA and lateral views of the chest were obtained. COMPARISON: Chest radiograph dated 10/21/2020 FINDINGS: The lungs remain clear with no focal airspace opacities, pulmonary edema, pleural effusion or pneumot horax. The cardiomediastinal silhouette is normal. Mild midthoracic spondylosis. Cholecystectomy clip s in the right upper quadrant. IMPRESSION: 1. No acute cardiopulmonary disease. Reviewed, dictated and finalized at location A.
[2021-08-26 12:11] LABS: D Dimer 0.75 ug/mL (<0.48)
[2021-08-26 12:19] LABS: NT Pro B Type Natriuretic Pept 129 pg/mL (5-100)
[2021-08-28 13:10] LABS: NIL 0.01 IU/mL; Quantiferon TB Plus, 1T NEGATIVE (NEGATIVE)
[2021-08-30 11:42] LABS: Immunoglobulin G, Serum 1072 mg/dL (600-1640); Immunoglobulin G1 713 mg/dL (382-929); Immunoglobulin G2 243 mg/dL (241-700); Immunoglobulin G3 58 mg/dL (22-178); Immunoglobulin G4 6.5 mg/dL (4.0-86.0)
== END 2021-08-26 11:27 | disposition home or self-care (01) ==
LOC: ANHLAB 11:28
PROVIDERS: PCP Family Medicine; Visit Provider Nurse Practitioner
DX: R06.09 Other forms of dyspnea (principal); I82.813 Embolism and thrombosis of superficial veins of lower extremities, bilateral
CPT/HCPCS: 36415; 71046; 82784; 82785; 82787; 83880; 85380; 86003; 86480

== ENCOUNTER 2021-09-06 08:38 | Emergency (ER) | payer OTHER, SELFPAY ==
[2021-09-06 08:44] VITALS: BP 132/70; PULSE 71; RESP 19; TEMP 37.1; O2SAT 100
--- NOTE | 2021-09-06 08:56 | ED.WOUNDLAC ---
HPI - Wound/Laceration General Chief Complaint: Wound/Laceration Stated Complaint: Laceration on toe Time Seen by Provider: 09/06/21 08:56 Source: patient Mode of arrival: ambulatory Limitations: no limitations History of Present Illness HPI narrative: 46-year-old female presented for complaint of wound to the left little toe after injury around 0400 this morning. She states she slipped in the kitchen, her foot went under to the refrigerator, when she pulled it out it scraped the top of her toe. She states she takes an aspirin daily, applied pressure to the site and the bleeding stopped. However she bumped the toe and it started bleeding again so she wanted evaluation. She denies numbness, tingling, weakness or decreased range of motion to the toe. She is Not up-to-date on her tetanus vaccine. Related Data Home Medications Medication Instructions Recorded Confirmed furosemide 20 mg tablet (Lasix) 40 mg PO BID 03/11/20 07/31/21 potassium chloride 20 mEq 20 meq PO DAILY 03/11/20 07/31/21 tablet,extended release(part/cryst) (Klor-Con M) Lactobacillus acidophilus and 1 cap PO DAILY 07/31/20 07/31/21 rhamnosus 15 billion cell capsule (Probiotic) multivitamin 1 tablet PO DAILY 07/31/20 07/31/21 albuterol sulfate 90 mcg/actuation 2 puff inhalation PRN PRN 12/21/20 07/31/21 aerosol inhaler Shortness Of Breath lisinopril 10 mg tablet 10 mg PO DAILY 12/21/20 07/31/21 polyethylene glycol 3350 17 17 g PO PRN PRN Constipation 12/21/20 07/31/21 gram/dose oral powder metformin 500 mg tablet,extended 100 mg PO QPM 06/17/21 07/31/21 release 24 hr fluticasone propionate 50 50 mcg intranasal DAILY 09/06/21 09/06/21 mcg/actuation nasal spray,suspension metronidazole 500 mg tablet 1 tablet PO BID 09/06/21 09/06/21 mupirocin 2 % topical ointment 1 ea topical BID 09/06/21 09/06/21 ondansetron 8 mg disintegrating 8 mg PO DIRECTED 09/06/21 09/06/21 tablet Allergies Allergy/AdvReac Type Severity Reaction Status Date / Time nitrofurantoin Allergy Mild Rash Verified 09/06/21 09:07 [From Macrobid] prochlorperazine Allergy Mild Rash Verified 09/06/21 09:07 [From Compazine] Sulfa (Sulfonamide Allergy Unknown RASH Verified 09/06/21 09:07 Antibiotics) morphine AdvReac Nausea Verified 09/06/21 09:07 PROCHLORPERAZINE EDISYLATE Allergy Mild ANXIOUS Uncoded 09/06/21 09:07 Review of Systems Review of Systems: CONSTITUTIONAL: Denies fever, chills, or sweats. EYES: Denies visual changes, redness, or discharge. CARDIOVASCULAR: Denies chest pain, palpitations, or edema. RESPIRATORY: Denies cough or dyspnea. SKIN: reports wound left toe MUSCULOSKELETAL: Deniesjoint pain, or myalgia. NEUROLOGIC: Denies headache, numbness, tingling, or weakness. [facility] Past Medical History Medical History Anemia Diverticulosis Gallbladder attack Hypertension Leiomyoma Morbid obesity with BMI of 50.0-59.9, adult Neuropathy Osteoarthritis Surgical History Surgical History H/O: hysterectomy History of hernia repair Family History Family History Mother Family history of malignant neoplasm of breast in first degree relative Sibling Patient's brother is in good health No family history of malignant neoplasm Father Family history of heart disease in male family member before age 55 Other Diabetes mellitus Family history of cardiovascular disease Family history of malignant neoplasm of breast Social History Social History Smoking status: Never smoker Alcohol intake: never Substance use: never Substance use type: does not use Gender identity (if verbalized by the patient): Female Spiritual care concerns: No Comments At time of signature, I have reviewed and agree wi
[2021-09-06] MEDS: TETANUS,DIPHTHERIA,AC PERTUSSIS ADULT (0.5 ML) BOOSTRIX IM (09:12)
== END 2021-09-06 09:17 | disposition home or self-care (01) ==
PROVIDERS: Emergency Provider Nurse Practitioner Family; PCP Family Medicine
DX: S91.105A Unspecified open wound of left lesser toe(s) without damage to nail, initial encounter (principal); W22.8XXA Striking against or struck by other objects, initial encounter; Z23 Encounter for immunization; I10 Essential (primary) hypertension; M19.90 Unspecified osteoarthritis, unspecified site; G62.9 Polyneuropathy, unspecified; E66.01 Morbid (severe) obesity due to excess calories; Z68.41 Body mass index [BMI] 40.0-44.9, adult
CPT/HCPCS: 90471; 90715; 99202; G0463

== ENCOUNTER 2021-09-16 11:33 | Outpatient (CLI) | payer OTHER, SELFPAY ==
--- NOTE | 2021-09-17 10:32 | WPDPFTINT ---
PFT Procedure Performed PFT Procedure Performed Spirometry with Pre/Post Bronchodilator Plethysmography (Lung Vol) Flow Vol Loop PFT Interpretation Lung volumes were measured with the body plethysmography method. The diminished expiratory reserve volume is related to obesity. The remaining lung volumes are unremarkable. Spirometry showed normal expiratory flow rates and a normal FEV1 to FVC ratio of 77%. Following administration of a bronchodilator there was no significant change in the expiratory flow rates. Lung diffusion capacity was not measured. The flow volume loop is unremarkable. Impression: Spirometry and lung volumes within normal range.
--- NOTE | 2021-09-17 10:38 | WPDSIXMINUTE ---
Six Minute Walk Procedure Procedure Performed Pulmonary Stress Test (6 min walk) Six Minute Walk Six Minute Walk: This 6 minute walk test was carried out with the patient breathing ambient air. The pre walk oxyhemoglobin saturation was 97%. The patient walked over 304 m with no stops during testing. During the walk, the oxyhemoglobin saturation remained 95% or higher. The perceived dyspnea on the Martha scale was 2 at baseline and increased to 4 at the end of testing. Impression: No evidence of oxyhemoglobin desaturation on this testing.
== END 2021-09-16 11:34 | disposition home or self-care (01) ==
LOC: ANHPFT 11:37
PROVIDERS: PCP Family Medicine; Visit Provider Nurse Practitioner
DX: R06.09 Other forms of dyspnea (principal); Z86.16 Personal history of COVID-19
CPT/HCPCS: 94060; 94618; 94726

== ENCOUNTER 2021-09-23 13:56 | Outpatient (CLI) | payer OTHER, SELFPAY ==
--- NOTE | ~2021-09-23 | CT_ITS ---
EXAMINATION: CT abdomen pelvis wo con DATE: 09/23/2021 14:19 INDICATION: ABD PAIN TECHNIQUE: Computed tomography (CT) of the abdomen and pelvis was performed without intravenous contr ast. Automated exposure control and iterative reconstruction technique were employed. The dose-length product was 1564.80 mGy-cm. COMPARISON: 06/19/2021. FINDINGS: Lower thorax: Unremarkable Liver: Enlarged and low density. Biliary/Gallbladder: Gallbladder is absent. No bile duct dilation. Pancreas: No mass or duct dilation. Spleen: Normal. Adrenals:No mass. Kidneys: No mass, stone, or hydronephrosis. GI tract: No small or large bowel dilation. Normal appendix. Diverticulosis without diverticulitis. T he rectum is dilated to 6.9 cm by formed stool. Mesentery/Peritoneum: No ascites, mass, or free air. Retroperitoneum: No mass. Pelvis: Uterus not visualized, otherwise pelvic organs are within normal limits. Soft Tissues: Soft tissues and body wall unremarkable. Bones: No acute osseous finding. IMPRESSION: Possible fecal impaction. Otherwise no acute abdominopelvic process. Hepatomegaly. Steatosis. Reviewed, dictated and finalized at location K. IMPRESSION: Possible fecal impaction. Otherwise no acute abdominopelvic process. Hepatomega ly. Steatosis.
== END 2021-09-23 13:57 | disposition home or self-care (01) ==
PROVIDERS: PCP Family Medicine; Visit Provider Family Medicine
DX: R10.9 Unspecified abdominal pain (principal); K76.0 Fatty (change of) liver, not elsewhere classified
CPT/HCPCS: 74176

== ENCOUNTER 2021-10-06 07:49 | Outpatient (CLI) | payer OTHER, SELFPAY ==
--- NOTE | ~2021-10-06 | US_ITS ---
US abdomen limited INDICATION: Hepatomegaly PROCEDURE: Realtime right upper abdominal ultrasound. COMPARISON: CT dated 09/23/2021 FINDINGS: The pancreas is normal without focal mass or pancreatic ductal dilation. Liver echotexture is increased, consistent with fatty infiltration. Liver is enlarged measuring 23.9 cm. There is norm al directional flow in the portal vein. Gallbladder is surgically absent. Common bile duct measures 5 mm. No sonographic Melgar's sign. IMPRESSION: 1: Hepatomegaly with fatty infiltration of the liver. Reviewed, dictated and finalized at location A.
== END 2021-10-06 07:50 | disposition home or self-care (01) ==
LOC: ANHIMG 07:52
PROVIDERS: PCP Family Medicine; Visit Provider Family Medicine
DX: K76.0 Fatty (change of) liver, not elsewhere classified (principal)
CPT/HCPCS: 76705

== ENCOUNTER 2021-10-09 10:07 | Outpatient (CLI) | payer OTHER, SELFPAY ==
--- NOTE | ~2021-10-09 | XR_ITS ---
XR thoracic spine 3V DATE: 10/09/2021 10:30 INDICATION: Back pain TECHNIQUE: AP, lateral, swimmer views COMPARISON: None FINDINGS: There is minimal dextro scoliosis of the upper thoracic spine. There is minimal degenerativ e spurring of the midthoracic spine. No fracture or dislocation or bone destruction. The thoracic ped icles are intact. No paraspinal soft tissue thickening. IMPRESSION: Minimal scoliosis and minimal degenerative change Reviewed, dictated and finalized at location B.
--- NOTE | ~2021-10-09 | CT_ITS ---
EXAMINATION: CTA chest PE protocol DATE: 10/09/2021 10:40 INDICATION: Shortness of breath, positive d-dimer. Abnormal coagulation profile. TECHNIQUE: Computed tomography angiography (CTA) of the chest was performed with 100 mL Omnipaque-350 intravenous contrast timed to evaluate the pulmonary arteries. Coronal maximum intensity projection 3D-reconstructions were created by the technologist. Automated exposure control and iterative reconst ruction technique were employed. Exam dose: 873.73 mGy-cm total exam DLP. COMPARISON: 08/26/2021 2 view chest FINDINGS: There is moderate opacification of the pulmonary arteries and no evidence of pulmonary embo lism. No pulmonary infiltrate or consolidation or pulmonary mass lesion is detected. Normal heart size. No pericardial effusion. No hilar or mediastinal mass lesion or lymphadenopathy. No thoracic aortic aneurysm or dissection. Small sliding hiatal hernia. Normal morphology of the adrenal glands. Included skeletal structures are unremarkable. IMPRESSION: No evidence of pulmonary embolism Small sliding hiatal hernia Reviewed, dictated and finalized at Location A. Reviewed, dictated and finalized at location B.
[2021-10-09 10:35] LABS: Estimated Glomerular Filt Rate > 60
== END 2021-10-09 10:08 | disposition home or self-care (01) ==
PROVIDERS: PCP Family Medicine; Visit Provider Nurse Practitioner
DX: R79.1 Abnormal coagulation profile (principal); K44.9 Diaphragmatic hernia without obstruction or gangrene
CPT/HCPCS: 71275; 72072; Q9967

== ENCOUNTER 2021-11-13 11:30 | Outpatient (CLI) | payer OTHER, SELFPAY ==
--- NOTE | ~2021-11-13 | XR_ITS ---
XR ankle RT min 3V DATE: 11/13/2021 12:00 INDICATION: Lateral bruising, swelling. Right ankle pain. TECHNIQUE: 4 views COMPARISON: None FINDINGS: Prominent plantar and posterior calcaneal enthesopathy. There is osteophytic change at the tarsal and tarsometatarsal joints. No fracture or dislocation of the ankle or disruption of the ankle mortise. No periosteal reaction or bone destruction. IMPRESSION: Prominent plantar and posterior calcaneal enthesopathy Osteoarthritis at the tarsal and tarsometatarsal joints No fracture or dislocation of the left ankle Reviewed, dictated and finalized at location B.
== END 2021-11-13 11:31 | disposition home or self-care (01) ==
PROVIDERS: PCP Family Medicine; Visit Provider Nurse Practitioner Family
DX: M77.31 Calcaneal spur, right foot (principal); M19.071 Primary osteoarthritis, right ankle and foot
CPT/HCPCS: 73610

== ENCOUNTER 2021-11-24 18:38 | Emergency (ER) | payer OTHER, SELFPAY ==
[2021-11-24 18:45] VITALS: BP 132/68; PULSE 76; RESP 18; TEMP 37.1; O2SAT 100
--- NOTE | 2021-11-24 19:48 | ED.LOWEXIN ---
HPI - Extremity Injury (Lower) General Chief Complaint: Extremity Injury, Lower Stated Complaint: Right foot wound Time Seen by Provider: 11/24/21 19:48 Source: patient Mode of arrival: ambulatory Limitations: no limitations History of Present Illness HPI Narrative: 46-year-old female presents with complaint of wound to right third toe for 3 days. Denies injury. States that she first noticed redness and pain in a few days later noticed drainage and that wound had opened. 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 Reports that she was recently told by [employer] that her A1c was borderline. Has not followed up with primary care physician for further evaluation of elevated A1c. All systems reviewed and negative except as noted above. Related Data Home Medications Medication Instructions Recorded Confirmed furosemide 20 mg tablet (Lasix) 40 mg PO BID 03/11/20 11/24/21 potassium chloride 20 mEq 20 meq PO DAILY 03/11/20 11/24/21 tablet,extended release(part/cryst) (Klor-Con M) Lactobacillus acidophilus and 1 cap PO DAILY 07/31/20 11/24/21 rhamnosus 15 billion cell capsule (Probiotic) multivitamin 1 tablet PO DAILY 07/31/20 11/24/21 albuterol sulfate 90 mcg/actuation 2 puff inhalation PRN PRN 12/21/20 11/24/21 aerosol inhaler Shortness Of Breath lisinopril 10 mg tablet 10 mg PO DAILY 12/21/20 11/24/21 polyethylene glycol 3350 17 17 g PO PRN PRN Constipation 12/21/20 11/24/21 gram/dose oral powder metformin 500 mg tablet,extended 100 mg PO QPM 06/17/21 11/24/21 release 24 hr fluticasone propionate 50 50 mcg intranasal DAILY 09/06/21 11/24/21 mcg/actuation nasal spray,suspension ondansetron 8 mg disintegrating 8 mg PO DIRECTED 09/06/21 11/24/21 tablet ergocalciferol (vitamin D2) 1,250 1,250 mcg WEEKLY 11/24/21 11/24/21 mcg (50,000 unit) capsule hydrocodone 5 mg-acetaminophen 325 1 tablet PO PRN 11/24/21 11/24/21 mg tablet Allergies Allergy/AdvReac Type Severity Reaction Status Date / Time nitrofurantoin Allergy Mild Rash Verified 11/24/21 18:52 [From Macrobid] prochlorperazine Allergy Mild Rash Verified 11/24/21 18:52 [From Compazine] Sulfa (Sulfonamide Allergy Unknown RASH Verified 11/24/21 18:52 Antibiotics) morphine AdvReac Nausea Verified 11/24/21 18:52 PROCHLORPERAZINE EDISYLATE Allergy Mild ANXIOUS Uncoded 11/24/21 18:52 Review of Systems Review of Systems: CONSTITUTIONAL: Denies fever, chills, or sweats. EYES: Denies visual changes, redness, or discharge. ENT: Denies rhinorrhea, congestion, sore throat, or otalgia. CARDIOVASCULAR: Denies chest pain, palpitations, or edema. RESPIRATORY: Denies cough or dyspnea. GASTROINTESTINAL: Denies abdominal pain, nausea, vomiting, or diarrhea. GENITOURINARY: Denies dysuria or hematuria. SKIN: Denies rash or itching. Reports open, draining wound to right third toe. MUSCULOSKELETAL: Denies back pain, joint pain, or myalgia. NEUROLOGIC: Denies headache, numbness, or weakness. PSYCHIATRIC: Denies anxiety or depression. All other systems reviewed are negative, except as documented in HPI. [facility] Past Medical History Medical History Anemia Diverticulosis Gallbladder attack Hypertension Leiomyoma Morbid obesity with BMI of 50.0-59.9, adult Neuropathy Osteoarthritis Surgical History Surgical History H/O: hysterectomy History of hernia repair Family History Family History Mother Family history of malignant neoplasm of breast in first degree relative Sibling Patient's brother is in good health No family history of malignant neoplasm Father Family history of heart disease in male family member before age 55 Other Diabetes mellitus Family history of cardiovascular disease Family history of malignant neoplasm of breast Social History Social Hist
== END 2021-11-24 20:11 | disposition home or self-care (01) ==
PROVIDERS: Emergency Provider Nurse Practitioner Family; PCP Family Medicine
DX: L97.519 Non-pressure chronic ulcer of other part of right foot with unspecified severity (principal); I10 Essential (primary) hypertension; E66.01 Morbid (severe) obesity due to excess calories; Z68.43 Body mass index [BMI] 50.0-59.9, adult; G62.9 Polyneuropathy, unspecified; M19.90 Unspecified osteoarthritis, unspecified site
CPT/HCPCS: 99213; G0463

== ENCOUNTER 2021-11-27 18:15 | Emergency (ER) | payer OTHER, SELFPAY ==
[2021-11-27 18:24] VITALS: BP 134/71; PULSE 76; RESP 16; TEMP 36.8; O2SAT 100
[2021-11-27 18:32] VITALS: BP 134/71; PULSE 76; RESP 16; TEMP 36.8; O2SAT 100
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
== END 2021-11-27 19:09 | disposition home or self-care (01) ==
PROVIDERS: Emergency Provider Nurse Practitioner Family; PCP Family Medicine
DX: S16.1XXA Strain of muscle, fascia and tendon at neck level, initial encounter (principal); V49.40XA Driver injured in collision with unspecified motor vehicles in traffic accident, initial encounter; I10 Essential (primary) hypertension; E66.01 Morbid (severe) obesity due to excess calories; Z68.43 Body mass index [BMI] 50.0-59.9, adult; M19.90 Unspecified osteoarthritis, unspecified site; G62.9 Polyneuropathy, unspecified
CPT/HCPCS: 99213; G0463

== ENCOUNTER → 2021-12-11 10:55 | Outpatient (CLI) | payer OTHER, SELFPAY ==
--- NOTE | ~2021-12-11 | XR_ITS ---
XR lumbar spine 2-3V DATE: 12/11/2021 11:13 INDICATION: Low back pain for years, worsening TECHNIQUE: AP, lateral, coned lateral lumbosacral views COMPARISON: 05/20/2019 lumbar spine FINDINGS: There is minimal levoscoliosis of the thoracolumbar spine. The lumbar vertebrae are normall y aligned. No fracture or bone destruction or spondylolisthesis. The lumbar pedicles are intact. The sacroiliac joints are normal. Lumbar and lumbosacral interspaces appear well preserved. Status post cholecystectomy. IMPRESSION: Minimal thoracolumbar levoscoliosis Reviewed, dictated and finalized at location B.
== END ==
PROVIDERS: PCP Family Medicine; Visit Provider Physician Assistant
DX: M54.59 Other low back pain (principal)
CPT/HCPCS: 72100

== ENCOUNTER 2021-12-17 10:27 | Outpatient (CLI) | payer OTHER, SELFPAY ==
--- NOTE | ~2021-12-17 | XR_ITS ---
EXAM: XR toe 3rd RT min 2V DATE: 12/17/2021 10:56 HISTORY: ULCER OF RT 3RD TOE . COMPARISON: None available. FINDINGS: Normal mineralization. No fracture or dislocation. No lytic or blastic lesion. Joint space s are maintained. Erosion in the distal tuft of the right third digit. Overlying soft tissue ulcer. IMPRESSION: Osteomyelitis of the right third distal tuft. Reviewed, dictated and finalized at location K.
[2021-12-17 11:38] LABS: Basophils Absolute Auto 0.1 K/mm3 (0.0-0.1); Basophils Percent Auto 0.5 % (0.2-1.2); Eosinophils Absolute Auto 0.1 K/mm3 (0-0.3); Eosinophils Percent Auto 0.6 % (0-4.4); Hematocrit 38.4 % (37.0-47.0); Hemoglobin 13.3 g/dL (12.0-15.0); Immature Granulocyte Absolute 0.15 K/mm3 (0.00-0.031); Immature Granulocyte Percent A 0.9 % (0-0.5); Lymphocytes Absolute Auto 3.79 K/mm3 (0.9-3.2); Lymphocytes Percent Auto 23.6 % (18.3-44.2); Mean Corpuscular HGB Conc 34.6 g/dl (32-36); Mean Corpuscular Hemoglobin 30.7 pg (26-34); Mean Corpuscular Volume 88.7 fl (80-100); Mean Platelet Volume 9.6 fl (7.4-10.4); Neutrophils Percent Auto 68.4 % (45.5-73.1); Platelet Count Result 329 k/mm3 (150-375); Red Blood Count 4.33 M/mm3 (4.2-5.4); Red Cell Distribution Width 13.4 % (11.5-14.5)
[2021-12-17 11:53] LABS: CRP < 0.5 mg/dL (<1.0)
[2021-12-17 12:13] LABS: Erythrocyte Sedimentation Rate 20 mm/hr (0-20)
== END 2021-12-17 10:28 | disposition home or self-care (01) ==
PROVIDERS: PCP Family Medicine; Visit Provider Podiatrist Foot & Ankle Surgery
DX: M86.171 Other acute osteomyelitis, right ankle and foot (principal)
CPT/HCPCS: 36415; 73660; 85025; 85652; 86140

== ENCOUNTER 2022-03-22 03:08 | Emergency (ER) | payer OTHER, SELFPAY ==
[2022-03-22 03:15] VITALS: BP 178/110; PULSE 97; RESP 18; TEMP 36.8; O2SAT 100
[2022-03-22] MEDS: ONDANSETRON HCL ODT 4 MG TABLET PO (05:57)
[2022-03-22 05:59] LABS: Appearance Urine Slightly Cloudy (Clear); Bilirubin Urine Negative (Negative); Blood Urine 2+ (Negative); Color Urine Yellow (Yellow); Glucose Urine UA Negative (Negative); Ketones Urine Negative (Negative); Leukocyte Esterase Ur Negative LEU/UL (Negative); Nitrate Urine Negative (Negative); Protein Urine 2+ mg/dL (Negative); Specific Grav Ur 1.015 (1.001-1.035)
[2022-03-22 06:02] LABS: Bacteria Urine Trace /hpf; Budding Yeast Urine Present /hpf; RBC Urine 21-50 /hpf (0-2); Squamous Epithelial Cell Urine Many /hpf (Few); WBC Urine 0-3 /hpf
[2022-03-22 06:06] LABS: Add Urine Microscopic? YES
[2022-03-22 06:07] LABS: Ethanol 146 mg/dL (<10)
[2022-03-22 06:15] LABS: Amphetamine Screen Urine Negative (Negative); Barbiturate Screen Urine Negative (Negative); Benzodiazepines Screen Urine Negative (Negative); Cannabinoid Screen Urine Negative (Negative); Cocaine Screen Urine Negative (Negative); Methadone Screen Urine Negative (Negative); Opiate Screen Urine Negative (Negative); Phencyclidine Screen Urine Negative (Negative)
[2022-03-22 06:16] LABS: Alanine Aminotransferase 38 U/L (6-35); Albumin Level 4.6 g/dL (3.5-5.1); Alkaline Phosphatase 87 U/L (38-126); Anion Gap 13 mmol/L (8-16); Aspartate Amino Transferase 43 U/L (14-36); Bilirubin,Total 0.7 mg/dL (0.2-1.3); Blood Urea Nitrogen 8 mg/dL (7-17); Calcium 8.9 mg/dL (8.4-10.2); Carbon Dioxide 23 mmol/L (22-30); Chloride 102 mmol/L (98-107); Estimated CRCL calculation 169 ml/min; Estimated Glomerular Filt Rate > 60; Glucose 127 mg/dL (65-110); Potassium 3.6 mmol/L (3.4-5.0); Sodium 138 mmol/L (137-145)
[2022-03-22 06:22] LABS: Basophils Absolute Auto 0.1 K/mm3 (0.0-0.1); Basophils Percent Auto 0.6 % (0.2-1.2); Eosinophils Percent Auto 0.3 % (0-4.4); Hemoglobin 14.7 g/dL (12.0-15.0); Immature Granulocyte Absolute 0.08 K/mm3 (0.00-0.031); Immature Granulocyte Percent A 0.8 % (0-0.5); Lymphocytes Absolute Auto 1.86 K/mm3 (0.9-3.2); Lymphocytes Percent Auto 19.1 % (18.3-44.2); Mean Corpuscular HGB Conc 34.2 g/dl (32-36); Mean Corpuscular Hemoglobin 30.9 pg (26-34); Mean Corpuscular Volume 90.5 fl (80-100); Mean Platelet Volume 9.7 fl (7.4-10.4); Monocytes Absolute Auto 0.6 K/mm3 (0.1-0.6); Monocytes Percent Auto 6.4 % (2.6-8.5); Neutrophils Absolute Auto 7.1 K/mm3 (1.3-6.7); Neutrophils Percent Auto 72.8 % (45.5-73.1); Platelet Count Result 284 k/mm3 (150-375); Red Blood Count 4.75 M/mm3 (4.2-5.4); Red Cell Distribution Width 13.2 % (11.5-14.5); White Blood Count 9.7 K/mm3 (4.5-10.0)
[2022-03-22 06:32] LABS: Influenza A QL RT-PCR Negative (Negative); Influenza B QL RT-PCR Negative (Negative); SARS-CoV-2 RNA PCR Negative
[2022-03-22 06:41] LABS: Thyroid Stimulating Hormone 0.987 uIU/mL (0.465-4.680)
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
[2022-03-22 08:48] LABS: Ethanol 63 mg/dL (<10)
[2022-03-22 12:33] VITALS: PULSE 88; RESP 16; O2SAT 96
== END 2022-03-22 12:36 | disposition home or self-care (01) ==
PROVIDERS: Emergency Medicine; Emergency Provider Preventive Medicine Aerospace Medicine; PCP Family Medicine
DX: F10.94 Alcohol use, unspecified with alcohol-induced mood disorder (principal); Y90.6 Blood alcohol level of 120-199 mg/100 ml; Z20.822 Contact with and (suspected) exposure to COVID-19; I10 Essential (primary) hypertension; G62.9 Polyneuropathy, unspecified; M19.90 Unspecified osteoarthritis, unspecified site; E66.01 Morbid (severe) obesity due to excess calories; Z68.42 Body mass index [BMI] 45.0-49.9, adult; Z90.710 Acquired absence of both cervix and uterus; Z79.84 Long term (current) use of oral hypoglycemic drugs
CPT/HCPCS: 36415; 80053; 80307; 81001; 84443; 85025; 87636; 99284; A9270

== ENCOUNTER 2024-11-28 13:28 | Emergency (ER) | payer OTHER, SELFPAY ==
--- NOTE | ~2024-11-28 | XR_ITS ---
EXAM/ PROCEDURE: XR elbow LT min 3V - 11/28/2024 14:35 CDT HISTORY: 49 years old Female with left elbow pain, fall COMPARISON: None available TECHNIQUE: Three view(s) FINDINGS/ IMPRESSION: There are no fractures or dislocations.Joint spaces are within normal limits. Reviewed, dictated and finalized at location A.
--- NOTE | ~2024-11-28 | XR_ITS ---
HISTORY: left wrist pain, fall COMPARISON: None TECHNIQUE: 3 views of the left wrist were performed. FINDINGS: No acute fracture is identified. The carpal arcs are intact. Mild radiocarpal joint space narrowing with sclerosis of the distal radius is present. The remaining visualized joint spaces are otherwise preserved. Trace negative ulnar variance is detected. Bone mineralization is age-appropriate No significant soft tissue swelling is noted. No radiopaque foreign body is identified. IMPRESSION: No acute fracture or dislocation. Reviewed, dictated and finalized at location A.
[2024-11-28 13:30] VITALS: BP 152/89; PULSE 90; RESP 16; TEMP 36.7; O2SAT 100
--- OUTSIDE RECORDS SUMMARY | 2024-11-28 13:44 | XMS_ITS | Encounter Summary ---
Author Organization [facility] Healthcare Address [address] [place] [address] Care Team Providers Care Critical Care Educator Name Role Phone Alphonso Cagle MD Unavailable Kayleen ManzanoW Unavailable [phone] Priyanka Leo NP Unavailable Marcy Gutiérrez NP Primary Care Provider [phone] Pily JacksonM Unavailable [phone] Encounter Details Date Type Department Care Team (Late st Contact Info) Description 10/16/2024 Results Follow-Up [facility] Family Medicine at [address] [place] [address] Marcy Gutiérrez NP [address] [place] [address] [address] [place] [address] CT Abdomen Pelvis W Contrast Social History Tobacco Use Types Packs/Day Years Used Date Smoking Tobacco: Never Smokeless Tobacco: Never Alcohol Use Standard Drinks/Week Comments Not Currently 0 (1 standard drink = 0.6 oz pur e alcohol) [facility] Utilities Answer Date Recorded In the past 12 months has [employer] electric, gas, oil, or water company threatened to shut off services in your home? No 12/29/2023 Social Connection and Isolation Panel Answer Date Recorded In a typical week, how many times do you talk on the phone with family, friends, or neighbors? More than three times a week 12/29/2023 How often do you get togethe r with friends or relatives? More than three times a week 12/29/2023 How often do you attend chur ch or zoroastrianism services? 1 to 4 times per year 12/29/2023 Do you belong to any clubs o r organizations such as buddhism groups, unions, fraternal or athletic groups, or school groups? No 12/29/2023 How often do you attend meet ings of the clubs or organizations you belong to? Never 12/29/2023 Are you , , di vorced, , never , or living with a partner? 12/29/2023 AUDIT-C Answer Date Recorded Q1: How often do you have a drink containing alcohol? Never 08/15/2024 Q2: How many drinks containi ng alcohol do you have on a typical day when you are drinking? Patient does not drink Q3: How often do you have si x or more drinks on one occasion? Never 08/15/2024 Overall Financial Resource Strain (CARDIA) Answe r Date Recorded How hard is it for you to pa y for the very basics like food, housing, medical care, and heating? Hard 12/29/2023 PHQ-2 Answer Date Recorded PHQ-2 Total Score (If total score is 3 or more points, staff should administer the PHQ-9) 0 11/29/2023 Hunger Vital Sign Answer Date Recorded Within the past 12 months, y ou worried that your food would run out before you got the money to buy more. Never true 12/29/19 24 Within the past 12 months, t he food you bought just didn't last and you didn't have money to get more. Never true 12/29/2023 PRAPARE - Transportation Answer Date Re corded In the past 12 months, has l ack of transportation kept you from medical appointments or from getting medications? No 12/11 In the past 12 months, has l ack of transportation kept you from meetings, work, or from getting things needed for daily living? No 12/29/2023 Housing Stability Vital Sign Answer Johnnie e Recorded In the last 12 months, was t here a time when you were not able to pay the mortgage or rent on time? No 08/07/2022 Number of Places Lived in the Last Year Not on f ile 08/07/2022 In the last 12 months, was t here a time when you did not have a steady place to sleep or slept in a prison (including now)? No 08/07/2022 PHQ-9 Answer Date Recorded PHQ-9 Total Score 0 09/02/2023 Housing Stability Vital Sign Answer Johnnie e Recorded In the last 12 months, was t here a time when you were not able to pay the mortgage or rent on time? No 12/29/2023 In the past 12 months, how m any times have you moved where you were living? 1 12/29/2023 At any time in the past 12 m [facility], were you homeless or living in a prison (including now)? No 12/29/2023 Personal Safety Answer Date Recorded Have you ever been in or are you currently in a harmful physical or emotional relationship or is someone making you feel afraid or unsafe? 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 difficile 06/28/2024 06/28/2024 documented as of this encounter Care Teams Critical Care Educator Relationship Specialty Start Date End Date Marcy Gutiérrez NP [address] [place] [address] PR[place] Luciano [id number] PCP - General Family Medicine 04/13/24 Alphonso Cagle MD Family Medicine 06/16/22 Kayleen Manzano, BUSINESS TRAVEL CONSULTANT [address] [facility] [place] [address] Reconstructive Surgeon 12/29/23 11/07/24 Priyanka Leo NP [address] [place] [address] PRASH[place] Luciano [id number] Nurse Practitioner Family Medicine 03/06/24 Pily Jackson DPM [address] [place] [id number] Consulting Physician Foot and Ankle Surg 11/21/24 documented as of this encounter
--- OUTSIDE RECORDS SUMMARY | 2024-11-28 13:44 | XMS_ITS | Clinical Summary ---
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 Gender Identity Not on file Sexual Orientation Not on file Plan of Treatment Health Maintenance Due Date Last Done Comments Hepatitis C Virus (HCV) Screening 1977 Pap Smear 1998 Cervical Cancer Screening (CCS) 2007 HPV/Cotest 2007 Hepatitis B Immunization (3 of 3 - 19+ 3-dose series) 03/24/2013 10/24/2012, 10/21/2012, 09/22/2012 Cologuard 2022 Colonoscopy 2022 Colorectal Cancer Screening 2022 Immunochemical Fecal Occult Blood 2022 SARS-COV-2 Immunization ( season) 2023 11/09/2020 Influenza Immunization (#1) 2024 Respiratory Syncytial Virus (RSV) Immunization (Adult) (1 - 1-dose 75+ series) 01/21/2052 DTaP/Tdap/Td Immunization Discontinued 06/24/2016 TdaP Immunization Completed 06/24/2016 Human Papillomavirus (HPV) Immunization Aged Out No longer eligible based on patient's age to complete this topic Meningococcal Immunization (ACWY) Aged Out No longer eligible based on patient's age to complete this topic Pneumococcal Immunization Combined Aged Out No longer eligible based on patient's age to complete this topic Rotavirus Immunization Aged Out No lo nger eligible based on patient's age to complete this topic Insurance MEDICAID [employer] Care Teams Certified Scrum Master Relationship Specialty Start Date End Date Emilia Cabrera MD [address] [place] [phone] PCP - General Family Medicine 06/07/19
--- OUTSIDE RECORDS SUMMARY | 2024-11-28 13:45 | XMS_ITS | Clinical Summary ---
Author Organization [facility] Address [address] [place] [address] Care Team Providers Care Manager Federal Name Role Phone Alphonso Cagle MD Primary Care Provider [phone] Source Comments [facility] Affiliates and Associated Physician Practices is amultiple site organization consisting of ambulatory clinics and hospital sitesin [place], [place], [place] and [place]. This disclosure is being madepursuant to the Care Everywhere program and may not contain all information available regarding this patient. 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 Gender Identity Not on file Sexual Orientation Not on file Plan of Treatment Health Maintenance Due Date Last Done Comments COLOGUARD (AGES 45-75) - COL ON CA SCREENING 1977 COLON MONITORING 1977 COLONOSCOPY - COLON CA SCREENING 1977 CT COLONOGRAPHY - COLON CA SCREENING 1977 Colorectal Cancer Screening 1977 FIT - COLON CA SCREENING 1977 FLEX SIG - COLON CA SCREENING 1977 LIPID TESTING 1977 MAMMOGRAM 1977 HIV SCREENING 01/21/1992 HEPATITIS C SCREENING 01/16/1995 DTAP/TDAP/TD VACCINES (1 - Tdap) 01/21/1996 HEPATITIS B VACCINE (1 of 3 - 19+ 3-dose series) 01/21/1996 PAP SMEAR 1998 COVID-19 VACCINE (2023-2 5 season) 2023 DEPRESSION SCREENING 04/12/2024 INFLUENZA VACCINE (#1) 2024 ZOSTER VACCINE (1 of 2) 2027 HIB VACCINE Aged Out No longer eligi ble based on patient's age to complete this topic HPV VACCINE Aged Out No longer eligi ble based on patient's age to complete this topic MENINGOCOCCAL (Group B) VACC INE SHARED DECISION-MAKING Aged Out No longer eligibl e based on patient's age to complete this topic MENINGOCOCCAL GROUPS A/C/Y/W VACCINE Aged Out No longer eligible b ased on patient's age to complete this topic PNEUMOCOCCAL VACCINE Aged Out No long er eligible based on patient's age to complete this topic Insurance [facility] Care Teams Manager Federal Relationship Specialty Start Date End Date Alphonso Cagle MD [facility] [place] [address] PCP - General Family Medicine 09/21/23
--- OUTSIDE RECORDS SUMMARY | 2024-11-28 13:45 | XMS_ITS | Clinical Summary ---
Author Organization [facility] [address] Address [address] [place] [id number] Care Team Providers Care Dba Manager Name Role Phone Alphonso Cagle MD Unavailable [phone] Priyanka Leo NP Unavailable [phone] Marcy Gutiérrez NP Primary Care Provider [phone] Pily JacksonM Unavailable [phone] Allergies Active Allergy Reactions Criticality Noted Date Comments Amlodipine Hives Medium 08/20/2020 Cefadroxil Rash Medium 08/19/2023 Rosuvastatin Muscle pain,Fatigue Medium 11/10/2024 Morphine Itching,Shortness of breath,Stomach upset,Swelling High 11/25/2022 Nitrofurantoin Monohyd/M-Cryst Rash,Unknown Medium 08/20/2020 Prochlorperazine Anxiety,Unknown High 05/16/2017 Metoclopramide Hives Medium 12/26/2021 I GOT A RASH/HIVES, AND IT MADE ME ANXIOUS Sulfa (Sulfonamide Antibiotics) Rash,Unknown High 07/30/2021 Medications aspirin 81 mg chewable tabletIndications: Pt reports after hysterectomy and during hospitalization, Pt developed multiple superficial lower extremity blood clots and was told to start taking a daily ASA. Take 1 tablet (81 mg total) by mouth daily Active acetaminophen (TYLENOL) 325 mg tabletIndications: Fever,Pain Take 2 tablets (650 mg total) by mouth every 4 (four) hours as needed for pain 30 tablet 1 024 Active lisinopriL (PRINIVIL,ZESTRIL) 10 mg tablet TAKE 1 TABLET(10 MG) BY MOUTH DAILY 90 tablet [address] (PROTONIX) 40 mg EC tabletIndications: Gastroesophageal reflux disease without esophagitis Take 1 tablet (40 mg total) by mouth daily 90 tablet 1 024 Active naloxone (NARCAN) 4 mg/actuation spray,non-aerosol Administer 1 spray into affected nostril(s) as needed for opioid reversal or respiratory depression Call 911. Administer a single spray in one nostril. Repeat every 3 minutes as needed if no or minimal response. 1 each 024 Active fluticasone propionate (FLONASE) 50 mcg/actuation nasal sprayIndications:P ost-nasal drip Administer 2 sprays into each nostril daily Cade 1 spray each nare twice a day x7 days, then daily as needed. 3 each 4 024 Active diazePAM (DIASTAT) 2.5 mg kitIndications:Acu te Repetitive Seizures Insert 2.5 mg into the rectum 2 (two) times a day as needed (Hemorrhoidal pain) 1 kit 1 024 Active ipratropium-albute roL (DUO-NEB) 0.5-2.5 mg/3 mL nebulizer solutionIndication s:Influenza A Take 3 mL by nebulization 4 (four) times a day as needed for wheezing or shortness of breath 90 mL 025 Active nebulizer accessories kitIndications:Inf luenza A 1 kit 4 (four) times a day 1 kit 025 Active amitriptyline (ELAVIL) 50 mg tablet Take 1 tablet (50 mg total) by mouth nightly 90 tablet 1 025 2024 Active gabapentin (NEURONTIN) 300 mg capsule Take 300mg in AM and Noon. Take 600mg at bedtime. 120 capsule 3 025 Active cyclobenzaprine (FLEXERIL) 10 mg tabletIndications: Charcot arthropathy of midfoot,Spasm,Pain of left hip TAKE 1 TABLET(10 MG) BY MOUTH THREE TIMES DAILY NEEDED FOR MUSCLE SPASMS 90 tablet 3 025 Active cetirizine (ZyrTEC) 10 mg tablet TAKE 1 TABLET BY MOUTH EVERY DAY 90 tablet 025 Active polyethylene glycol (MIRALAX) 17 gram/dose bulk powderIndications: Irritable bowel syndrome with constipation Take 17 g by mouth daily 238 g 025 Active ondansetron ODT (ZOFRAN-ODT) 4 mg disintegrating tabletIndications: Charcot arthropathy of midfoot DISSOLVE 1 TO 2 TABLETS ON THE TONGUE EVERY 8 HOURS NEEDED FOR NAUSEA OR VOMITING 60 tablet 1 025 Active Saccharomyces boulardii (FLORASTOR) 250 mg capsule Take 1 capsule (250 mg total) by mouth 2 (two) times a day 180 capsule 3 025 Active fidaxomicin (DIFICID) tabletIndications: Clostridioides difficile infection Take 1 tablet (200 mg total) by mouth 2 (two) times a day 20 tablet 025 Active baclofen (LIORESAL) 20 mg tablet Take 1 tablet (20 mg total) by mouth 3 (three) times a day 120 tablet 025 Active ergocalciferol (VITAMIN D) 50,000 unit capsule Take 1 capsule (50,000 Units total) by mouth once a week 12 capsule 1 025 Active naproxen (NAPROSYN) 500 mg tabletIndications: Anti-inflammatory, Pain Take 1 tablet (500 mg total) by mouth 2 (two) times a day with meals 60 tablet 1 025 Active nystatin cream Apply topically 2 (two) times a day as needed (cutaneous candidiasis) 30 g 2 025 Active montelukast (SINGULAIR) 10 mg tabletIndications: Mild intermittent asthma without complication TAKE 1 TABLET(10 MG) BY MOUTH EVERY NIGHT 90 tablet 1 025 Active albuterol HFA (PROVENTIL HFA,VENTOLIN HFA,PROAIR HFA) 90 mcg/actuation inhaler INHALE 2 PUFFS BY MOUTH EVERY 6 HOURS NEEDED FOR SHORTNESS OF BREATH 8.5 g 1 025 Active metFORMIN XR (GLUCOPHAGE XR) 500 mg 24 hr tabletIndications: Class 3 severe obesity due to excess calories without serious comorbidity with body mass index (BMI) of 50.0 to 59.9 in adult Take 2 tablets (1,000 mg total) by mouth daily with breakfast 180 tablet 1 025 Active lactulose solution 10 gram/15mL 30 cc daily 473 mL 2 025 Active potassium chloride ER (KLOR-CON) 20 mEq CR tabletIndications: Spasm Take 3 tablets (60 mEq total) by mouth daily 180 tablet 2 025 Active linaCLOtide (Linzess) 72 mcg capsule Take 1 capsule (72 mcg total) by mouth daily 90 capsule 1 025 Active fenofibrate nanocrystallized (TRICOR) 145 mg tablet Take 1 tablet (145 mg total) by mouth daily 90 tablet 1 025 2025 Active oxyCODONE ER (OxyCONTIN) 20 mg 12 hr abuse-deterrent tabletIndications: Charcot arthropathy of midfoot,Amputation of toe of left foot,Acquired hallux rigidus of left foot Take 1 tablet (20 mg total) by mouth every 12 (twelve) hours 60 tablet 025 Active oxyCODONE (ROXICODONE) 15 mg immediate release tabletIndications: Pain Take 1 tablet (15 mg total) by mouth every 6 (six) hours as needed for pain 115 tablet 025 Active miscellaneous medical supply miscIndications:Ly mphedema,Charcot arthropathy of midfoot,Neuropathy ,Osteoarthritis of knee, unspecified laterality, unspecified osteoarthritis type One shower stool 1 each 025 Active lidocaine (LIDODERM) 5 %Indications:Pain of left hip PLACE 2 PATCHES ONTO THE AFFECTED AREA TOPICALLY. LEAVE ON FOR 12 HOURS, REMOVE, THEN LEAVE OFF FOR 12 HOURS 90 patch 4 025 Active furosemide (LASIX) 80 mg tabletIndications: Charcot arthropathy of midfoot TAKE 1 TABLET(80 MG) BY MOUTH DAILY 90 tablet 1 025 Active losartan (COZAAR) 25 mg tablet losartan 25 mg tablet TK 1 T PO QD 2021 Discontinued(O ther) magnesium citrate solution magnesium citrate oral solution 1/2 bottle po x 1, repeat in 2 days if needed prn constipation 2021 Discontinued(O ther) potassium chloride ER (KLOR-CON) 20 mEq CR tabletIndications: Spasm Take 3 tablets (60 mEq total) by mouth daily 180 tablet 3 024 2024 Discontinued(R eorder) lidocaine (LIDODERM) 5 %Indications:Pain of left hip Place 2 patches on the skin daily Apply to painful area 12 hours per day, remove for 12 hours. 90 patch 4 024 2024 Discontinued metFORMIN XR (GLUCOPHAGE XR) 500 mg 24 hr tabletIndications: Class 3 severe obesity due to excess calories without serious comorbidity with body mass index (BMI) of 50.0 to 59.9 in adult Take 2 tablets (1,000 mg total) by mouth daily with breakfast 180 tablet 1 025 2024 Discontinued(R eorder) furosemide (LASIX) 80 mg tabletIndications: Charcot arthropathy of midfoot Take 1 tablet (80 mg total) by mouth daily 90 tablet 1 025 2024 Discontinued fluconazole (DIFLUCAN) 150 mg tablet Take 1 tab by mouth today then repeat dose in 3 days 2 tablet 025 2024 Discontinued(T herapy completed) torsemide (DEMADEX) 20 mg tabletIndications: Charcot arthropathy of midfoot Take 1 tablet (20 mg total) by mouth daily for 10 days 10 tablet 025 2024 Discontinued(T herapy completed) guaiFENesin-codein e (GUAITUSS AC) liquid 100-10 mg/5 mLIndications:Recu rrent sinusitis Take 10 mL by mouth every 4 (four) hours as needed for cough 120 mL 025 2024 Discontinued(T herapy completed) rosuvastatin (CRESTOR) 10 mg tablet Take 1 tablet (10 mg total) by mouth daily 90 tablet 025 2024 Discontinued(P atient Reported) oxyCODONE ER (OxyCONTIN) 15 mg 12 hr abuse-deterrent tablet Take 1 tablet (15 mg total) by mouth 2 (two) times a day 60 tablet 025 2024 Discontinued(T herapy completed) oxyCODONE (ROXICODONE) 10 mg tabletIndications: Pain Take 1 tablet (10 mg total) by mouth every 6 (six) hours as needed for pain (breakthrough pain) 115 tablet 025 2024 Discontinued(T herapy completed) miscellaneous medical supply miscIndications:Ly mphedema,Charcot arthropathy of midfoot,Neuropathy ,Osteoarthritis of knee, unspecified laterality, unspecified osteoarthritis type One shower chair 1 each 025 2024 Discontinued Active Problems Problem Noted Date Diagnosed Date RLS (restless legs syndrome) 07/25/2024 Assessment & Plan (07/25/2024 8:05 PM CDT): Not at goal D/C Requip d/t s/e Stop Lyrica. Change to gabapentin 300mg AM and noon, 600mg HS Recurrent Clostridioides difficile diarrhea 06/12 Assessment & Plan (07/12/2024 12:33 PM CDT): Check labs Opioid-induced constipation 06/05/2024 Assessment & Plan (11/10/2024 1:03 PM CDT): Chronic opioid-induced constipation with associated abdominal pain and rectal bleeding. Previous treatment with lactulose and magnesium citrate was ineffective. Linzess was previously effective but not approved by insurance. Abdominal pain may be related to constipation and hernias. GI appointment scheduled for further evaluation. - Chronic, worsening - Previously failed on metamucil, benefiber, Miralax, Senna, Colace, bisacodyl, magnesium citrate, and lactulose. Movantik denied. Linzess samples were only effective treatment thus far. - Follow up with GI appointment on December [address] Negrete - Continue increased fluid and fiber intake, increase physical activity Assessment & Plan (06/05/2024 9:54 PM GORE CUTTER): - Chronic, uncontrolled without Linzess. Linzess denied by pt insurance - Initiate Movantik 25 mg daily - Ensure adequate fluid and fiber intake - Follow up in three weeks Other insomnia 04/13/2024 Assessment & Plan (04/13/2024 4:18 PM GORE CUTTER): Not at goal Preventive patient from being active during day due to fatigue Increase amitriptyline to 25 mg HS May also help patient with chronic pain thus improving mobility as well and promoting weight loss Hepatomegaly 03/29/2024 Assessment & Plan (03/29/2024 9:05 AM GORE CUTTER): - Incidentally noted on abdominal CT at recent ER visit - CT also noted significant hepatic steatosis - Obtain right upper quadrant ultrasound for further evaluation - Most recent CMP with normal liver enzymes Hemorrhoids 03/29/2024 Assessment & Plan (05/08/2024 4:07 PM GORE CUTTER): - Chronic, improved with use of diazepam rectal ointment Assessment & Plan (04/11/2024 12:54 PM GORE CUTTER): - Reports improvement with use of diazepam rectal cream - Continue diazepam 2.5 mg rectal kit twice daily as needed - Ensure adequate fluid intake, follow high-fiber diet to prevent constipation which can in turn worsen hemorrhoids - Continue MiraLax 17 g daily Assessment & Plan (03/29/2024 9:08 AM GORE CUTTER): - Recent exacerbation resolved - Patient reports use of preparation H ointment in past with minimal relief - Initiate diazepam 2.5 mg rectal kit twice daily as needed - Ensure adequate fluid intake, follow high-fiber diet to prevent constipation which can in turn worsen hemorrhoids - Continue MiraLax 17 g daily, reports Linzess was denied by insurance - Consider additional daily stool softener with continued symptoms Encounter for weight management 02/29/2024 Assessment & Plan (08/15/2024 2:34 PM CDT): Weight: 323.0 BMI: 53.8 Body Fat: 74.1 Skeletal Muscle: 15.1 Fat-Free Mass: 83.6 SQ Fat: 63.8 Visceral Fat: 30 Body Water: 17.8 Muscle Mass: 78.4 Bone Mass: 5.2 Protein: 5 Assessment & Plan (07/25/2024 2:45 PM CDT): Weight: 318.4 BMI: 53 Body Fat: 72.9 Skeletal Muscle: 15.8 Fat-Free Mass: 86.2 SQ Fat: 62.6 Visceral Fat: 30 Body Water: 18.6 Muscle Mass: 81.2 Bone Mass: 5 Protein: 5 Assessment & Plan (07/12/2024 12:33 PM CDT): Weight: 320.6 BMI: 59.0 Body Fat: 75 Skeletal Muscle: 14.6 Fat-Free Mass: 80.2 SQ Fat: 64.6 Visceral Fat: 30 Body Water: 17.2 Muscle Mass: 75.4 Bone Mass: 4.8 Protein: 5. Assessment & Plan (06/27/2024 3:46 PM CDT): Weight: 320.8 BMI: 53.4 Body Fat: 73.5 Skeletal Muscle: 15.4 Fat-Free Mass: 85 SQ Fat: 63.2 Visceral Fat: 30 Body Water: 18.2 Muscle Mass: 79.8 Bone Mass: 5.2 Protein: 5 Assessment & Plan (05/30/2024 2:38 PM GORE CUTTER): Does not have functioning scale at home Unable to come in d/t weather Assessment & Plan (05/16/2024 1:06 PM GORE CUTTER): Weight: 316.4 BMI: 52.7 Body Fat: 72.4 Skeletal Muscle: 16.1 Fat-Free Mass: 87.4 SQ Fat: 62.1 Visceral Fat: 30 Body Water: 18.9 Muscle Mass: 82.0 Bone Mass: 5.4 Protein: 5.0 Assessment & Plan (04/27/2024 5:16 PM GORE CUTTER): Weight: 316.2 BMI: 52.7 Body Fat: 72.4 Skeletal Muscle: 16.1 Fat-Free Mass: 87.2 SQ Fat: 62.0 Visceral Fat: 30 Body Water: 19.0 Muscle Mass: 82.2 Bone Mass: 5.4 Protein: 5.0 Assessment & Plan (04/13/2024 4:17 PM GORE CUTTER): Weight: 316 BMI: 52.6 Body Fat: 72.3 Skeletal Muscle: 16.1 Fat-Free Mass: 87.6 SQ Fat: 62 Visceral Fat: 30 Body Water: 19 Muscle Mass: 82.2 Bone Mass: 5.4 Protein: 5 Assessment & Plan (03/22/2024 1:36 PM GORE CUTTER): Weight: 314.2 BMI: 52.3 Body Fat: 71.7 Skeletal Muscle: 16.5 Fat-Free Mass: 89 SQ Fat: 61.4 Visceral Fat: 30 Body Water: 19.4 Muscle Mass: 83.6 Bone Mass: 5.4 Protein: 5 Assessment & Plan (03/15/2024 1:09 PM GORE CUTTER): Weight: 317.2 BMI: 52.9 Body Fat: 72.5 Skeletal Muscle: 16 Fat-Free Mass: 87 SQ Fat: 62.2 Visceral Fat: 30 Body Water: 18.9 Muscle Mass: 82.2 Bone Mass: 5.4 Protein: 5 Assessment & Plan (03/08/2024 8:51 PM GORE CUTTER): Improving! Weight: 312.8 BMI: 52.1 Body Fat: 71.4% Skeletal Muscle: 16.7% Fat-Free Mass: 89.4lb SQ Fat: 61.1% Visceral Fat: 30 Body Water: 19.6% Muscle Mass: 83.8lb Bone Mass: 5.4lb Protein: 5.0% Assessment & Plan (03/01/2024 11:37 AM GORE CUTTER): Treatment: Medication: None Specific Diet: start tracking Activity: working on HEP program from PT, chair exercises Stress: Lymphedema Water: 5x 16oz bottles Goals for next visit: 1-2lbs, start tracking diet, chair exercises Plan to discuss phentermine further at next visit Mild intermittent asthma without complication Assessment & Plan (02/09/2024 2:37 PM CDT): - stable, chronic - continue Singulair 10 mg nightly. Refill sent to patient pharmacy. Charcot arthropathy of midfoot 01/05/2024 Assessment & Plan (11/28/2024 1:00 PM CDT): Multiple toe amputations done by Dr. Gupta previously all have healed. No new wounds. Can follow up me as needed. Assessment & Plan (11/12/2024 10:26 PM CDT): inadequate relief from current pain management regimen. Previous increase in pain medication dosage did not provide significant relief. Plan to adjust medication regimen for better pain control. - Increase extended-release pain medication to 20 mg when current supply is nearly finished - Increase breakthrough oxycodone to 15 mg IR every 8 hours at next refill - Patient educated regarding risks of high doses of oxycodone including respiratory depression. Instructed on use of Narcan if needed for respiratory depression. Discussed other side effects such as increased constipation, drowsiness, and nausea. - Continue use of orthotic boot as prescribed - Continue Lyrica 150 mg twice daily, duloxetine DR 30 mg twice daily, cyclobenzaprine 10 mg t.i.d. p.r.n., and amitriptyline 10 mg nightly for pain Orders: Miscellaneous DME Assessment & Plan (08/22/2024 11:22 AM CDT): Not at goal Some improvement with toresemide Oxycontin ER increased to 15mg BID. 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 Paperwork sent to office to approve increase. Assessment & Plan (08/15/2024 2:57 PM CDT): Not at goal Add torsemide 20mg daily x10d Continue Lasix 80mg daily Pt to message in 1 week if pain not improved and will increase Oxycontin ER to 15mg BID Assessment & Plan (06/05/2024 9:53 PM GORE CUTTER): - Chronic, increased pain - Increase Oxy IR to 10 mg q6h PRN for breakthrough pain, continue Oxycodone ER 10 mg BID - Initiate Torsemide 20 mg daily, continue Lasix 80 mg daily - Obtain repeat CBC, CMP in one week. May need to increase potassium dosage. - LLE xray pending, ordered at last office visit - Report to ER with worsening symptoms Assessment & Plan (05/30/2024 2:40 PM GORE CUTTER): Not at goal Refer to genetics to r/o CMT disease Repeat XR Assessment & Plan (05/08/2024 4:07 PM GORE CUTTER): - Chronic, pain improving with extended release oxycodone but still needing breakthrough oxycodone 5 mg every 6 hours - Increase breakthrough oxycodone to 10 mg IR every 8 hours - Patient educated regarding risks of high doses of oxycodone including respiratory depression. Instructed on use of Narcan if needed for respiratory depression. Discussed other side effects such as increased constipation, drowsiness, and nausea. - Continue physical therapy - Continue use of orthotic boot as prescribed - Continue Lyrica 150 mg twice daily, duloxetine DR 30 mg twice daily, cyclobenzaprine 10 mg t.i.d. p.r.n., and amitriptyline 10 mg nightly for pain Assessment & Plan (04/11/2024 12:53 PM GORE CUTTER): - Chronic, pain uncontrolled - Extended release oxycodone 2nd appeal denied - Increase immediate release oxycodone to 20 mg every 6 hours. Patient educated regarding risks of high doses of oxycodone including respiratory depression. Instructed on use of Narcan if needed for respiratory depression. Discussed other side effects such as increased constipation, drowsiness, and nausea. - Prior authorization of fentanyl 25 mcg per hour transdermal patch denied. We will attempt. Appear evaluation. - Continue physical therapy - Continue use of orthotic boot as prescribed - Continue Lyrica 150 mg twice daily, duloxetine DR 30 mg twice daily, cyclobenzaprine 10 mg t.i.d. p.r.n., and amitriptyline 10 mg nightly for pain Assessment & Plan (03/29/2024 9:05 AM GORE CUTTER): - Chronic, pain uncontrolled - Extended release oxycodone 2nd appeal denied - Refill of Oxy IR sent yesterday - Awaiting prior authorization of fentanyl 25 mcg per hour transdermal patch every 72 hours for pain - Continue physical therapy - Continue use of orthotic boot as prescribed - Continue Lyrica 150 mg twice daily, duloxetine DR 30 mg twice daily, cyclobenzaprine 10 mg t.i.d. p.r.n., and amitriptyline 10 mg nightly for pain Assessment & Plan (03/16/2024 2:07 PM GORE CUTTER): - Not at goal - Using boot as prescribed but continues to have substantial pain - Given chronicity of condition, resubmit appeal for oxycodone ER 10mg BID - Continue oxy IR 10mg q6h PRN at this time while awaiting second appeal - UDS appropriate on 02/17/24 - CSA signed 02/17/24 - [place] PDMP reviewed 02/17/24 Assessment & Plan (02/17/2024 7:55 PM GORE CUTTER): Not at goal Using boot as prescribed but continues to have substantial pain Given chronicity of condition, start on oxycodone ER 10mg BID with oxy IR 10mg q6h PRN breakthrough Discussed proper use of breakthrough meds UDS appropriate on 02/17/24 CSA signed 02/17/24 [place] PDMP reviewed 02/17/24 Assessment & Plan (02/09/2024 2:36 PM CDT): - MRI with worsening bone destruction. No osteomyelitis. - patient reports pain still 10 out 10, no improvement with Ridge 7.5-325 mg q6h PRN - change Ridge 7.5- 325 mg q.6 hours p.r.n. to oxycodone 10 mg q.6 hours p.r.n.. Add Tylenol 1000 mg every 6 hours as needed - initiate amitriptyline 10 mg nightly - continue Cymbalta 30 mg twice daily - continue Requip 0.5 mg 3 times a day, baclofen 10 mg 3 times a day Lyrica 75 mg twice a day, Flexeril 10 mg 3 times a day - continue follow-up with Wound Care - Charcot boot as prescribed - continue follow-up with Podiatry - follow-up in 3-4 weeks. If no improvement in pain we will need pain management consult for further evaluation and treatment. Assessment & Plan (01/05/2024 2:46 PM CDT): Not at goal Refer to podiatry Advised of MRI results. Discussed WBC normal so not likely osteomyelitis. MRI results addended to correct laterality. Too much swelling for NCS/EMG Continue Lyrica 75mg BID, Ultram 100mg TID PRN, Flexeril 10mg TID PRN Add baclofen 10mg TID PRN and requip 0.5mg TID Lymphedema 09/28/2023 Assessment & Plan (11/28/2024 1:02 PM CDT): Continue compression therapy, lymphedema pumps and lymphatic massage Assessment & Plan (11/12/2024 10:26 PM CDT): - Completed physical therapy - Wearing orthotic boot continuously - Still with increased pain, see above plan - Order shower chair Orders: Miscellaneous DME Assessment & Plan (03/14/2024 9:17 AM GORE CUTTER): Stable. No new wounds to the legs or the feet. Recommend continue compression therapy daily along with wearing of her pneumatic compression pumps twice daily for an hour. Patient remains compliant and agreeable. Discussed results of her NM lymphoscintigraphy. Answered all of her questions to her satisfaction. Lower extremities are warm well perfused well healed toe amputations. Discussed body habitus also a contributing factor to her lymphedema. States she is currently on therapy for weight loss. Plan: Continue compression therapy, frequent elevation of the legs, and a form of exercise throughout the day. Follow-up as needed Assessment & Plan (03/01/2024 11:38 AM GORE CUTTER): Not at goal Waiting on results from lymphedema study Assessment & Plan (02/17/2024 7:52 PM GORE CUTTER): Not at goal No improvement with lymphedema therapy No improvement with diuretics Given number to schedule NM lymph study before plastics will accept referral Refer to OT for motorized w/c eval Assessment & Plan (01/05/2024 2:44 PM CDT): Not at goal Waiting on insurance auth for compression pumps Starts PT on 01/10 Continue with wound care Has specialty [place]is shoes to be fitted Referral to podiatry Encourage compression and elevation Assessment & Plan (12/09/2023 1:30 PM CDT): Not improved Continues to have pain and swelling Taking Lasix 80mg BID Will trial short burst of Diamox x3 days to see if any extra fluid will come off Compression therapy ordered by vascular US duplex negative Keep f/u with vacular Increase gabapentin to 800mg daily Discussing lymphedema PT with GERMAIN Valenzuela Assessment & Plan (12/27/2023 1:54 PM CDT): Patient has significant chronic lymphedema with hyperpigmentation and pain, has been utilizing compression therapy 20-30 mm of mercury for greater than 4 weeks, leg elevation, and exercise without improvement of symptoms. Patient to obtain compression pump for further management of lower extremity edema. Even after the conservative therapy swelling in the legs continues to get worse. A lymphedema pump is necessary to help control swelling. Measurements: Foot Left: 36 cm Right: 32.5 cm Calf Left: 60.5 cm Right: 59 cm Assessment & Plan (11/23/2023 8:48 AM CDT): Not improved Start PT/lymphedema therapy when approved by vascular Diverticulitis 08/06/2022 Assessment & Plan (12/09/2023 1:31 PM CDT): Improving Has finished abx Refill Zofran to pharm Advise to notify office if pain, n/v/d worsens Assessment & Plan (12/06/2023 8:52 AM CDT): Not at goal Acute flare Continue Augmentin Soft/low residue diet while under acute flare, increase to high fiber diet after pain improves Diarrhea possibly d/t diverticulitis vs abx s/e Gastroesophageal reflux disease without esophagi tis 06/29/2022 Assessment & Plan (02/09/2024 2:36 PM CDT): - chronic, stable - continue Protonix 40 mg daily. Refill sent to patient pharmacy. Assessment & Plan (10/01/2022 1:01 PM CDT): Chronic GERD, well-controlled with PPI daily. -continue PPI daily -RECOMMENDATIONS given include: anti-reflux maneuvers, Avoid acidic foods like oranges and tomatoes., avoidance of spicy foods, avoid eating 3-4 hours before bed, elevation of the head of the bed, and weight loss Acquired hallux rigidus 12/23/2021 Assessment & Plan (11/12/2024 10:26 PM CDT): - See above plan Orders: Miscellaneous DME Anxiety 12/23/2021 Apnea 12/23/2021 Chronic idiopathic constipation 12/23/2021 Assessment & Plan (05/08/2024 4:05 PM GORE CUTTER): - Chronic, improved with Linzess at 72 mcg - Authorization pending with insurance. Patient given samples in office today. - Encouraged increase fluid and fiber intake Assessment & Plan (04/27/2024 3:49 PM GORE CUTTER): Not at goal Exacerbated by pain meds Preventing weight loss Previously failed on metamucil, benefiber, Miralax, Senna, Colace, bisacodyl New order for Linzess 72mcg Assessment & Plan (04/11/2024 12:51 PM GORE CUTTER): Improving Chronic idiopathic exacerbated by opioids for pain Failed Miralax daily Continue Linzess 72mcg daily Given sample while in office Assessment & Plan (03/15/2024 1:12 PM GORE CUTTER): Not at goal Chronic idiopathic exacerbated by opioids for pain Failed Miralax daily Start on Linzess 72mcg daily Given sample while in office Depressive disorder 12/23/2021 Hyperlipidemia 12/23/2021 Assessment & Plan (11/28/2024 1:01 PM CDT): Recommend statin therapy. Assessment & Plan (11/12/2024 10:26 PM CDT): Statin intolerance with previous side effects including insomnia and muscle aches from Crestor. Considering alternative treatment for hyperlipidemia with fenofibrate, which targets triglycerides and potentially improves cholesterol levels without the side effects associated with statins. - Discontinue Crestor 2/2 significant side effects - Prescribe fenofibrate 145 mg daily to target triglycerides and potentially improve cholesterol levels - Work on healthy diet and increasing physical activity. Reduce saturated fats in the diet, reduce fried/fast foods, refined carbs. Increase vegetables and fruit. Choose lean meats such as grilled chicken, fish, turkey. Anemia 12/23/2021 Irritable bowel syndrome 12/23/2021 Assessment & Plan (02/17/2024 7:53 PM GORE CUTTER): Stable Refill Miralax to pharm New order for GI referral to Dr. Velasquez per pt preference Menorrhagia 12/23/2021 Neoplasm of kidney 12/23/2021 Skin tag 12/23/2021 Vitamin D deficiency 12/23/2021 Amputation of toe of left foot 12/23/2021 Assessment & Plan (11/12/2024 10:26 PM CDT): - See above plan Orders: Miscellaneous DME Assessment & Plan (12/06/2023 8:51 AM CDT): Not at goal XR reviewed with patient EMG/NCS scheduled 12/30 Encourage to make earlier f/u with Dr. Gupta Continue Augmentin Assessment & Plan (11/23/2023 8:50 AM CDT): Not at goal Continues to have significant swelling and pain Increase gabapentin to 600mg TID, Ultram 100mg q8hr PRN Consider changing to Lyrica or adding Cymbalta/Elavil if pain continues Start PT/lymphedema therapy when cleared by vascular Encourage compression wraps/socks, elevate legs when possible Pt to message in 2 weeks, f/u in 1 month Assessment & Plan (10/26/2023 9:14 AM CDT): Not controlled Wound culture obtained while in office Continue treatments with wound care Keep f/u appt with Dr. Gupta on 11/01 Encourage compression/TONI wraps, elevate to help with edema Ultram 100mg Q8H PRN sent to pharm for pain, previously tolerated Assessment & Plan (04/10/2022 1:35 PM GORE CUTTER): Patient following up status post right 3rd toe amputation with debridement of the right foot due to osteomyelitis that was done 12/26/2021. The operative site has healed. She denies any pain or issues at this time. She currently has orthotics for her shoes. Seen with Dr. Gupta. Plan: Return as needed. Primary hypertension 07/30/2021 Assessment & Plan (11/28/2024 1:00 PM CDT): Stable continue losartan Assessment & Plan (11/23/2023 8:47 AM CDT): Stable BP Readings from Last 1 Encounters: 11/23/23 108/75 BP Goal: <64yo: <130/90, 65>: 140/90 Continue lisinopril 10mg BID, Lasix 80mg BID Assessment & Plan (01/29/2023 9:36 AM CDT): Impression: Chronic and stable. Plan: Continue lisinopril Leiomyoma of uterus, unspecified 07/30/2021 Neuropathy 04/23/2021 Assessment & Plan (12/28/2023 12:10 PM CDT): Not controlled Stop gabapentin 800mg TID Change to Lyrica 75mg BID- May need PA Referral to [facility]CO for help with disability forms Advised pt being prescribed a controlled substance. These drugs can be addictive and are closely monitored. Pt agrees to keep medications locked away and take only as prescribed. Pt cannot give away/sell medications to others. Pt understand local PDMP will be monitored and drug testing is at the providers discretion. Pill counts may be requested as well. Pt understands must be seen in office routinely for refills. Dystrophia unguium 02/20/2021 Class 3 severe obesity due t o excess calories without serious comorbidity with body mass index (BMI) of 50.0 to 59.9 in adult 10/04/2020 Assessment & Plan (08/15/2024 2:55 PM CDT): Treatment: Medication: Metformin and Bupropion Specific Diet: HighProteinLowCarb Activity: is walking less than 1000 steps. Has kept up with upper body as tolerated. Sleep: doing okay Stress: weight gain, pain, swelling Water: 6 bottles a day Assessment & Plan (07/25/2024 8:06 PM CDT): Treatment: Medication: Metformin and Bupropion, s/e Bupropion. Specific Diet: HighProteinLowCarb Activity: is walking and minimal activity, around 500 steps a day. Using motorized w/c at home Sleep: does not like Requip. Feels it causes excessive drowsiness. Stress: C.Diff infection Water: 7 bottles a day Goals for next visit: wait for bariatrics, continue working on protein content, Stop bupropion Assessment & Plan (07/12/2024 12:32 PM CDT): Treatment: Medication: Metformin, Bupropion, and not having issues Specific Diet: HighProteinLowCarb Activity: is walking limited, decreased due to cdiff Sleep: not great Stress: recent illness Water: 8 bottles a day Goals for next visit: get labs to check hormone levels, calories around 1000g, protein 50g Assessment & Plan (06/27/2024 3:45 PM CDT): Treatment: Medication: Metformin, Bupropion, and not currently able to tolerate medications Specific Diet: HighProteinLowCarb Activity: is walking as tolerated Sleep: lots d/t illness Stress: diarrhea Water: 2-3 bottles a day d/t illness Goals for next visit: feel better, less diarrhea, check CDiff test given recent abx Assessment & Plan (05/30/2024 2:38 PM GORE CUTTER): Treatment: Medication: Metformin and s/e with phentermine and topiramate, start bupropion Specific Diet: HighProteinLowCarb Activity: is walking and 300 steps. Focusing on upper body. Sleep: intermittent, good and bad nights. Reports pain has been worse lately. Stress: pain and swelling in legs Water: 5 bottles a day Goals for next visit: stop phentermine, start bupropion, check xray of LLE Assessment & Plan (05/16/2024 1:32 PM GORE CUTTER): Treatment: Medication: Metformin, Phentermine, and stopping phentermine d/t GI side effects, start Topamax Specific Diet: HighProteinLowCarb Activity: is walking and going to pool twice a week, has been doing upper body as tolerated Sleep: still not sleeping well. Stress: health problems Water: 7-8 bottles of water Goals for next visit: Stop phentermine, start on topiramate, 75g protein, as much mobility as possible Assessment & Plan (04/27/2024 5:15 PM GORE CUTTER): Treatment: Medication: Phentermine and did not know she should be taking metformin Specific Diet: HighProteinLowCarb Activity: is swimming, is walking, and doing upper body exercise. Was unable to keep swimming d/t bad weather. Sleep: Better with increase in Elavil but still wakes up at 3 and is unable to go back to sleep until 6 Stress: car problems, insurance le Water: 8 bottles per day Goals for next visit: 1849-7080 calories, 90 g of protein, decrease phentermine to 30 mg to decrease side effects. Restart metformin XR 1000 mg daily. Refer to bariatric given lack of weight loss. Assessment & Plan (04/13/2024 4:16 PM GORE CUTTER): Treatment: Medication: Phentermine and ran out, no issues with it though Specific Diet: HighProteinLowCarb Activity: is walking, doing upper body exercises, and Daily Steps count <3k Sleep: not sleeping as well d/t pain Stress: pain, finances Water: 8 bottles per day Goals for next visit: work on NEAT activity, calories 1400, protein 70-90. Assessment & Plan (03/22/2024 1:36 PM GORE CUTTER): Treatment: Medication: Phentermine tolerating well without side effects Specific Diet: HighProteinLowCarb Activity: is walking and has not started aquatic therapy, 10-15min upper body exercise BID Sleep: problems sleeping due to pain. Oxycodone will wear off early and patient will be unable to sleep. Stress: Pain Water: 4-6 bottles per day Goals for next visit: keep consistent with calories and proteins, start adding weight/resistance bands to daily activity and increase to TID Assessment & Plan (03/15/2024 1:09 PM GORE CUTTER): Medication: Phentermine and increase to 2 tablets daily as no side effects noted. Will refill with 37.5mg daily when needed. Specific Diet: HighProteinLowCarb Activity: is walking some, working with PT and will be doing aquatic therapy Stress: pain Water: 4-6 bottles a day Goals for next visit: start using tracking rosmer[employer] consistently, shop for healthier choices, increase phentermine Assessment & Plan (03/08/2024 8:49 PM GORE CUTTER): Treatment: Medication: None and Start on phentermine Specific Diet: HighProteinLowCarb Activity: is walking less than 1000 steps, doing chair exercises Stress: chronic health issues, filing for disability Water: 4-5 bottles Goals for next visit: find better protein foods, download tracking rosmery and start, pool membership to be more active Assessment & Plan (03/01/2024 11:37 AM GORE CUTTER): Not at goal Start tracking diet Short term goal: under 300lbs terminologist goal: 250lbs Assessment & Plan (02/09/2024 2:37 PM CDT): - BMI 52.75 - refill of metformin 500 mg twice daily sent to patient pharmacy - Try to cut back on calories. Most people should eat between 4957-7045 calories to lose weight. Decrease your carbohydrate intake to less than 100-150 grams per day if possible and increase protein to at least 100 grams per day help with hunger. Increase activity to 30 min 4-5 days a week and add strength training 2 times weekly. Assessment & Plan (01/29/2023 9:33 AM CDT): Impression Patient BMI is 49.92 Plan: Discussed with the patient the importance of lifestyle modifications to include diet and exercise. We will defer to primary care provider for further management. Osteoarthritis of knee 10/04/2020 Assessment & Plan (11/12/2024 10:26 PM CDT): - See above plan Orders: Miscellaneous DME Callus of toe 03/23/2020 Plantar wart of right foot 07/10/2019 Polycystic ovaries 07/12/2018 Resolved Problems Problem Noted Date Diagnosed Date Resolved Date Influenza A 06/12/2024 11/10/2024 Assessment & Plan (06/12/2024 9:04 AM GORE CUTTER): - POC influenza testing positive for influenza A - Unfortunately out of window for antiviral - Due to significant Rhonchi noted on auscultation, continue Augmentin prescribed last week - Initiate Prednisone 40 mg BID x 5 days - Initiate Duo-neb 3 ml QID PRN, continue PRN albuterol inhaler use as needed - Continue Guaituss AC q4h PRN for cough, refill sent to pt pharmacy. Initiate Tessalon 100 mg TID PRN for cough - Report back to office with worsening symptoms. If experiencing worsening SOB, CP, or fever over 102 not improved with Tylenol report to ER for further evaluation Pain and swelling of toe, right 05/08/2024 11/10/2024 Assessment & Plan (05/08/2024 4:08 PM GORE CUTTER): - Obtain STAT right foot x-ray for further evaluation - Further plan based upon x-ray results. If osteomyelitis noted we will need to be sent to emergency room for further evaluation. Open wound of toe 04/11/2024 11/10/2024 Assessment & Plan (04/11/2024 12:55 PM GORE CUTTER): - Acute - Obtain x-ray of right foot for further evaluation given history of osteomyelitis in the foot - Initiate Bactroban 2% ointment 3 times daily. Patient instructed to cleanse area with soap and water and dry thoroughly prior to application. Do this for at least a week. Patient to report back to office with worsening symptoms Acute bronchitis 03/29/2024 04/27/2024 Assessment & Plan (03/29/2024 9:10 AM GORE CUTTER): - Continue Medrol Dosepak - Initiate a erythromycin Z-Eddie - Initiate Robitussin cough syrup 200 mg t.i.d. p.r.n. and Tessalon 100 mg t.i.d. p.r.n. for cough - Continue Flonase 50 mcg per actuation nasal spray 2 sprays each nostril daily - Encouraged increase fluid intake and rest - Report back to office in 3-4 days if no improvement or worsening symptoms despite treatment Post-nasal drip 03/16/2024 11/10/2024 Assessment & Plan (03/16/2024 2:06 PM GORE CUTTER): - Initiate Flonase 50 mcg per actuation nasal spray, 2 sprays each nostril once per day - Continue daily use of Zyrtec 10 mg - Report back to office with continued or worsening symptoms Pain of left hip 02/09/2024 04/13/2024 Assessment & Plan (03/16/2024 2:05 PM GORE CUTTER): - Continue plan as outlined in HPI Assessment & Plan (02/09/2024 2:38 PM CDT): - Pain medication regimen as listed below - obtain left hip x-ray for further evaluation Parkinson's disease ([facility] 02/07/2024 02/09/2024 Acute cystitis with hematuria 07/26/2023 11/23/2023 Assessment & Plan (10/26/2023 9:12 AM CDT): Not improved New rx for Levaquin 750mg daily x7 days New rx Diflucan to pharm as well Repeat UA Assessment & Plan (10/19/2023 12:17 PM CDT): Urine dip with moderate leukocytes, positive nitrites, small blood Symptom duration 3 days Urine culture pending Yeast culture pending BV pending Multiple antibiotic allergy history, history of MDR/ ESBL bacteria Ciprofloxacin as prescribed Empiric Diflucan for possible vaginitis due to Adam ER for fevers, vomiting, abdominal pain, hematuria, constant flank pain, inability to void Patient has been on multiple antibiotics due to osteomyelitis status post TMA, recommended following up with ID or surgery to go over results pathology, recurrent UTIs could be in the setting use of multiple antibiotic use Morbid obesity with BMI of 50.0-59.9, adult 07/20/2023 07/20/2023 Vaginal irritation 07/18/2023 Assessment & Plan (07/18/2023 4:45 PM CDT): Urine dip with trace LE, positive nitrites, blood however patient has been taking azo, including today. Yeast urine culture pending BV stain pending, will detect for yeast as well Avoid tight fitting undergarment, moisture, hygiene Will tx for possible recurrent vulvovaginal candidiasis with diflucan 150 mg Q72 hours x 3 doses Nystatin powder to skin PCP for persisting symptoms Hydration Glucose control UTI symptoms 07/18/2023 11/23/2023 Assessment & Plan (07/18/2023 4:46 PM CDT): Urine dip with trace LE, positive nitrites, blood however patient has been taking azo, including today. Yeast urine culture pending BV stain pending, will detect for yeast as well Empiric keflex for possible bacterial cystitis Will tx for possible recurrent vulvovaginal candidiasis vs UTI due to adam with diflucan 150 mg Q72 hours x 3 doses Nystatin powder to skin PCP for persisting symptoms Hydration Glucose control ER for fevers, chills, abdominal pain, hematuria Upper respiratory tract infection 04/11/2023 11/23/2023 Assessment & Plan (04/11/2023 9:21 AM GORE CUTTER): VSS, NAD, lungs CTAB Rapid COVID, flu negative. PCR pending Rapid strep negative. Throat culture pending Symptom duration 2 days Strep exposure+ Will treat for possible strep due to close contact exposure (daughter, grand kids) and patient symptomatic. Discussed waiting for PCR results, if negative and worsening symptoms may start Augmentin or wait for throat culture and if positive start antibiotic Albuterol prn for wheezing, chest tightness, SOB Discussed if increased albuterol use more than twice a day, or the above, start medrol dose, otherwise may hold off. Discussed she should follow up with her PCP for asthma management, may need controlled medication rather than having to use albuterol daily R/o strep vs viral URI Monitor symptom progression, supportive care ER for chest pain, shortness and breath Tylenol or Ibuprofen for aches, pains. Take per package directions Antihistamines like Claritin or Zyrtec as needed for drainage. Take per package directions Delsym (cough suppressant) and Mucinex (cough expectorant) as needed for coughing. Follow package directions Frequent cough drops and lozenges Increase sugar free fluids, especially decaffeinated ones Sleep with head of bed raised to promote drainage Flonase or nasal saline spray, 2 sprays each nostril daily If you are not improving or worsening in the next 5-7 days you must RETURN to the clinic, go to your PCP, or Urgent Care/ER to be SEEN and reevaluated. No further prescriptions or refills will be given by phone without another evaluation. If you develop a high fever 103+, neck stiffness, trouble breathing, chest pain, or other life threatening symptoms GO TO THE ER IMMEDIATELY. Neurogenic claudication 01/29/202311/11 Assessment & Plan (01/29/2023 8:44 AM CDT): Impression: Patient has a history of herniated disc and is receiving injections without relief. Patient complains of pain to her left foot with sitting, standing, and pain with positional changes. Patient also complains of shooting pain from the lateral aspect of her left calf to her foot. She denies any symptoms of claudication, ischemic rest pain or ulcerations to her lower extremity. Patient has palpable distal pulses on exam. Plan: Reassured patient discomfort to her left lower extremity is unlikely circulation concern. -we will refer patient to neurology for further evaluation of neurogenic claudication. Capsulitis 12/10/2022 07/26/2023 Pharyngitis 12/10/2022 11/23/2023 Spasm 12/10/2022 11/10/2024 Assessment & Plan (02/09/2024 2:31 PM CDT): - continue Requip 0.5 mg 3 times a day and baclofen 10 mg 3 times a day - continue potassium 60 mEq daily and Cymbalta 30 mg twice daily - initiate amitriptyline 10 mg nightly - Continue physical therapy Assessment & Plan (01/05/2024 2:42 PM CDT): Not at goal Pain and spasms in LLE Add Requip 0.5mg TID Add baclofen 10mg TID Increase K+ to 60mEq daily Repeat BMP in 1 week Cellulitis 10/09/2022 07/26/2023 Assessment & Plan (10/09/2022 12:26 PM CDT): Impression: Near resolved/improving cellulitis right 4th toe. No open ulceration. No concern for systemic infection. Plan: Patient has finished her previously prescribed course of oral doxycycline. I will extend/prescribed 7 more days of oral doxycycline for the patient to complete. Dyspepsia 10/01/2022 11/10/2024 Assessment & Plan (10/01/2022 1:01 PM CDT): Nausea and bloating after meals. History of cholecystectomy. -avoid NSAIDS -PPI daily -schedule EGD -The risks (risks of bleeding, infection, perforation requiring surgery, missed polyps/cancer, dental injury, aspiration pneumonia, anesthesia complications such as drug reaction and cardiopulmonary complications including rare chance of ), benefits, and alternatives of the planned procedure were explained to the patient who understands and consents to having procedure done. Toe infection 09/15/2022 12/09/2023 Hypokalemia 07/30/2022 01/05/2024 Assessment & Plan (12/06/2023 8:51 AM CDT): Stable Lab Results Component Value Date GLUCOSE 114 11/30/2023 CALCIUM 10.3 11/30/2023 SODIUM 135 11/30/2023 POTASSIUM 3.7 11/30/2023 CO2 25 11/30/2023 CHLORIDE 96 (L) 11/30/2023 BUNSER 7 11/30/2023 CREATININE 0.73 11/30/2023 Continue potassium 40mEq daily Hypocalcemia 07/30/2022 01/05/2024 Diverticulitis 07/29/2022 11/23/2023 Assessment & Plan (10/01/2022 1:02 PM CDT): Patient has had multiple episodes of diverticulitis over the past few months. Patient was seen in the ER July 05, 2022 for left lower quadrant abdominal pain radiating to the right lower quadrant as well as epigastric pain. Patient had already received 10 days of Cipro and Flagyl. CT scan showed sigmoid diverticulitis. Patient was treated with Augmentin. Patient was seen again in the ER July 27, 2022 for lower abdominal pain 1 week after completing antibiotics. CT scan July 26, 2022 showed very mild uncomplicated sigmoid diverticulitis. Patient was not treated with antibiotics. Patient presented back to the ER July 29, 2022 with abdominal pain and nausea. White blood cell count was elevated at 15, CT scan showed acute sigmoid diverticulitis, inflammation is worsened when compared to prior CT scan. Patient was admitted to the hospital and discharged on August 03, 2022. She was treated with IV Zosyn and discharged on Omnicef and Flagyl for 10 more days. Patient was admitted to the hospital August 02 for diverticulitis. She was treated with IV antibiotics, then switch to Augmentin on discharge. -schedule colonoscopy -The risks (risks of bleeding, infection, perforation requiring surgery, missed polyps/cancer, dental injury, aspiration pneumonia, anesthesia complications such as drug reaction and cardiopulmonary complications including rare chance of ), benefits, and alternatives of the planned procedure were explained to the patient who understands and consents to having procedure done. -discussed referral to colorectal surgery, patient requested referral colorectal surgery Assessment & Plan (08/07/2022 8:38 AM CDT): Discussed return to ER vs. Outpatient workup. Will get repeat CBC to recheck white count. Pt will continue antibiotics. If fever or worsening, RTC/ER. Assessment & Plan (08/06/2022 9:32 AM CDT): Patient has had multiple episodes of diverticulitis over the past month. Patient was seen in the ER July 05, 2022 for left lower quadrant abdominal pain radiating to the right lower quadrant as well as epigastric pain. Patient has already received 10 days of Cipro and Flagyl. CT scan showed sigmoid diverticulitis. Patient was treated with Augmentin. Patient was seen again in the ER July 27, 2022 for lower abdominal pain 1 week after completing antibiotics. CT scan July 26, 2022 showed very mild uncomplicated sigmoid diverticulitis. Patient was not treated with antibiotics. Patient presented back to the ER July 29, 2022 with abdominal pain and nausea. White blood cell count was elevated at 15, CT scan showed acute sigmoid diverticulitis, inflammation is worsened when compared to prior CT scan. Patient was admitted to the hospital and discharged on August 03, 2022. She was treated with IV Zosyn and discharged on Omnicef and Flagyl for 10 more days. Went to ER last night and was given a dose of IV antibiotics. Patient continues to have left lower quadrant and right lower quadrant abdominal pain, CT scan done yesterday shows worsening inflammation. White blood cell count is elevated. Patient is tender to palpation her lower abdomen. -it is unlikely patient will respond to outpatient antibiotics and given continue pain, elevated white blood cell count and tenderness to palpation on exam, I advised patient to go back to the ER and possibly be admitted for IV antibiotics. She voiced understanding and agreed with plan. -she may benefit from seeing surgery while in the hospital as well as Infectious Disease -once diverticulitis has resolved, we will consider outpatient colonoscopy in 6- 8 weeks. Encounter for screening colonoscopy 07/24/2022 11/23/2023 Acute left-sided low back pa in with left-sided sciatica 04/07/2022 07/30/2022 Pain of left lower extremity 04/07/2022 07/30/2022 Abdominal pain of multiple sites 12/23/2021 07/30/2022 Acute diverticulitis 12/23/2021 023 Diverticulitis of colon 12/23/202107/12 Dysuria 12/23/2021 07/30/2022 Edema 12/23/2021 07/30/2022 External hordeolum 12/23/2021 Facial weakness 12/23/2021 07/30/2022 Fatigue 12/23/2021 07/30/2022 Fever 12/23/2021 07/30/2022 Leukocytosis 12/23/2021 07/30/2022 Hypokalemia due to loss of potassium 12/23/2021 07/30/2022 Increased frequency of urination 12/23/2021 07/30/2022 Pain in throat 12/23/2021 07/30/2022 Prolonged severe nausea and vomiting 12/23/2021 07/30/2022 Urinary tract infectious disease 12/23/2021 07/30/2022 Well child examination 12/23/202107/30 Acute osteomyelitis of phalanx of foot 12/17/2021 07/30/2022 Sprain of right ankle 12/08/20212023 Cramps of lower extremity 11/26/2021 Hyperglycemia 11/26/2021 07/30/2022 Ankle pain 11/13/2021 07/30/2022 Positive D-dimer 09/22/2021 07/30/2022 Asymptomatic varicose veins of unspecified lower extremity 07/30/2021 12/07/2023 History of severe acute resp iratory syndrome coronavirus 2 (SARS-CoV-2) disease 07/30/202107/30 Shortness of breath 07/30/2021 07/31/19 Superficial vein thrombosis 07/30/2021 07/30/2022 Puncture wound of foot 07/10/202107/30 Injury of toenail 02/20/2021 07/30/2022 Fissure in skin 06/10/2020 07/30/2022 COVID-19 03/20/2020 07/30/2022 Ulcer of great toe 03/12/2020 4 Cellulitis of foot 11/10/2018 4 Hyponatremia 07/30/2022 Right foot pain 07/30/2022 Class 3 severe obesity due t o excess calories without serious comorbidity in adult Encounters Date Type Department Care Team Description 11/22/2024 1:15 PM CDT Office Visit [facility] Vascular and Vein Surgery [address] [place] [address] [address] [place] [address] Jason Gross MD Charcot arthropathy of midfoot (Primary Dx); Primary hypertension; Mixed hyperlipidemia; Lymphedema 11/22/2024 Documentation [facility] at [address] [place] [address] Marcy Gutiérrez NP PA OxyContin 11/21/2024 Telephone [facility] at [address] [place] [address] Marcy Gutiérrez NP 11/10/2024 8:30 AM CDT Office Visit [facility] at [address] [place] [address] Marcy Gutiérrez NP Opioid-induced constipation (Primary Dx); PVD (peripheral vascular disease) with claudication; Charcot arthropathy of midfoot; Amputation of toe of left foot; Primary osteoarthritis of both knees; Acquired hallux rigidus of left foot; Lymphedema; Mixed hyperlipidemia; Pre-diabetes 11/10/2024 Telephone [facility] Medicine at [address] [address] Marcy Gutiérrez NP Prior Auth (Linzess) 11/09/2024 Telephone [facility] OP Physical Therapy [address] [place] [address] Johana Bee, [place] 11/09/2024 Telephone [facility] at [address] [address] Marcy Gutiérrez NP Re: Shower chair 11/08/2024 Telephone [facility] at [address] [address] Marcy Gutiérrez NP Medication Problem 11/08/2024 Orders Only [facility] at [address] [address] Marcy Gutiérrez NP Lymphedema (Primary Dx) 11/07/2024 1:15 PM CDT Office Visit [facility] at [address] [address] Alphonso Cagle MD Chronic idiopathic constipation (Primary Dx); Lymphedema; Charcot arthropathy of midfoot 11/07/2024 Nurse Triage [facility] at [address] [address] Marcy Gutiérrez NP 10/16/2024 Results Follow-Up [facility] Medical [facility] at [address] [place] [address] Abdomen Pelvis W Contrast 10/09/2024 1:38 PM CDT - 10/09/2024 11:59 PM CDT Hospital Encounter [facility] [address] [place] [address] Recurrent Clostridioides difficile diarrhea Discharge Disposition: Discharge to home or self care 09/12/2024 Telephone [facility] Medical [facility] [address] [place] [address] [address] [place] [address] Natividad Medina PA refill 09/12/2024 Results Follow-Up [facility] at [address] [place] [address] Marcy Gutiérrez NP Comprehensive metabolic panel, Lipid panel, CBC with auto differential, Additional followed-up results: 9 09/12/2024 Results Follow-Up [facility] at [address] [address] Priyanka Leo NP Follicle stimulating hormone, LH, Prolactin 09/11/2024 2:00 PM CDT Lab [facility] Office Bldg [address] OP [address] [place] [address] Polycystic ovaries; Menopause; Gross hematuria; Healthcare maintenance 09/11/2024 1:59 PM CDT - 09/11/2024 11:59 PM CDT Hospital Encounter [facility] Bldg [address] OP Lab [address] [place] [address] Discharge Disposition: Discharge to home or self care 09/11/2024 1:45 PM CDT Lab [facility] Bldg [address] OP Lab [address] [place] [address] Healthcare maintenance; Sweating abnormality; Polycystic ovaries; Menopause; Gross hematuria 09/11/2024 1:30 PM CDT Clinical Support [facility] at [place] [address] [facility] [address] [place] [address] Hematuria, unspecified type (Primary Dx) 09/11/2024 Orders Only [facility] at [address] [place] [address] Marcy Gutiérrez NP 09/11/2024 Results Follow-Up [facility] at [address] [place] [address] Marcy Gutiérrez NP POCT urinalysis dipstick 09/11/2024 Telephone [facility] Minimally Invasive Surgery [address] [place] [address] Medical Office Building 4 [address] [place] [address] Christopher Ramon CMA 09/07/2024 3:30 PM CDT Office Visit [facility] Infectious Disease [address] [facility] [address] [place] [address] Misael Cervantes MD Recurrent Clostridioides difficile diarrhea 08/28/2024 Telephone [facility] at [address] [place] [address] Marcy Gutiérrez NP Medical Question/Miscellaneo us from Last 3 Months Immunizations Immunization Administration Dates Next Due Hep B Vaccine 10/24/2012,09/22/2012 Hep B, Unspecified 10/21/2012,09/22/2012 Influenza, Trivalent, Preser vative Free, Intramuscular 01/31/2024 Influenza, Unspecified 04/29/2023,2022(Deferred: Patient Refused),01/29/2023(Deferred: Patient Refused),01/29/2023(Deferred: Patient Refused),01/10/2023(Deferred: Patient Refused),01/14/2022(Deferred: Patient Refused),01/10/2022(Deferred: Patient Refused),01/10/2022(Deferred: Patient Refused),01/29/2021(Deferred: Patient Refused) Tdap 09/06/2021,06/24/2016 Surgical History Surgery Date Site/Laterality Comments HERNIA REPAIR HYSTERECTOMY CHOLECYSTECTOMY 04/12/1998 - 04/11/1999 TOE AMPUTATION 12/11/2021 - 01/09/2022 Right 3th toe VAGINAL DELIVERY x6 TOE AMPUTATION 04/12/2023 - 04/11/2024 Left 2 and 3rd toe ABDOMINAL SURGERY INGUINAL HERNIA REPAIR UMBILICAL HERNIA REPAIR HIATAL HERNIA REPAIR Medical History Medical History Date Comments Hypertension PVD (peripheral vascular disease) Obesity Asthma Diverticulosis Metabolic disease Iron (Fe) deficiency anemia Enlarged liver GERD (gastroesophageal reflux disease) Fibroid Ovarian cyst PONV (postoperative nausea and vomiting) Urinary tract infection Green's palsy 2018 Chronic constipation Charcot arthropathy of midfoot 12/2023 Vitamin D deficiency Diverticulitis of colon 2010 Irritable bowel syndrome Family History Medical History Relation Name Comments Asthma Brother Jadon Allergy (severe) Father Edgar Cabrera Arthritis Father Edgar Cabrera COPD Father Edgar Cabrera Early Father Edgar Cabrera Heart disease Father Edgar Cabrera Hyperlipidemia Father dEgar Cabrera Hypertension Father Edgar Cabrera Breast cancer Father's Sister Crohn's disease Maternal Grandmother Anemia Mother Genoveva Cabrera Arthritis Mother Genoveva Cabrera Cancer Mother Genoveva Cabrera Hyperlipidemia Mother Genoveva Cabrera Hypertension Mother Genoveva Cabrera Lymphoma Mother Genoveva Cabrera Ovarian cancer Sister Relation Name Status Comments Brother Jadon Alive Father Edgar Cabrera Alive Father's Sister Maternal Grandmother Mother Genoveva aCbrera Alive Sister Social History Tobacco Use Types Packs/Day Years Used Date Smoking Tobacco: Never Smokeless Tobacco: Never Tobacco Cessation:Counseling Given: Not Answered Alcohol Use Standard Drinks/Week Comments Not Currently 0 (1 standard drink = 0.6 oz pur e alcohol) [facility] Utilities Answer Date Recorded In the past 12 months has [employer], gas, oil, or water [employer] threatened to shut off services in your [...] week 12/29/2023 How often do you attend [facility] or mormon services? 1 to 4 times per year 12/29/2023 Do you belong to any clubs o r organizations such as druze groups, unions, fraternal or athletic groups, or [...] points, staff should administer the PHQ-9) 0 11/10/2024 Hunger Vital Sign Answer Date Recorded Within [...] place to sleep or slept in a long-term (including now)? No 08/07/2022 PHQ-9 Answer Date Recorded PHQ-9 Total Score 0 11/10/2024 Housing Stability Vital Sign Answer Johnnie e Recorded In the last 12 months, was t here a time when you were not able to pay the mortgage or rent on time? No 12/29/2023 In the past 12 months, how m any times have you moved where you were living? 1 12/29/2023 At any time in the past 12 m [facility], were you homeless or living in a long-term (including now)? No 12/29/2023 Personal Safety Answer Date Recorded Have you ever been in or are you currently in a harmful physical or emotional relationship or is someone making you feel afraid or unsafe? Denies 03/25/2024 Comments No Sex and Gender Information Value Date Recorded Sex Assigned at Not on file Legal Sex Female 12:11 AM G[employer] C[employer] Gender Identity Female 09/28/2023 5:14 PM CDT Sexual Orientation Not on file Obstetrics History Para Term AB IAB SAB Ectopic Multiple Livin g Live Births 7 6 6 Date Outcome GA Total Labor Labor/2nd/3rd Weight Sex Type Anes PTL Екатерина A1 A5 Name Clin Term Term Term Term Term Term Last Filed Vital Signs Vital Sign Reading Time Taken Comments Blood Pressure 113/72 11/22/2024 1:09 PM CDT Pulse 59 11/22/2024 1:09 PM CDT Temperature 36.1 C (97 F) 11/10/2024 8:20 AM CDT Respiratory Rate 14 11/10/2024 8:20 AM CDT Oxygen Saturation 97% 11/10/2024 8:20 AM CDT Inhaled Oxygen Concentration - - Weight 150.6 kg (332 lb) 11/22/2024 1:09 PM CDT Height 165.1 cm (5' 5) 11/22/2024 1:09 PM CDT Body Mass Index 55.25 11/22/2024 1:09 PM CDT Plan of Treatment Health Maintenance Due Date Last Done Comments Hepatitis C Screening 1975 Regular Well Visit/Exam 18-64 1995 Covid-19 Vaccine ( season) 2023 11/09/2020 Influenza Vaccine (#1) 2024 01/31/2024, 2023 Breast Cancer Screening-Mammogram 02/23/2025 02/24/2024 Pneumococcal vaccine <65 (1 of 2 - PCV) 10/26/2025 Postponed from 01/21/1996 (Patient declined, but will receive in the future) Depression Screening 11/10/2025 11/10/2024, 11/10/2024, 11/29/2023, Additional history exists DTaP/Tdap/Td Vaccine (3 - Td or Tdap) 09/07/2031 09/06/2021, 06/24/2016 Colon Cancer Screening-Colonoscopy 05/26/2033 05/26/2023 Hepatitis B Screening Completed 10/24/2012 , 10/21/2012, 09/22/2012, Additional history exists Procedures Procedure Name Priority Date/Time Associated Diagnosis Comments CT ABDOMEN PELVIS W CONTRAST Schedule Routine, Read Routine (OP Routine) 10/09/2024 1:48 PM CDT Recurrent Clostridioides difficile diarrhea EGFR Routine 09/11/2024 2:03 PM CDT Healthcare maintenance BLOOD SMEAR REVIEW Routine 09/11/2024 2: 03 PM CDT Healthcare maintenance DIFFERENTIAL AUTO Routine 09/11/2024 2:0 3 PM CDT Healthcare maintenance FOLATE Routine 09/11/2024 2:03 PM CDT Sweating abnormality VITAMIN B12 Routine 09/11/2024 2:03 PM CDT Sweating abnormality THYROID FUNCTION CASCADE Routine 09/11/2024 2:03 PM CDT Healthcare maintenance HEMOGLOBIN A1C Routine 09/11/2024 2:03 PM CDT Healthcare maintenance VITAMIN D 25 HYDROXY Routine 09/11/2024 2:03 PM CDT Healthcare maintenance IRON PROFILE W/ IBC Routine 09/11/2024 2 :03 PM CDT Sweating abnormality CBC WITH AUTO DIFFERENTIAL Routine 09/11/2024 2:03 PM CDT Healthcare maintenance LIPID PANEL Routine 09/11/2024 2:03 PM CDT Healthcare maintenance COMPREHENSIVE METABOLIC PANEL Routine 09/11/2024 2:03 PM CDT Healthcare maintenance PROLACTIN Routine 09/11/2024 2:01 PM CDT Polycystic ovaries Menopause LUTEINIZING HORMONE (LH) Routine 09/11/2024 2:01 PM CDT Polycystic ovaries Menopause FOLLICLE STIMULATING HORMONE Routine 09/11/2024 2:01 PM CDT Polycystic ovaries Menopause POCT URINALYSIS DIPSTICK Routine 09/11/2024 1:25 PM CDT Hematuria, unspecified type URINALYSIS, MICROSCOPIC ONLY Routine 09/11/2024 1:25 PM CDT Gross hematuria ALBUMIN CREATININE RATIO, URINE Routine 09/11/2024 1:25 PM CDT Healthcare maintenance URINE CULTURE Routine 09/11/2024 1:25 PM CDT Gross hematuria URINALYSIS AND REFLEX TO MICROSCOPIC AND CULTURE Routine 09/11/2024 1:25 PM CDT Gross hematuria SCREENING MAMMOGRAM BILATERAL W GAURAV Schedule Routine, Read Routine (OP Routine) 02/24/2024 10:57 AM GORE CUTTER Breast cancer screening by mammogram from Last 3 Months or Most Recently Relevant to Health Maintenance Results * CT Abdomen Pelvis W Contrast (10/09/2024 1:48 PM CDT) Anatomical Region Laterality Modality Body N/A Computed Tomogra phy 10/16/2024 7:24 AM CDT Narrative 10/16/2024 7:28 AM CDT EXAM DESCRIPTION: CT ABDOMEN PELVIS W CONTRAST REASON FOR STUDY: History of C diff colitis Dx: Recurrent Clostridioides difficile diarrhea A04.71 (ICD-10-CM) TECHNIQUE: CT scan of the abdomen and pelvis performed with intravenous and without oral contrast using helical scanning technique with dynamic intravenous contrast injection. Reconstructed coronal and sagittal MPR images reviewed. All images stored on PACS. Automated exposure control was used as a dose optimization technique for this examination. CONTRAST TYPE/DOSE: 100mL of IOVERSOL 350 MG IODINE/ML INTRAVENOUS SYRINGE injected via intravenous COMPARISON: 03/25/2024. FINDINGS: LOWER CHEST: Lung bases are predominantly clear. There is no pleural effusion. LIVER: Mild hepatic steatosis. No focal hepatic lesion. The liver is enlarged at 23.7 cm. Portal and hepatic veins patent. GALLBLADDER: Surgically absent. BILE DUCTS: No biliary ductal dilation. SPLEEN: Spleen size normal. No focal splenic lesion. PANCREAS: No pancreatic mass or inflammatory change. ADRENALS: Normal KIDNEYS/URINARY TRACT: No right renal calculus. No left renal calculus. No ureteral calculus. There is no hydronephrosis or hydroureter. The urinary bladder is relatively decompressed. GI: Mild wall thickening of the rectosigmoid colon. There are few scattered colonic diverticula without evidence of acute diverticulitis. The terminal ileum and the appendix are normal. The stomach and duodenal are normal. No abnormal bowel wall thickening. There is no pneumatosis. PERITONEUM: No ascites or free air. There is no mesenteric mass or lymphadenopathy. RETROPERITONEUM: No retroperitoneal mass or lymphadenopathy. REPRODUCTIVE: No significant abnormalities are seen. VASCULATURE: Abdominal aorta nonaneurysmal. MUSCULOSKELETAL: Bone windows demonstrate no acute or aggressive osseous abnormality. There is a tiny fat containing umbilical hernia. OTHER: No other abnormality. IMPRESSION: 1. Mild wall thickening of the rectosigmoid colon which is nonspecific but may be due to a mild colitis. 2. Hepatomegaly and hepatic steatosis. 3. Cholecystectomy. 4. Few scattered colonic diverticula without evidence of acute diverticulitis. THIS IS AN ELECTRONICALLY VERIFIED FINAL REPORT 10/16/2024 7:28 AM - Electronically signed by Jeramy Cabezas M.D. T: Report ID: [id number] Reading Location: [place] [address] Procedure Note Jeramy Cabezas Jr., MD - 10/16/2024 EXAM DESCRIPTION: CT ABDOMEN PELVIS W CONTRAST REASON FOR STUDY: History of C diff colitis Dx: Recurrent Clostridioides difficile diarrhea A04.71 (ICD-10-CM) TECHNIQUE: CT scan of the abdomen and pelvis performed with intravenousand without oral contrast using helical scanning technique with dynamic intravenous contrast injection. Reconstructed coronal and sagittal MPRimages reviewed. All images stored on PACS. Automated exposure control was usedas a dose optimization technique for this examination. CONTRAST TYPE/DOSE: 100mL of IOVERSOL 350 MG IODINE/ML INTRAVENOUSSYRINGE injected via intravenous COMPARISON: 03/25/2024. FINDINGS: LOWER CHEST: Lung bases are predominantly clear. There is no pleural effusion. LIVER: Mild hepatic steatosis. No focal hepatic lesion. The liver is enlarged at 23.7 cm. Portal and hepatic veins patent. GALLBLADDER: Surgically absent. BILE DUCTS: No biliary ductal dilation. SPLEEN: Spleen size normal. No focal splenic lesion. PANCREAS: No pancreatic mass or inflammatory change. ADRENALS: Normal KIDNEYS/URINARY TRACT: No right renal calculus. No left renal calculus.No ureteral calculus. There is no hydronephrosis or hydroureter. Theurinary bladder is relatively decompressed. GI: Mild wall thickening of the rectosigmoid colon. There are fewscattered colonic diverticula without evidence of acute diverticulitis. Theterminal ileum and the appendix are normal. The stomach and duodenal are normal.No abnormal bowel wall thickening. There is no pneumatosis. PERITONEUM: No ascites or free air. There is no mesenteric mass or lymphadenopathy. RETROPERITONEUM: No retroperitoneal mass or lymphadenopathy. REPRODUCTIVE: No significant abnormalities are seen. VASCULATURE: Abdominal aorta nonaneurysmal. MUSCULOSKELETAL: Bone windows demonstrate no acute or aggressive osseous abnormality. There is a tiny fat containing umbilical hernia. OTHER: No other abnormality. IMPRESSION: 1. Mild wall thickening of the rectosigmoid colon which is nonspecificbut may be due to a mild colitis. 2. Hepatomegaly and hepatic steatosis. 3. Cholecystectomy. 4. Few scattered colonic diverticula without evidence of acute diverticulitis. THIS IS AN ELECTRONICALLY VERIFIED FINAL REPORT 10/16/2024 7:28 AM - Electronically signed by Jeramy Cabezas M.D. T: Report ID: [id number] Reading Location: [id number] Misael Cervantes MD IMG CT PROCEDURES Final Resu lt * Blood smear review (09/11/2024 2:03 PM CDT) RBC morphology Normal Platelet estimate Automated Count Confirmed JAMSHID RODRIGUEZ Comment:No platelet clumps s een on smear Blood 09/11/2024 2:03 PM CDT 09/11/2024 4:29 PM CDT Marcy Gutiérrez NP LAB BLOOD ORDERABLES Final Re sult Performing Organization Address [facility] Co de Phone Number JAMSHID [address] [place] [address] * eGFR (09/11/2024 2:03 PM CDT) eGFR >90 >=60 mL/min/1. 73 m2 Comment: Interpretive Data Reference Interval Normal >/= 90 mL/min/1.73m2 Mildly decreased* 60 - 89 mL/min/1.73m2 Mildly to moderately decreased 45 - 59 mL/min/1.73m2 Moderately to severely decreased 30 - 44 mL/min/1.73m2 Severely decreased 15 - 29 mL/min/1.73m2 Kidney Failure < 15 mL/min/1.73m2 *Relative to young adult level Estimated glomerular filtration rate is determined by the 2020 CKD-EPI equation recommended by the National Kidney Foundation (A Unifying Approach to GFR Estimation: Recommendations of the NKF-ASK Task Force on Reassessing the Inclusion of Race in Diagnosing Kidney Disease, JASN 2020). The CKD-EPI equation should not be used for patients with unstable renal function and has not been validated in children and those over 70. Current interpretive data was last reviewed 2021. Blood 09/11/2024 2:03 PM CDT 09/11/2024 4:29 PM CDT Marcy Gutiérrez NP LAB BLOOD ORDERABLES Final Re sult Performing Organization Address City/[facility]/ZIP Co de Phone Number CERNER [address] [place] [address] * Differential, auto (09/11/2024 2:03 PM CDT) Neutrophil abs 6.13 1.50 - 6.50 K/cumm Imm gran abs 0.02 0.00 - 0.10 K/cumm [facility] Lymphocyte abs 2.10 0.80 - 3.30 K/cumm [facility] Monocyte abs 0.67 0.20 - 0.80 K/cumm [facility] Eosinophil abs 0.18 0.00 - 0.50 K/cumm [facility] Basophil abs 0.04 0.00 - 0.10 K/cumm [facility] Neutrophil pct 67.1 % [facility] Comment: Interpretive Data Percent cell count reference ranges are not reported, since discordance with absolute values may lead to misinterpretation of CBC data. Current Interpretive Data was last revised on 2017. Imm gran pct 0.2 % [facility] Comment: Interpretive Data Percent cell count reference ranges are not reported, since discordance with absolute values may lead to misinterpretation of CBC data. Current Interpretive Data was last revised on 2017. Lymphocyte pct 23.0 % [facility] Comment: Interpretive Data Percent cell count reference ranges are not reported, since discordance with absolute values may lead to misinterpretation of CBC data. Current Interpretive Data was last revised on 2017. Monocyte pct 7.3 % [facility] Comment: Interpretive Data Percent cell count reference ranges are not reported, since discordance with absolute values may lead to misinterpretation of CBC data. Current Interpretive Data was last revised on 2017. Eosinophil pct 2.0 % [facility] Comment: Interpretive Data Percent cell count reference ranges are not reported, since discordance with absolute values may lead to misinterpretation of CBC data. Current Interpretive Data was last revised on 2017. Basophil pct 0.4 % [facility] Comment: Interpretive Data Percent cell count reference ranges are not reported, since discordance with absolute values may lead to misinterpretation of CBC data. Current Interpretive Data was last revised on 2017. Blood 09/11/2024 2:03 PM CDT 09/11/2024 4:29 PM CDT Marcy Gutiérrez MACHINE [employer] LAB BLOOD ORDERABLES Final Re sult Performing Organization Address [facility] Co de Phone Number JAMSHID [address] [place] [address] * Thyroid Function [place] (09/11/2024 2:03 PM CDT) Pathologist [facility] TSH 1.10 0.30 - 4.20 mcIUnit/mL Blood 09/11/2024 2:03 PM CDT 09/11/2024 4:29 PM CDT Marcy Gutiérrez MACHINE [employer] LAB BLOOD ORDERABLES Final Re sult Performing Organization Address [facility] de Phone Number JAMSHID [address] [place] [address] * Iron profile w/ IBC (09/11/2024 2:03 PM CDT) Pathologist [facility] Iron 67 35 - 145 mcg/dL TIBC 315 250 - 400 mcg/dL [facility] Transferrin saturation 21 20 - 50 % [facility] Blood 09/11/2024 2:03 PM CDT 09/11/2024 4:29 PM CDT Marcy Gutiérrez MACHINE [employer] LAB BLOOD ORDERABLES Final Re sult Performing Organization Address [facility] Co de Phone Number [address] [place] [address] * CBC with auto differential (09/11/2024 2:03 PM CDT) Pathologist [facility] WBC 9.14 3.80 - 9.90 K/cumm Hgb 12.4 11.9 - 15.5 g/dL [facility] Hct 37.1 35.6 - 45.5 % [facility] Plt 259 150 - 400 K/cumm [facility] MPV 11.3 9.1 - 12.3 fL [facility] RBC 4.06 3.90 - 5.20 M/cumm [facility] MCV 91.4 81.3 - 96.4 fL [facility] MCH 30.5 27.1 - 33.3 pg [facility] MCHC 33.4 32.3 - 35.7 g/dL [facility] RDW CV 12.8 11.1 - 14.9 % [facility] RDW SD 42.5 35.7 - 48.1 fL [facility] NRBC abs 0.00 0.00 - 0.01 K/cumm [facility] Blood 09/11/2024 2:03 PM CDT 09/11/2024 4:29 PM CDT Marcy Gutiérrez NP LAB BLOOD ORDERABLES Edited R esult - Final Performing Organization Address City/[facility]/ZIP Co de Phone Number [address] [place] [address] * (ABNORMAL) Vitamin D 25 hydroxy (09/11/2024 2:03 PM CDT) Pathologist [facility] Vitamin D 25-OH 19.0(L) 30.0 - 80.0 ng/mL Blood 09/11/2024 2:03 PM CDT 09/11/2024 4:29 PM CDT Marcy Gutiérrez NP LAB BLOOD ORDERABLES Final Re sult Performing Organization Address City/[facility] Co de Phone Number [address] [place] [place] [address] * (ABNORMAL) Hemoglobin A1c (09/11/2024 2:03 PM CDT) Hgb A1C 5.7(H) 4.0 - 5.6 % Estimated Average Glucose 117 mg/dL [facility] Comment: The ADA recommends reporting an estimated Average Glucose (eAG) with all Hemoglobin A1c results using the equation derived from a study of 507 normal and diabetic adults. Minority populations were underrepresented and children were not included. (Diabetes Care 31:3989-3354, 2008). The eAG is not equivalent to a fasting glucose. Blood 09/11/2024 2:03 PM CDT 09/11/2024 4:29 PM CDT Marcy Gutiérrez MACHINE [employer] LAB BLOOD ORDERABLES Final Re sult Performing Organization Address [facility] [facility] de Phone Number JAMSHID [address] [place] [address] * Folate (09/11/2024 2:03 PM CDT) Folic acid 15.0 >=5.0 ng/mL Blood 09/11/2024 2:03 PM CDT 09/11/2024 4:28 PM CDT Marcy Gutiérrez MACHINE PAINT MIXER LAB BLOOD ORDERABLES Final Re sult Performing Organization Address [facility] de Phone Number [id number] [place] [address] * Vitamin B12 (09/11/2024 2:03 PM CDT) Vitamin B12 782 230 - 1,250 pg/mL Blood 09/11/2024 2:03 PM CDT 09/11/2024 4:29 PM CDT Marcy Gutiérrez NP LAB BLOOD ORDERABLES Final Re sult Performing Organization Address [facility] de Phone Number [address] [place] [address] * (ABNORMAL) Lipid panel (09/11/2024 2:03 PM CDT) Cholesterol 258(H) 30 - 199 mg/dL Comment: Interpretive Data Ages < or = 19 years Acceptable: <170 mg/dL Borderline high: 170-199 mg/dL High: >or= 200 mg/dL Ages > or = 20 years Desirable: <200 mg/dL Borderline high: 200-239 mg/dL High: >or= 240 mg/dL Literature References: 1. Expert Panel on Integrated Guidelines for Cardiovascular Health and Risk Reduction in Children and Adolescents. Pediatrics 2011;128:S213 2. NCEP Expert Panel. Circulation 2004;110:227 Current Interpretive Data was last revised on 2017. Triglycerides 375(H) <=149 mg/dL JAMSHID Comment: Interpretive Data Ages < or = 9 years Acceptable: <75 mg/dL Borderline high: 75-99 mg/dL High: >or= 100 mg/dL Ages 10 to 20 years Acceptable: <90 mg/dL Borderline high: 90-129 mg/dL High: >or= 130 mg/dL Ages > or = 20 years Desirable: <150 mg/dL Borderline high: 150-199 mg/dL High: 200-499 mg/dL Very high: >or= 499 mg/dL Literature References: 1. Expert Panel on Integrated Guidelines for Cardiovascular Health and Risk Reduction in Children and Adolescents. Pediatrics 2011;128:S213 2. NCEP Expert Panel. Circulation 2004;110:227 Current Interpretive Data was last revised on 2017. HDL 32(L) >=40 mg/dL JAMSHID Comment: Interpretive Data Ages < or = 19 years Acceptable: >45 mg/dL Borderline low: 40-45 mg/dL Low: <40 mg/dL Ages > or = 20 years Desirable: >or= 60 mg/dL Low: <40 mg/dL Literature References: 1. Expert Panel on Integrated Guidelines for Cardiovascular Health and Risk Reduction in Children and Adolescents. Pediatrics 2011;128:S213 2. NCEP Expert Panel. Circulation 2004;110:227 Current Interpretive Data was last revised on 2017. LDL, calculated 155(H) <=129 mg/dL JAMSHID Comment: Interpretive Data Ages < or = 19 years Acceptable: <110 mg/dL Borderline high: 110-129 mg/dL High: >or= 130 mg/dL Ages > or = 20 years Optimal: <100 mg/dL Near optimal: 100-129 mg/dL Borderline high: 130-159 mg/dL High: >160 mg/dL Calculated using the Phan LDL-C estimating equation. This equation was implemented on 2023. Prior to this date LDL-C was estimated using the Friedewald equation. Literature References: 1. Expert Panel on Integrated Guidelines for Cardiovascular Health and Risk Reduction in Children and Adolescents. Pediatrics 2011;128:S213 2. NCEP Expert Panel. Circulation 2004;110:227 3. Sylvester White et al. TAMI Cardiol. 2020 August 10;5(5):540-548. doi: 10.1001/jamacardio.2020.0013 Current Interpretive Data was last revised on 2023. Non-HDL Cholesterol 226 mg/dL [facility] Comment: Interpretive Data Ages < or = 19 years Acceptable: <120 mg/dL Borderline high: 120-144 mg/dL High: >145 mg/dL Ages > or = 20 years When triglycerides are >200 mg/dL, Non-HDL cholesterol is a secondary target of therapy with treatment goals that are 30 mg/dL greater than the LDL cholesterol target. Literature References: 1. Expert Panel on Integrated Guidelines for Cardiovascular Health and Risk Reduction in Children and Adolescents. Pediatrics 2011;128:S213 2. NCEP Expert Panel. Circulation 2004;110:227 Current Interpretive Data was last revised on 2017. Chol/HDL ratio 8 [facility] Blood 09/11/2024 2:03 PM CDT 09/11/2024 4:29 PM CDT Narrative [facility] - 09/11/2024 7:16 PM CDT Has the patient been fasting for 8 hours or more?->Yes Marcy Gutiérrez NP LAB BLOOD ORDERABLES Final Re sult [facility] [address] [facility] Department [place] [address] * (ABNORMAL) Comprehensive metabolic panel (09/11/2024 2:03 PM CDT) [facility] Sodium 139 135 - 145 mmol/L Potassium, pl 4.1 3.3 - 4.9 mmol/L [facility] Chloride 104 97 - 110 mmol/L [facility] CO2 23 22 - 32 mmol/L [facility] Anion gap 12 2 - 15 mmol/L [facility] BUN 13 6 - 25 mg/dL [facility] Creatinine 0.59(L) 0.60 - 1.10 mg/dL [facility] Glucose 111 70 - 199 mg/dL [facility] Comment: Interpretive Data Fasting glucose >/= 126 mg/dl is diagnostic for diabetes. Fasting is defined as no caloric intake for at least 8 hours. Fasting glucose between 100 mg/dl to 125 mg/dl is diagnostic of prediabetes. In a patient with classic symptoms of hyperglycemia or hyperglycemic crisis, a random glucose >/= 200 mg/dl is diagnostic for diabetes. In the absence of unequivocal hyperglycemia, results should be confirmed by repeat testing. The classification and Diagnosis of Diabetes Diabetes Care 2021; 46: S19-S40. Current interpretive data was last revised 2022. Calcium 9.7 8.5 - 10.3 mg/dL [facility] Bilirubin, total 0.4 0.1 - 1.2 mg/dL [facility] Protein, pl 7.6 6.5 - 8.5 g/dL [facility] Albumin 4.3 3.5 - 5.0 g/dL [facility] Alk phos 77 40 - 130 Units/L [facility] ALT 34 7 - 45 Units/L [facility] AST 32 10 - 45 Units/L [facility] Blood 09/11/2024 2:03 PM CDT 09/11/2024 4:29 PM CDT us Marcy Gutiérrez MACHINE PAINT MIXER LAB BLOOD ORDERABLES Final Re sult Performing Organization Address City/[facility]/ZIP Co de Phone Number [address] [place] [address] * Prolactin (09/11/2024 2:01 PM CDT) [facility] Prolactin 9.7 4.8 - 23.3 ng/mL Comment:Testing performed by : [facility], [address] [place]., [address] Blood 09/11/2024 2:01 PM CDT 09/11/2024 9:14 PM CDT us Priyanka Leo MACHINE PAINT MIXER LAB BLOOD ORDERABLES Final R esult Performing Organization Address City/[facility]/ZIP Co de Phone Number [address] [place] [address] * LH (09/11/2024 2:01 PM CDT) Pathologist [facility] LH 15.9 mIUnits/mL Comment: Interpretive Data Males: Adults: 1.7 - 8.6 IUnits/L Females: Follicular: 2.4 - 12.6 IUnits/L Ovulation: 14.0 - 95.6 IUnits/L Luteal: 1.0 - 11.4 IUnits/L Postmenopausal: 7.7 - 58.5 IUnits/L Current interpretive data was last revised on 2018. Blood 09/11/2024 2:01 PM CDT 09/11/2024 4:29 PM CDT Priyanka Leo MACHINE PAINT MIXER LAB BLOOD ORDERABLES Final R esult Performing Organization Address City/[facility] Co de Phone Number [address] [place] [address] * (ABNORMAL) Follicle stimulating hormone (09/11/2024 2:01 PM CDT) [facility] FSH 21.0(H) 1.5 - 12.4 IUnits/L Blood 09/11/2024 2:01 PM CDT 09/11/2024 4:29 PM CDT Priyanka Leo MACHINE PAINT MIXER LAB BLOOD ORDERABLES Final R esult Performing Organization Address City/[facility] Co de Phone Number [address] [address] * (ABNORMAL) Urinalysis reflex to microscopic and culture Urine, clean voided (09/11/2024 1:25 PM CDT) [facility] Color, ur Yellow Yellow Clarity, ur Clear Clear [facility] Specific gravity, ur 1.025 1.003 - 1.030 [facility] pH, urine 5.0 [facility] Comment: Interpretive Data U rine pH is affected by diet, medications, systemic acid-base disturbances, and renal tubular function. pH may affect urinary stone formation. For example, urine pH below 6.0 may help reduce the tendency for calcium phosphate stones and pH greater than 6.0 may reduce the tendency for uric acid stone formation. Source: [facility] Current Interpretive Data was last revised on 2017 Protein, ur ql Negative Negative [facility] Glucose, ur ql Negative Negative [facility] Ketones, ur Negative Negative [facility] Bilirubin, ur Negative Negative [facility] Blood, ur 1+(A) Negative [facility] Urobilinogen, ur <2.0 <2.0 mg/dL [facility] Nitrite, ur Negative Negative [facility] Leukocyte esterase, ur 1+(A) Negative [facility] UA reflex comment Reflex to microscopic UA will be performed. [facility] Urine, clean voided 09/11/2024 1:25 PM CDT 09/11/2024 4:32 PM CDT Narrative [facility] - 09/11/2024 4:43 PM CDT Urine Collection Method->Clean Catch Marcy Gutiérrez NP LAB MICROBIOLOGY - GENERAL OR DERABLES Final Result Performing Organization Address [facility] Co de Phone Number [address] [place] [address] * Albumin Creatinine Ratio, Urine (09/11/2024 1:25 PM CDT) Albumin Ur <12.0 mg/L Comment: Interpretive Data No reference range established. Current interpretive data was last revised 2018. Creatinine Ur 160.0 mg/dL [facility] Comment: Interpretive Data No reference range established. Current interpretive data was last revised 2018. Albumin Creatinine Ratio, Ur <8 1 - 29 mg/g [facility] Urine 09/11/2024 1:25 PM CDT 09/11/2024 4:32 PM CDT Marcy Gutiérrez NP LAB URINE ORDERABLES Final Re sult Performing Organization Address [facility] Co de Phone Number [address] [place] [address] * (ABNORMAL) Urinalysis, microscopic only (09/11/2024 1:25 PM CDT) WBC, ur 0-5 0 - 5 /HPF RBC, ur 3-5(A) 0 - 2 /HPF [facility] Epithelial cells, squamous, ur 1-5 0 - 5 /HPF [facility] Urine, clean voided 09/11/2024 1:25 PM CDT 09/11/2024 4:32 PM CDT Marcy Gutiérrez NP LAB URINE ORDERABLES Final Re sult [facility] [address] [facility] Department [place] [address] * (ABNORMAL) POCT urinalysis dipstick (09/11/2024 1:25 PM CDT) Pathologist [facility] Color, Urine, POC Dark Yellow Clarity, ur, POC Cloudy(A) Clear Glucose, ur, POC Negative Negative Bilirubin, ur, POC Negative Negative Ketones, ur, POC Negative Negative Specific Reed, POC 1.025 1.003 - 1.030 Blood, ur, POC Moderate(A) Negative pH, ur, POC 5.5 5.0 - 8.0 Protein, ur, POC Negative Negative Urobilinogen, urine, POC 0.2 0.2 - 1.0 mg/dL Nitrite, ur, POC Negative Negative Leukocytes, ur, POC Trace(A) Negative Lot Number [id number] Urine 09/11/2024 1:25 PM CDT Marcy Gutiérrez NP POINT OF CARE TEST ORDERABLES Final Result * Urine culture Urine, clean voided (09/11/2024 1:25 PM CDT) Pathologist [facility] Report Final Report: Less than 100,000 colonies/mL (clinically insignificant growth based on current clinical standards) Comment:Testing performed by : [facility], [address] [facility], [place]., [address] Organism (CLINICALLY INSIGNIFICANT GROWTH [facility] Urine, clean voided 09/11/2024 1:25 PM CDT 09/11/2024 9:44 PM CDT Narrative JAMSHID RODRIGUEZ - 09/13/2024 10:55 AM CDT Testing performed by [facility] Microbiology Laboratory ([phone]) us Marcy Gutiérrez NP LAB MICROBIOLOGY - GENERAL OR DERABLES Final Result JAMSHID RODRIGUEZ [address] [facility] Department [place] [address] * Screening Mammogram Bilateral W Gaurav (02/24/2024 10:57 AM GORE CUTTER) Anatomical Region Laterality Modality Breast Bilateral Mammography Impressions 02/25/2024 2:43 PM GORE CUTTER BI-RADS ATLAS category (overall): 1 - Negative There is no mammographic evidence of malignancy. A 1 year screening mammogram is recommended. The patient has been or will be contacted. We recommend annual screening mammography for women at average risk of breast cancer beginning at age 40, based on guidelines of the [employer] (ACR Practice Parameter for the Performance of Screening and Diagnostic Mammography) and [employer]. For women with and elevated risk of breast cancer, please refer to the ACR Practice Parameter for specific screening recommendations. The patient will be entered into a reminder system with a target due date of 1 year for her next screening exam. Narrative 02/25/2024 2:43 PM GORE CUTTER Screening Mammogram Bilateral W Gaurav: 02/24/24 The study was acquired using full field digital technology and interpreted from soft copy. 2D digital mammographic views, as well as 3D digital tomosynthesis were performed in the CC and MLO projections. CLINICAL: Breast cancer screening by mammogram. No relevant medical history has been documented for this patient. History of breast cancer in Father's Sister. COMPARISONS: 04/25/2010 Breast Imaging Diagnostic Outside Reference 04/16/2010 Breast Imaging Screening Outside Reference BREAST TISSUE: There are scattered areas of fibroglandular density. FINDINGS: No suspicious masses, suspicious calcifications, or other suspicious findings are seen within either breast. There has been no suspicious change. us Priyanka Leo NP IMG MAMMO PROCEDURES Final R esult from Last 3 Months or Most Recently Relevant to Health Maintenance Additional Health Concerns Infection Onset Date Last Indicated MDR gram neg/ESBL 07/18/2023 10/19/2023 C. difficile 06/28/2024 06/28/2024 Insurance [facility] [address] [place] [address] Advance Directives For more information, please contact: [phone] * Full Code (Latest Code Status on File) Date Activated Date Inactivated Comments 09/28/2023 8:37 PM 10/03/2023 6:50 PM * Full Code Date Activated Date Inactivated Comments 08/07/2022 1:11 AM 08/08/2022 6:11 PM * Full Code Date Activated Date Inactivated Comments 07/29/2022 9:47 PM 08/03/2022 9:09 PM * Full Code Date Activated Date Inactivated Comments 12/23/2021 10:49 PM 12/29/2021 8:48 PM Care Teams Dba Manager Relationship Specialty Start Date End Date Marcy Gutiérrez NP PCP - General Family Medicine 04/13/24 Alphonso Cagle MD Family Medicine 06/16/22 Priyanka Leo NP Nurse Practitioner Family Medicine 03/06/24 Pily Jackson DPM [address] [place] [address] Consulting Physician Foot and Ankle Surg 11/21/24
--- NOTE | 2024-11-28 14:24 | ED.FALL ---
HPI - Fall General Chief Complaint: Fall Stated Complaint: fall Time Seen by Provider: 11/28/24 13:56 Source: patient Mode of arrival: ambulatory Limitations: no limitations History of Present Illness HPI Narrative: This is a 49-year-old female that presents to the emergency department for left elbow and wrist pain. Reports she fell at a gas station. Landed on her left elbow. He did not hit her head or lose consciousness. Denies decreased range of motion or numbness. Related Data Home Medications ?Medication ?Instructions ?Recorded ?Confirmed ?Last Taken ?Type furosemide 20 mg tablet (Lasix) 40 mg PO BID 03/11/20 12/12/21 06/26/21 History potassium chloride 20 mEq 20 meq PO DAILY 03/11/20 12/12/21 06/23/21 History tablet,extended release(part/cryst) (Klor-Con M) Lactobacillus acidophilus and 1 cap PO DAILY 07/31/20 12/12/21 06/23/21 History rhamnosus 15 billion cell capsule (Probiotic) multivitamin 1 tablet PO DAILY 07/31/20 12/12/21 06/23/21 History albuterol sulfate 90 mcg/actuation 2 puff inhalation PRN PRN 12/21/20 12/12/21 Unknown History aerosol inhaler Shortness Of Breath lisinopril 10 mg tablet 10 mg PO DAILY 12/21/20 12/12/21 06/26/21 History polyethylene glycol 3350 17 17 g PO PRN PRN Constipation 12/21/20 12/12/21 06/23/21 History gram/dose oral powder metformin 500 mg tablet,extended 100 mg PO QPM 06/17/21 12/12/21 Unknown History release 24 hr ergocalciferol (vitamin D2) 1,250 1,250 mcg WEEKLY 11/24/21 12/12/21 Unknown History mcg (50,000 unit) capsule aspirin 81 mg tablet,delayed 81 mg PO DAILY 12/12/21 12/12/21 Unknown History release (Adult Low Dose Aspirin) Allergies Allergy/AdvReac Type Severity Reaction Status Date / Time Sulfa (Sulfonamide Allergy Intermediate RASH Verified 11/28/24 13:34 Antibiotics) nitrofurantoin (From Allergy Mild Rash Verified 11/28/24 13:34 Macrobid) prochlorperazine (From Allergy Mild Rash Verified 11/28/24 13:34 Compazine) metoclopramide (From Reglan) AdvReac Intermediate Anxiety Verified 11/28/24 13:34 morphine AdvReac Intermediate Nausea Verified 11/28/24 13:34 Review of Systems Review of Systems: All systems reviewed & are unremarkable except as noted in HPI and below PMFSH Past Medical History Medical History Anemia Diverticulosis Gallbladder attack Hypertension Leiomyoma Morbid obesity with BMI of 50.0-59.9, adult Neuropathy Osteoarthritis Surgical History Surgical History H/O: hysterectomy History of hernia repair Family History Family History Mother Family history of malignant neoplasm of breast in first degree relative Sibling Patient's brother is in good health No family history of malignant neoplasm Father Family history of heart disease in male family member before age 55 Other Diabetes mellitus Family history of cardiovascular disease Family history of malignant neoplasm of breast Social History Social History Smoking status: Never smoker Alcohol intake: never Substance use: never Substance use type: does not use Living arrangements: alone Gender identity (if verbalized by the patient): Female Spiritual care concerns: No Exam Narrative: GENERAL: Well-appearing, well-nourished, and in no acute distress. HEAD: Normocephalic, atraumatic. EYES: EOMI. CHEST: No respiratory distress. HEART: Regular rate EXTREMITIES: Normal range of motion. No edema or obvious deformity. Normal radial pulse. Normal sensation SKIN: Warm, dry, no rash. NEURO: No focal deficits. Alert and oriented x3. PSYCH: Normal mood and affect Course Course Emergency Course: Patient updated on her workup and agrees with plan of care Vital Signs Vital signs: Vital Signs Temperature 98.1 F 11/28/24 13:30 Pulse Rate 90 11/28/24 13:30 Respiratory Rate 16 11/28/24 13:30 Blood Pressure 152/89 H 11/28/24 13:30 Pulse Oximetry 100 11/28/24 13:30 Oxygen Delivery Room Air 11/28/24 13:30 Temperature 98.1 F 11/28/24 13:30 Pulse Rate 90 11/28/24 13:30 Respiratory Rate 16 11/28/24 13:30 Blood Pressure 152/89 H 11/28/24 13:30 Pulse Oximetry 100 11/28/24 13:30 Oxygen Delivery Room Air 11/28/24 13:30 Procedures Orthopedic Splinting/Casting Injury #1: Splinting/Casting Date: 11/28/24 Side: left Upper Extremity Immobilizer: Evan wrap MDM - Fall MDM Narrative Medical decision making narrative: Patient presents the emergency department after a fall today with left wrist and elbow pain. She is neurovascularly intact. Left wrist and elbow x-rays without acute osseous abnormalities. Patient placed in Evan wrap, instructed to rest, ice and take [id number] pain medication as needed. She is to follow up with primary provider. She was given warnings to return to the ER Differential Diagnosis Differential diagnosis: Likely fracture of wrist and other (Wrist sprain) Imaging Data Radiologist's impression: ITS Impressions Wrist X-Ray 11/28/24 14:47 IMPRESSION: No acute fracture or dislocation. EXAM/ PROCEDURE: XR elbow LT min 3V - 11/28/2024 14:35 CDT HISTORY: 49 years old Female with left elbow pain, fall COMPARISON: None available TECHNIQUE: Three view(s) FINDINGS/ IMPRESSION: There are no fractures or dislocations.Joint spaces are within normal limits. Critical Care Time Critical Care Time Critical Care Time: No Discharge Plan Discharge Clinical Impression: Acute pain of left wrist Patient Disposition: Home Condition: Stable Instructions: Wrist Sprain (ED) Additional Instructions: Return to the ER if you experience fever, redness and swelling of your extremity, numbness or any other symptoms that are concerning to you Wear EVAN wrap. No weight on the affected extremity. Ice and elevate extremity. Pain medication as needed and directed. Follow up with your doctor for further care. Patient Language: Yi Prescriptions: No Action lisinopril 10 mg tablet 10 mg PO DAILY polyethylene glycol 3350 17 gram/dose powder 17 g PO PRN PRN (Reason: Constipation) albuterol sulfate 90 mcg/actuation HFA aerosol inhaler 2 puff INHALATION PRN PRN (Reason: Shortness Of Breath) potassium chloride [Klor-Con M20] 20 mEq Tablet,Er Particles/Crystals 20 meq PO DAILY furosemide [Lasix] 20 mg Tablet 40 mg PO BID cyclobenzaprine 10 mg tablet 10 mg PO TID PRN (Reason: muscle spasm) Qty: 15 0RF ibuprofen 800 mg tablet 800 mg PO TID PRN (Reason: pain) Qty: 15 0RF ergocalciferol (vitamin D2) 1,250 mcg (50,000 unit) capsule 1,250 mcg WEEKLY cephalexin 500 mg capsule 500 mg PO Q6H 10 Days Qty: 40 0RF aspirin [Adult Low Dose Aspirin] 81 mg tablet,delayed release (DR/EC) 81 mg PO DAILY multivitamin Tablet 1 tablet PO DAILY Probiotic 15 billion cell Capsule 1 cap PO DAILY metformin 500 mg tablet extended release 24 hr 100 mg PO QPM Patient Comments: Pt waiting for after surgery- POD Follow-up/Referrals: Tsering,Alphonso Cedillo MD [Primary Care Provider, Unknown]
--- OUTSIDE RECORDS SUMMARY | 2024-11-28 14:45 | XMS_ITS | Encounter Summary ---
Author Organization [facility] Healthcare Address [address] [place] [address] Care Team Providers Care Rn Discharge Name Role Phone Alphonso Cagle MD Unavailable Kayleen ManzanoW Unavailable [phone] Priyanka Leo NP Unavailable Marcy Gutiérrez NP Primary Care Provider [phone] Pily JacksonM Unavailable [phone] Encounter Details Date Type Department Care Team (Late st Contact Info) Description 10/16/2024 Results Follow-Up [facility] Medical [facility] Family Medicine at [address] [place] [address] Marcy Gutiérrez NP [address] [place] [address] [address] [place] [address] CT Abdomen Pelvis W Contrast Social History Tobacco Use Types Packs/Day Years Used Date Smoking Tobacco: Never Smokeless Tobacco: Never Alcohol Use Standard Drinks/Week Comments Not Currently 0 (1 standard drink = 0.6 oz pur e alcohol) [facility] Utilities Answer Date Recorded In the past 12 months has [employer], gas, oil, or water company threatened [...] often do you attend chur ch or quaker services? 1 to 4 times per year 12/29/2023 Do you belong to any clubs o r organizations such as lutheran groups, unions, fraternal or athletic groups, or [...] place to sleep or slept in a fci (including now)? No 08/07/2022 PHQ-9 Answer Date [...] any time in the past [facility], were you homeless or living in a fci (including now)? No 12/29/2023 Personal Safety Answer Date Recorded Have you ever been in or are you currently in a harmful physical or emotional relationship or is someone making you feel afraid or unsafe? Denies 03/25/2024 Comments No Sex and Gender Information Value Date Recorded Sex Assigned at Not on file Legal Sex Female 12:11 AM SENIOR MICROSTRATEGY DEVELOPER Gender Identity Female 09/28/2023 5:14 PM CDT Sexual Orientation Not on file documented as of this encounter Plan of Treatment Not on file documented as of this encounter Visit Diagnoses Not on filedocumented in this encounter Additional Health Concerns Infection Onset Date Last Indicated Resolved Time MDR gram neg/ESBL 07/18/2023 10/19/2023 C. difficile 06/28/2024 06/28/2024 documented as of this encounter Care Teams Rn Discharge Relationship Specialty Start Date End Date Marcy Gutiérrez NP [address] [place] [address] PRASH[place] Luciano [address] PCP - General Family Medicine 04/13/24 Alphonso Cagle MD Family Medicine 06/16/22 Kayleen Manzano, HARD METALS HAND ENGRAVER [address] [facility] [place] Luciano [address] Assistant Store Director 12/29/23 11/07/24 Priyanka Leo NP [address] [place] [address] PRASH[place] Luciano [address] Nurse Practitioner Family Medicine 03/06/24 Pily Jackson DPM [address] [place] [id number] Consulting Physician Foot and Ankle Surg 11/21/24 documented as of this encounter
--- OUTSIDE RECORDS SUMMARY | 2024-11-28 14:45 | XMS_ITS | Clinical Summary ---
Author Organization [facility] Address [address] [place] [address] Care Team Providers Care Idea Man Name Role Phone Alphonso Cagle MD Primary Care Provider [phone] Source Comments [facility],non-[facility] Affiliates and Associated Physician Practices is amultiple site organization consisting of ambulatory clinics and hospital sitesin [place], [place], [place] and [place]. This disclosure is being madepursuant to the Care Everywhere program and may not contain all information available regarding this patient. Last updated 17.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
--- OUTSIDE RECORDS SUMMARY | 2024-11-28 14:45 | XMS_ITS | Clinical Summary ---
Author Organization [facility] [address] Address [address] [place] [address] Care Team Providers Care Senior Linux Systems Administrator Name Role Phone Alphonso Cagle MD Unavailable Priyanka Leo NP Unavailable [phone] Marcy Gutiérrez NP Primary Care Provider [phone] Pily JacksonM Unavailable [phone] Allergies Active Allergy Reactions Criticality Noted Date [...] Administer 2 sprays into each nostril daily [place] 1 spray each nare twice a day [...] activity Assessment & Plan (06/05/2024 9:54 PM DIRECTOR OF ARCHIVES): - Chronic, uncontrolled without Linzess. Linzess denied by pt insurance - Initiate Movantik 25 mg daily - Ensure adequate fluid and fiber intake - Follow up in three weeks Other insomnia 04/13/2024 Assessment & Plan (04/13/2024 4:18 PM DIRECTOR OF ARCHIVES): Not at goal Preventive patient from being active during day due to fatigue Increase amitriptyline to 25 mg HS May also help patient with chronic pain thus improving mobility as well and promoting weight loss Hepatomegaly 03/29/2024 Assessment & Plan (03/29/2024 9:05 AM DIRECTOR OF ARCHIVES): - Incidentally noted on abdominal CT at recent ER visit - CT also noted significant hepatic steatosis - Obtain right upper quadrant ultrasound for further evaluation - Most recent CMP with normal liver enzymes Hemorrhoids 03/29/2024 Assessment & Plan (05/08/2024 4:07 PM DIRECTOR OF ARCHIVES): - Chronic, improved with use of diazepam rectal ointment Assessment & Plan (04/11/2024 12:54 PM DIRECTOR OF ARCHIVES): - Reports improvement with use of diazepam rectal cream - Continue diazepam 2.5 mg rectal kit twice daily as needed - Ensure adequate fluid intake, follow high-fiber diet to prevent constipation which can in turn worsen hemorrhoids - Continue MiraLax 17 g daily Assessment & Plan (03/29/2024 9:08 AM DIRECTOR OF ARCHIVES): - Recent exacerbation resolved - Patient reports [...] 5 Assessment & Plan (05/30/2024 2:38 PM DIRECTOR OF ARCHIVES): Does not have functioning scale at home Unable to come in d/t weather Assessment & Plan (05/16/2024 1:06 PM DIRECTOR OF ARCHIVES): Weight: 316.4 BMI: 52.7 Body Fat: 72.4 Skeletal Muscle: 16.1 Fat-Free Mass: 87.4 SQ Fat: 62.1 Visceral Fat: 30 Body Water: 18.9 Muscle Mass: 82.0 Bone Mass: 5.4 Protein: 5.0 Assessment & Plan (04/27/2024 5:16 PM DIRECTOR OF ARCHIVES): Weight: 316.2 BMI: 52.7 Body Fat: 72.4 Skeletal Muscle: 16.1 Fat-Free Mass: 87.2 SQ Fat: 62.0 Visceral Fat: 30 Body Water: 19.0 Muscle Mass: 82.2 Bone Mass: 5.4 Protein: 5.0 Assessment & Plan (04/13/2024 4:17 PM DIRECTOR OF ARCHIVES): Weight: 316 BMI: 52.6 Body Fat: 72.3 Skeletal Muscle: 16.1 Fat-Free Mass: 87.6 SQ Fat: 62 Visceral Fat: 30 Body Water: 19 Muscle Mass: 82.2 Bone Mass: 5.4 Protein: 5 Assessment & Plan (03/22/2024 1:36 PM DIRECTOR OF ARCHIVES): Weight: 314.2 BMI: 52.3 Body Fat: 71.7 Skeletal Muscle: 16.5 Fat-Free Mass: 89 SQ Fat: 61.4 Visceral Fat: 30 Body Water: 19.4 Muscle Mass: 83.6 Bone Mass: 5.4 Protein: 5 Assessment & Plan (03/15/2024 1:09 PM DIRECTOR OF ARCHIVES): Weight: 317.2 BMI: 52.9 Body Fat: 72.5 Skeletal Muscle: 16 Fat-Free Mass: 87 SQ Fat: 62.2 Visceral Fat: 30 Body Water: 18.9 Muscle Mass: 82.2 Bone Mass: 5.4 Protein: 5 Assessment & Plan (03/08/2024 8:51 PM DIRECTOR OF ARCHIVES): Improving! Weight: 312.8 BMI: 52.1 Body Fat: 71.4% Skeletal Muscle: 16.7% Fat-Free Mass: 89.4lb SQ Fat: 61.1% Visceral Fat: 30 Body Water: 19.6% Muscle Mass: 83.8lb Bone Mass: 5.4lb Protein: 5.0% Assessment & Plan (03/01/2024 11:37 AM DIRECTOR OF ARCHIVES): Treatment: Medication: None Specific Diet: start tracking [...] to 15mg BID. Has been unable to sweet pickle maker prescription d/t pharmacy issues. Paperwork sent to office to approve increase. Assessment & Plan (08/15/2024 2:57 PM CDT): Not at goal Add torsemide 20mg daily x10d Continue Lasix 80mg daily Pt to message in 1 week if pain not improved and will increase Oxycontin ER to 15mg BID Assessment & Plan (06/05/2024 9:53 PM DIRECTOR OF ARCHIVES): - Chronic, increased pain - Increase Oxy [...] symptoms Assessment & Plan (05/30/2024 2:40 PM DIRECTOR OF ARCHIVES): Not at goal Refer to genetics to r/o CMT disease Repeat XR Assessment & Plan (05/08/2024 4:07 PM DIRECTOR OF ARCHIVES): - Chronic, pain improving with extended release [...] pain Assessment & Plan (04/11/2024 12:53 PM DIRECTOR OF ARCHIVES): - Chronic, pain uncontrolled - Extended release [...] pain Assessment & Plan (03/29/2024 9:05 AM DIRECTOR OF ARCHIVES): - Chronic, pain uncontrolled - Extended release [...] pain Assessment & Plan (03/16/2024 2:07 PM DIRECTOR OF ARCHIVES): - Not at goal - Using boot as prescribed but continues to have substantial pain - Given chronicity of condition, resubmit appeal for oxycodone ER 10mg BID - Continue oxy IR 10mg q6h PRN at this time while awaiting second appeal - UDS appropriate on 02/17/24 - CSA signed 02/17/24 - [place] PDMP reviewed 02/17/24 Assessment & Plan (02/17/2024 7:55 PM DIRECTOR OF ARCHIVES): Not at goal Using boot as prescribed [...] still 10 out 10, no improvement with [place] 7.5-325 mg q6h PRN - change [place] 7.5- 325 mg q.6 hours p.r.n. to [...] DME Assessment & Plan (03/14/2024 9:17 AM DIRECTOR OF ARCHIVES): Stable. No new wounds to the legs [...] needed Assessment & Plan (03/01/2024 11:38 AM DIRECTOR OF ARCHIVES): Not at goal Waiting on results from lymphedema study Assessment & Plan (02/17/2024 7:52 PM DIRECTOR OF ARCHIVES): Not at goal No improvement with lymphedema therapy No improvement with diuretics Given number to schedule NM lymph study before plastics will accept referral Refer to OT for motorized w/c eval Assessment & Plan (01/05/2024 2:44 PM CDT): Not at goal Waiting on insurance auth for compression pumps Starts PT on 01/10 Continue with wound care Has specialty [place] shoes to be fitted Referral to podiatry [...] 12/23/2021 Assessment & Plan (05/08/2024 4:05 PM DIRECTOR OF ARCHIVES): - Chronic, improved with Linzess at 72 mcg - Authorization pending with insurance. Patient given samples in office today. - Encouraged increase fluid and fiber intake Assessment & Plan (04/27/2024 3:49 PM DIRECTOR OF ARCHIVES): Not at goal Exacerbated by pain meds Preventing weight loss Previously failed on metamucil, benefiber, Miralax, Senna, Colace, bisacodyl New order for Linzess 72mcg Assessment & Plan (04/11/2024 12:51 PM DIRECTOR OF ARCHIVES): Improving Chronic idiopathic exacerbated by opioids for pain Failed Miralax daily Continue Linzess 72mcg daily Given sample while in office Assessment & Plan (03/15/2024 1:12 PM DIRECTOR OF ARCHIVES): Not at goal Chronic idiopathic exacerbated by [...] 12/23/2021 Assessment & Plan (02/17/2024 7:53 PM DIRECTOR OF ARCHIVES): Stable Refill Miralax to pharm New order [...] tolerated Assessment & Plan (04/10/2022 1:35 PM DIRECTOR OF ARCHIVES): Patient following up status post right 3rd [...] abx Assessment & Plan (05/30/2024 2:38 PM DIRECTOR OF ARCHIVES): Treatment: Medication: Metformin and s/e with phentermine [...] LLE Assessment & Plan (05/16/2024 1:32 PM DIRECTOR OF ARCHIVES): Treatment: Medication: Metformin, Phentermine, and stopping phentermine [...] possible Assessment & Plan (04/27/2024 5:15 PM DIRECTOR OF ARCHIVES): Treatment: Medication: Phentermine and did not know [...] bottles per day Goals for next visit: 8042-3053 calories, 90 g of protein, decrease phentermine to 30 mg to decrease side effects. Restart metformin XR 1000 mg daily. Refer to bariatric given lack of weight loss. Assessment & Plan (04/13/2024 4:16 PM DIRECTOR OF ARCHIVES): Treatment: Medication: Phentermine and ran out, no issues with it though Specific Diet: HighProteinLowCarb Activity: is walking, doing upper body exercises, and Daily Steps count <3k Sleep: not sleeping as well d/t pain Stress: pain, finances Water: 8 bottles per day Goals for next visit: work on NEAT activity, calories 1400, protein 70-90. Assessment & Plan (03/22/2024 1:36 PM DIRECTOR OF ARCHIVES): Treatment: Medication: Phentermine tolerating well without side [...] TID Assessment & Plan (03/15/2024 1:09 PM DIRECTOR OF ARCHIVES): Medication: Phentermine and increase to 2 tablets [...] phentermine Assessment & Plan (03/08/2024 8:49 PM DIRECTOR OF ARCHIVES): Treatment: Medication: None and Start on phentermine Specific Diet: HighProteinLowCarb Activity: is walking less than 1000 steps, doing chair exercises Stress: chronic health issues, filing for disability Water: 4-5 bottles Goals for next visit: find better protein foods, download tracking rosmery and start, pool membership to be more active Assessment & Plan (03/01/2024 11:37 AM DIRECTOR OF ARCHIVES): Not at goal Start tracking diet Short term goal: under 300lbs medical terminologist goal: 250lbs Assessment & Plan (02/09/2024 2:37 PM CDT): - BMI 52.75 - refill of metformin 500 mg twice daily sent to patient pharmacy - Try to cut back on calories. Most people should eat between 8800-4422 calories to lose weight. Decrease your carbohydrate [...] 11/10/2024 Assessment & Plan (06/12/2024 9:04 AM DIRECTOR OF ARCHIVES): - POC influenza testing positive for influenza [...] 11/10/2024 Assessment & Plan (05/08/2024 4:08 PM DIRECTOR OF ARCHIVES): - Obtain STAT right foot x-ray for further evaluation - Further plan based upon x-ray results. If osteomyelitis noted we will need to be sent to emergency room for further evaluation. Open wound of toe 04/11/2024 11/10/2024 Assessment & Plan (04/11/2024 12:55 PM DIRECTOR OF ARCHIVES): - Acute - Obtain x-ray of right [...] 04/27/2024 Assessment & Plan (03/29/2024 9:10 AM DIRECTOR OF ARCHIVES): - Continue Medrol Dosepak - Initiate a [...] 11/10/2024 Assessment & Plan (03/16/2024 2:06 PM DIRECTOR OF ARCHIVES): - Initiate Flonase 50 mcg per actuation nasal spray, 2 sprays each nostril once per day - Continue daily use of Zyrtec 10 mg - Report back to office with continued or worsening symptoms Pain of left hip 02/09/2024 04/13/2024 Assessment & Plan (03/16/2024 2:05 PM DIRECTOR OF ARCHIVES): - Continue plan as outlined in HPI Assessment & Plan (02/09/2024 2:38 PM CDT): - Pain medication regimen as listed below - obtain left hip x-ray for further evaluation Parkinson's disease ([facility]) 02/07/2024 02/09/2024 Acute cystitis with hematuria 07/26/2023 [...] 11/23/2023 Assessment & Plan (04/11/2023 9:21 AM DIRECTOR OF ARCHIVES): VSS, NAD, lungs CTAB Rapid COVID, flu [...] Description 11/22/2024 1:15 PM CDT Office Visit [facility] Vascular and Vein Surgery [address] [place] [address] [address] [place] [address] Jason Gross MD Charcot arthropathy of midfoot (Primary Dx); Primary hypertension; Mixed hyperlipidemia; Lymphedema 11/22/2024 Documentation [facility] Family Medicine at [address] [place] [address] Marcy Gutiérrez NP PA OxyContin 11/21/2024 Telephone [facility] Family Medicine at [address] [place] [address] Marcy Gutiérrez NP 11/10/2024 8:30 AM CDT Office Visit [facility] at [address] [place] [address] Marcy Gutiérrez NP Opioid-induced constipation (Primary Dx); PVD (peripheral vascular disease) with claudication; Charcot arthropathy of midfoot; Amputation of toe of left foot; Primary osteoarthritis of both knees; Acquired hallux rigidus of left foot; Lymphedema; Mixed hyperlipidemia; Pre-diabetes 11/10/2024 Telephone [facility] Medicine at [address] [address] Marcy Gutiérrez NP Prior Auth (Linzess) 11/09/2024 Telephone [facility] OP Physical Therapy [address] [place] [address] Johana Bee, [place]OV[place]A 11/09/2024 Telephone [facility] at [address] [address] Marcy Gutiérrez NP Re: Shower chair 11/08/2024 Telephone [facility] at [address] [address] Marcy Gutiérrez NP Medication Problem 11/08/2024 Orders Only [facility] at [address] [address] Marcy Gutiérrez NP Lymphedema (Primary Dx) 11/07/2024 1:15 PM CDT Office Visit [facility] at [address] [address] Alphonso Cagle MD Chronic idiopathic constipation (Primary Dx); Lymphedema; Charcot arthropathy of midfoot 11/07/2024 Nurse Triage [facility] at [address] [address] Marcy Gutiérrez NP 10/16/2024 Results Follow-Up [facility] at [address] [place] [address] [address] CT Abdomen Pelvis W Contrast 10/09/2024 1:38 PM CDT - 10/09/2024 11:59 PM CDT Hospital Encounter [facility] [address] [place] [address] Recurrent Clostridioides difficile diarrhea Discharge Disposition: Discharge to home or self care 09/12/2024 Telephone [facility] Medical [facility] Orthopedics and Sports Medicine [address] [place] [address] [address] [place] [address] Natividad Medina PA refill 09/12/2024 Results Follow-Up [facility] at [address] [place] [address] Marcy Gutiérrez NP Comprehensive metabolic panel, Lipid panel, CBC with auto differential, Additional followed-up results: 9 09/12/2024 Results Follow-Up [facility] at [address] [address] Priyanka Leo NP Follicle stimulating hormone, LH, Prolactin 09/11/2024 2:00 PM CDT Lab [facility] Office Bldg [address] [place] [address] Polycystic ovaries; Menopause; Gross hematuria; Healthcare maintenance 09/11/2024 1:59 PM CDT - 09/11/2024 11:59 PM CDT Hospital Encounter [facility] Bldg [address] OP Lab [address] [place] [address] Discharge Disposition: Discharge to home or self care 09/11/2024 1:[address] [facility] Bldg [address] OP Lab [address] [place] [address] Healthcare maintenance; Sweating abnormality; Polycystic ovaries; Menopause; Gross hematuria 09/11/2024 1:30 PM CDT Clinical Support [facility] Family Medicine at [place] [phone] [facility] [address] [place] [address] Hematuria, unspecified type (Primary Dx) 09/11/2024 Orders Only [facility] Medicine at [address] [place] [address] Marcy Gutiérrez NP 09/11/2024 Results Follow-Up [facility] at [address] [place] [address] Marcy Gutiérrez NP POCT urinalysis dipstick 09/11/2024 Telephone [facility] Minimally Invasive Surgery [address] [place] [address] Medical Office Building [address] [place] [address] Christopher Ramon CMA 09/07/2024 3:30 PM CDT Office Visit [facility] Infectious Disease [address] [facility] [address] [place] [address] Misael Cervantes MD Recurrent Clostridioides difficile diarrhea 08/28/2024 Telephone [facility] Family Medicine at [address] [place] [address] Marcy Gutiérrez NP Medical Question/Miscellaneo us from [...] Heart disease Father Edgar Cabrera Hyperlipidemia Father Edgar Cabrera Hypertension Father Edgar Cabrera Breast cancer Father's Sister Crohn's disease Maternal Grandmother Anemia Mother Genoveva Cabrera Arthritis Mother Genoveva Cabrera Cancer Mother Genoveva Cabrera Hyperlipidemia Mother Genoveva Cabrera Hypertension Mother Genoveva Cabrera Lymphoma Mother Genoveva Cabrera Ovarian cancer Sister Relation Name Status Comments Brother Jadon Alive Father Edgar Cabrera Alive Father's Sister Maternal Grandmother Mother Genoveva Cabrera Alive Sister Social History Tobacco Use Types Packs/Day Years Used Date Smoking Tobacco: Never Smokeless Tobacco: Never Tobacco Cessation:Counseling Given: Not Answered Alcohol Use Standard Drinks/Week Comments Not Currently 0 (1 standard drink = 0.6 oz pur e alcohol) [facility] Utilities Answer Date Recorded In the past 12 months has [employer], gas, oil, or water [employer] threatened to shut off services in your [...] week 12/29/2023 How often do you attend [facility] or faith services? 1 to 4 times per year 12/29/2023 Do you belong to any clubs o r organizations such as uatsdin groups, unions, fraternal or athletic groups, or [...] any time in the past 12 m [facility], were you homeless or living in [...] on file Legal Sex Female 12:11 AM DIRECTOR OF ARCHIVES Gender Identity Female 09/28/2023 5:14 PM CDT [...] Read Routine (OP Routine) 02/24/2024 10:57 AM DIRECTOR OF ARCHIVES Breast cancer screening by mammogram from Last [...] by Jeramy Cabezas M.D. T: Report ID: [id number] Reading Location: [place] [address] Procedure Note Jeramy Cabezas Jr., MD - [...] by Jeramy Cabezas M.D. T: Report ID: [id number] Reading Location: [id number] Misael Cervantes MD IMG CT PROCEDURES Final Resu lt * Blood smear review (09/11/2024 2:03 PM CDT) RBC morphology Normal Platelet estimate Automated Count Confirmed JAMSHID RODRIGUEZ Comment:No platelet clumps s een on smear Blood 09/11/2024 2:03 PM CDT 09/11/2024 4:29 PM CDT Marcy Gutiérrez NP LAB BLOOD ORDERABLES Final Re sult Performing Organization Address [facility] Co de Phone Number JAMSHID [address] [place] [address] * eGFR (09/11/2024 2:03 PM [...] ORDERABLES Final Re sult Performing Organization Address City/[facility]/ZIP Co de Phone Number CERNER [address] [place] [address] * Differential, auto (09/11/2024 2:03 PM CDT) Neutrophil abs 6.13 1.50 - 6.50 K/cumm Imm gran abs 0.02 0.00 - 0.10 K/cumm [facility] Lymphocyte abs 2.10 0.80 - 3.30 K/cumm [facility] Monocyte abs 0.67 0.20 - 0.80 K/cumm [facility] Eosinophil abs 0.18 0.00 - 0.50 K/cumm [facility] Basophil abs 0.04 0.00 - 0.10 K/cumm [facility] Neutrophil pct 67.1 % [facility] Comment: Interpretive Data Percent cell count reference ranges are not reported, since discordance with absolute values may lead to misinterpretation of CBC data. Current Interpretive Data was last revised on 2017. Imm gran pct 0.2 % [facility] Comment: Interpretive Data Percent cell count reference ranges are not reported, since discordance with absolute values may lead to misinterpretation of CBC data. Current Interpretive Data was last revised on 2017. Lymphocyte pct 23.0 % [facility] Comment: Interpretive Data Percent cell count reference ranges are not reported, since discordance with absolute values may lead to misinterpretation of CBC data. Current Interpretive Data was last revised on 2017. Monocyte pct 7.3 % [facility] Comment: Interpretive Data Percent cell count reference ranges are not reported, since discordance with absolute values may lead to misinterpretation of CBC data. Current Interpretive Data was last revised on 2017. Eosinophil pct 2.0 % [facility] Comment: Interpretive Data Percent cell count reference ranges are not reported, since discordance with absolute values may lead to misinterpretation of CBC data. Current Interpretive Data was last revised on 2017. Basophil pct 0.4 % [facility] Comment: Interpretive Data Percent cell count reference ranges are not reported, since discordance with absolute values may lead to misinterpretation of CBC data. Current Interpretive Data was last revised on 2017. Blood 09/11/2024 2:03 PM CDT 09/11/2024 4:29 PM CDT Marcy Gutiérrez SENIOR SQL DATABASE DEVELOPER LAB BLOOD ORDERABLES Final Re sult Performing Organization Address [facility] Co de Phone Number JAMSHID [address] [employer] [address] * Thyroid Function [place] (09/11/2024 2:03 PM CDT) Pathologist [facility] TSH 1.10 0.30 - 4.20 mcIUnit/mL Blood 09/11/2024 2:03 PM CDT 09/11/2024 4:29 PM CDT Marcy Gutiérrez SENIOR SQL DATABASE DEVELOPER LAB BLOOD ORDERABLES Final Re sult Performing Organization Address [facility] de Phone Number JAMSHID [address] [employer] [address] * Iron profile w/ IBC (09/11/2024 2:03 PM CDT) Pathologist [facility] Iron 67 35 - 145 mcg/dL TIBC 315 250 - 400 mcg/dL [facility] Transferrin saturation 21 20 - 50 % [facility] Blood 09/11/2024 2:03 PM CDT 09/11/2024 4:29 PM CDT Marcy Gutiérrez SENIOR SQL DATABASE DEVELOPER LAB BLOOD ORDERABLES Final Re sult Performing Organization Address [facility] Co de Phone Number [address] [employer] [address] * CBC with auto differential (09/11/2024 2:03 PM CDT) Pathologist [facility] WBC 9.14 3.80 - 9.90 K/cumm Hgb 12.4 11.9 - 15.5 g/dL [facility] Hct 37.1 35.6 - 45.5 % [facility] Plt 259 150 - 400 K/cumm [facility] MPV 11.3 9.1 - 12.3 fL [facility] RBC 4.06 3.90 - 5.20 M/cumm [facility] MCV 91.4 81.3 - 96.4 fL [facility] MCH 30.5 27.1 - 33.3 pg [facility] MCHC 33.4 32.3 - 35.7 g/dL [facility] RDW CV 12.8 11.1 - 14.9 % [facility] RDW SD 42.5 35.7 - 48.1 fL [facility] NRBC abs 0.00 0.00 - 0.01 K/cumm [facility] Blood 09/11/2024 2:03 PM CDT 09/11/2024 4:29 PM CDT Marcy Gutiérrez NP LAB BLOOD ORDERABLES Edited R esult - Final Performing Organization Address City/[facility]/ZIP Co de Phone Number [address] [place] [place] [address] * (ABNORMAL) Vitamin D 25 hydroxy (09/11/2024 2:03 PM CDT) Pathologist [facility] Vitamin D 25-OH 19.0(L) 30.0 - 80.0 ng/mL Blood 09/11/2024 2:03 PM CDT 09/11/2024 4:29 PM CDT Marcy Gutiérrez NP LAB BLOOD ORDERABLES Final Re sult Performing Organization Address City/[facility] Co de Phone Number [address] [employer] [address] * (ABNORMAL) Hemoglobin A1c (09/11/2024 2:03 PM CDT) Hgb A1C 5.7(H) 4.0 - 5.6 % Estimated Average Glucose 117 mg/dL [facility] Comment: The ADA recommends reporting an estimated Average Glucose (eAG) with all Hemoglobin A1c results using the equation derived from a study of 507 normal and diabetic adults. Minority populations were underrepresented and children were not included. (Diabetes Care 31:9007-0039, 2008). The eAG is not equivalent to a fasting glucose. Blood 09/11/2024 2:03 PM CDT 09/11/2024 4:29 PM CDT Marcy Gutiérrez SENIOR SQL DATABASE DEVELOPER LAB BLOOD ORDERABLES Final Re sult Performing Organization Address [facility] de Phone Number JAMSHID [address] [employer] [address] * Folate (09/11/2024 2:03 PM CDT) Folic acid 15.0 >=5.0 ng/mL Blood 09/11/2024 2:03 PM CDT 09/11/2024 4:28 PM CDT Marcy Gutiérrez SENIOR SQL DATABASE DEVELOPER LAB BLOOD ORDERABLES Final Re sult Performing Organization Address [facility] de Phone Number [id number] [employer] [address] * Vitamin B12 (09/11/2024 2:03 PM CDT) Vitamin B12 782 230 - 1,250 pg/mL Blood 09/11/2024 2:03 PM CDT 09/11/2024 4:29 PM CDT Marcy Gutiérrez NP LAB BLOOD ORDERABLES Final Re sult Performing Organization Address [facility] de Phone Number [address] [employer] [address] * (ABNORMAL) Lipid panel (09/11/2024 2:03 PM [...] revised on 2023. Non-HDL Cholesterol 226 mg/dL [facility] Comment: Interpretive Data Ages < [...] last revised on 2017. Chol/HDL ratio 8 [facility] Blood 09/11/2024 2:03 PM CDT 09/11/2024 4:29 PM CDT Narrative [facility] - 09/11/2024 7:16 PM CDT Has the patient been fasting for 8 hours or more?->Yes Marcy Gutiérrez NP LAB BLOOD ORDERABLES Final Re sult [facility] [address] [facility] Department [place] [address] * (ABNORMAL) Comprehensive metabolic panel (09/11/2024 2:03 PM CDT) [facility] Sodium 139 135 - 145 mmol/L Potassium, pl 4.1 3.3 - 4.9 mmol/L [facility] Chloride 104 97 - 110 mmol/L [facility] CO2 23 22 - 32 mmol/L [facility] Anion gap 12 2 - 15 mmol/L [facility] BUN 13 6 - 25 mg/dL [facility] Creatinine 0.59(L) 0.60 - 1.10 mg/dL [facility] Glucose 111 70 - 199 mg/dL [facility] Comment: Interpretive Data Fasting glucose [...] 2022. Calcium 9.7 8.5 - 10.3 mg/dL [facility] Bilirubin, total 0.4 0.1 - 1.2 mg/dL [facility] Protein, pl 7.6 6.5 - 8.5 g/dL [facility] Albumin 4.3 3.5 - 5.0 g/dL [facility] Alk phos 77 40 - 130 Units/L [facility] ALT 34 7 - 45 Units/L [facility] AST 32 10 - 45 Units/L [facility] Blood 09/11/2024 2:03 PM CDT 09/11/2024 4:29 PM CDT us Marcy Gutiérrez SENIOR SQL DATABASE DEVELOPER LAB BLOOD ORDERABLES Final Re sult Performing Organization Address City/[facility]/ZIP Co de Phone Number [address] [place] [address] * Prolactin (09/11/2024 2:01 PM CDT) [facility] Prolactin 9.7 4.8 - 23.3 ng/mL Comment:Testing performed by : [facility], [address] [place]., [address] Blood 09/11/2024 2:01 PM CDT 09/11/2024 9:14 PM CDT us Priyanka Leo SENIOR SQL DATABASE DEVELOPER LAB BLOOD ORDERABLES Final R esult Performing Organization Address City/[facility]/ZIP Co de Phone Number [address] [place] [address] * LH (09/11/2024 2:01 PM CDT) Pathologist [facility] LH 15.9 mIUnits/mL Comment: Interpretive Data Males: Adults: 1.7 - 8.6 IUnits/L Females: Follicular: 2.4 - 12.6 IUnits/L Ovulation: 14.0 - 95.6 IUnits/L Luteal: 1.0 - 11.4 IUnits/L Postmenopausal: 7.7 - 58.5 IUnits/L Current interpretive data was last revised on 2018. Blood 09/11/2024 2:01 PM CDT 09/11/2024 4:29 PM CDT Priyanka Leo SENIOR SQL DATABASE DEVELOPER LAB BLOOD ORDERABLES Final R esult Performing Organization Address City/[facility] Co de Phone Number [address] [employer] [address] * (ABNORMAL) Follicle stimulating hormone (09/11/2024 2:01 PM CDT) [facility] FSH 21.0(H) 1.5 - 12.4 IUnits/L Blood 09/11/2024 2:01 PM CDT 09/11/2024 4:29 PM CDT Priyanka Leo SENIOR SQL DATABASE DEVELOPER LAB BLOOD ORDERABLES Final R esult Performing Organization Address City/[facility] Co de Phone Number [address] [address] * (ABNORMAL) Urinalysis reflex to microscopic and culture Urine, clean voided (09/11/2024 1:25 PM CDT) [facility] Color, ur Yellow Yellow Clarity, ur Clear Clear [facility] Specific gravity, ur 1.025 1.003 - 1.030 [facility] pH, urine 5.0 [facility] Comment: Interpretive Data U rine pH is affected by diet, medications, systemic acid-base disturbances, and renal tubular function. pH may affect urinary stone formation. For example, urine pH below 6.0 may help reduce the tendency for calcium phosphate stones and pH greater than 6.0 may reduce the tendency for uric acid stone formation. Source: [facility] Current Interpretive Data was last revised on 2017 Protein, ur ql Negative Negative [facility] Glucose, ur ql Negative Negative [facility] Ketones, ur Negative Negative [facility] Bilirubin, ur Negative Negative [facility] Blood, ur 1+(A) Negative [facility] Urobilinogen, ur <2.0 <2.0 mg/dL [facility] Nitrite, ur Negative Negative [facility] Leukocyte esterase, ur 1+(A) Negative [facility] UA reflex comment Reflex to microscopic UA will be performed. [facility] Urine, clean voided 09/11/2024 1:25 PM CDT 09/11/2024 4:32 PM CDT Narrative [facility] - 09/11/2024 4:43 PM CDT Urine Collection Method->Clean Catch Marcy Gutiérrez NP LAB MICROBIOLOGY - GENERAL OR DERABLES Final Result Performing Organization Address [facility] Co de Phone Number [address] [employer] [address] * Albumin Creatinine Ratio, Urine (09/11/2024 1:25 PM CDT) Albumin Ur <12.0 mg/L Comment: Interpretive Data No reference range established. Current interpretive data was last revised 2018. Creatinine Ur 160.0 mg/dL [facility] Comment: Interpretive Data No reference range established. Current interpretive data was last revised 2018. Albumin Creatinine Ratio, Ur <8 1 - 29 mg/g [facility] Urine 09/11/2024 1:25 PM CDT 09/11/2024 4:32 PM CDT Marcy Gutiérrez NP LAB URINE ORDERABLES Final Re sult Performing Organization Address [facility] Co de Phone Number [address] [place] [address] * (ABNORMAL) Urinalysis, microscopic only (09/11/2024 1:25 PM CDT) WBC, ur 0-5 0 - 5 /HPF RBC, ur 3-5(A) 0 - 2 /HPF [facility] Epithelial cells, squamous, ur 1-5 0 - 5 /HPF [facility] Urine, clean voided 09/11/2024 1:25 PM CDT 09/11/2024 4:32 PM CDT Marcy Gutiérrez NP LAB URINE ORDERABLES Final Re sult [facility] [address] [facility] Department [place] [address] * (ABNORMAL) POCT urinalysis dipstick (09/11/2024 1:25 PM CDT) Pathologist [facility] Color, Urine, POC Dark Yellow Clarity, ur, POC Cloudy(A) Clear Glucose, ur, POC Negative Negative Bilirubin, ur, POC Negative Negative Ketones, ur, POC Negative Negative Specific [place], POC 1.025 1.003 - 1.030 Blood, ur, POC Moderate(A) Negative pH, ur, POC 5.5 5.0 - 8.0 Protein, ur, POC Negative Negative Urobilinogen, urine, POC 0.2 0.2 - 1.0 mg/dL Nitrite, ur, POC Negative Negative Leukocytes, ur, POC Trace(A) Negative Lot Number [id number] Urine 09/11/2024 1:25 PM CDT Marcy Gutiérrez NP POINT OF CARE TEST ORDERABLES Final Result * Urine culture Urine, clean voided (09/11/2024 1:25 PM CDT) Pathologist [facility] Report Final Report: Less than 100,000 colonies/mL (clinically insignificant growth based on current clinical standards) Comment:Testing performed by : [facility], [address] [facility], [place]., [address] Organism (CLINICALLY INSIGNIFICANT GROWTH [facility] Urine, clean voided 09/11/2024 1:25 PM CDT 09/11/2024 9:44 PM CDT Narrative [facility]AM[facility] RODRIGUE[facility] - 09/13/2024 10:55 AM CDT Testing performed by [facility] ([phone]) us Marcy Gutiérrez NP LAB MICROBIOLOGY - GENERAL OR DERABLES Final Result [facility] [address] [facility] Department [place] [address] * Screening Mammogram Bilateral W Gaurav (02/24/2024 10:57 AM DIRECTOR OF ARCHIVES) Anatomical Region Laterality Modality Breast Bilateral Mammography Impressions 02/25/2024 2:43 PM DIRECTOR OF ARCHIVES BI-RADS ATLAS category (overall): 1 - Negative There is no mammographic evidence of malignancy. A 1 year screening mammogram is recommended. The patient has been or will be contacted. We recommend annual screening mammography for women at average risk of breast cancer beginning at age 40, based on guidelines of the [employer] (ACR Practice Parameter for the Performance of Screening and Diagnostic Mammography) and [employer]. For women with and elevated risk of breast cancer, please refer to the ACR Practice Parameter for specific screening recommendations. The patient will be entered into a reminder system with a target due date of 1 year for her next screening exam. Narrative 02/25/2024 2:43 PM DIRECTOR OF ARCHIVES Screening Mammogram Bilateral W Gaurav: 02/24/24 The [...] 07/18/2023 10/19/2023 C. difficile 06/28/2024 06/28/2024 Insurance [facility] [address] [address] [place] [address] Advance Directives For more information, please contact: [phone] * Full Code (Latest Code Status on File) Date Activated Date Inactivated Comments 09/28/2023 8:37 PM 10/03/2023 6:50 PM * Full Code Date Activated Date Inactivated Comments 08/07/2022 1:11 AM 08/08/2022 6:11 PM * Full Code Date Activated Date Inactivated Comments 07/29/2022 9:47 PM 08/03/2022 9:09 PM * Full Code Date Activated Date Inactivated Comments 12/23/2021 10:49 PM 12/29/2021 8:48 PM Care Teams Senior Linux Systems Administrator Relationship Specialty Start Date End Date Marcy Gutiérrez NP PCP - General Family Medicine 04/13/24 Alphonso Cagle MD Family Medicine 06/16/22 Priyanka Leo NP Nurse Practitioner Family Medicine 03/06/24 Pily Jackson DPM [address] [place] [id number] Consulting Physician Foot and Ankle Surg 11/21/24
--- OUTSIDE RECORDS SUMMARY | 2024-11-28 14:45 | XMS_ITS | Clinical Summary ---
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
== END 2024-11-28 15:34 | disposition home or self-care (01) ==
PROVIDERS: Emergency Provider Physician Assistant; PCP Family Medicine
DX: S69.92XA Unspecified injury of left wrist, hand and finger(s), initial encounter (principal); S59.902A Unspecified injury of left elbow, initial encounter; I10 Essential (primary) hypertension; E66.01 Morbid (severe) obesity due to excess calories; Z68.43 Body mass index [BMI] 50.0-59.9, adult; G62.9 Polyneuropathy, unspecified; M19.90 Unspecified osteoarthritis, unspecified site; Z90.710 Acquired absence of both cervix and uterus; W19.XXXA Unspecified fall, initial encounter
CPT/HCPCS: 73080; 73110; 99284